=== PATIENT | female | born 1930 | race Caucasian/White ===

== ENCOUNTER 2018-12-16 11:59 | Inpatient (IN) ==
[2018-12-16 12:43] LABS: Basophils # (auto) 0.05 K/uL (0-0.2); Basophils % (auto) 0.5 %; Eosinophils % (auto) 2.9 %; Hemoglobin 14.6 g/dL (12.0-16.0); Immature Granulocytes # (auto) 0.03 K/uL (0.00-0.02); Immature Granulocytes % (auto) 0.3 %; Lymphocytes # (auto) 2.52 K/uL (1.2-3.4); Lymphocytes % (auto) 24.7 %; Mean Corpuscular Volume 90.3 fL (80-100); Mean Platelet Volume 10.1 fL (7.4-10.4); Monocytes # (auto) 1.08 K/uL (0.11-0.59); Monocytes % (auto) 10.6 %; Neutrophils # (auto) 6.24 K/uL (1.4-6.5); Platelet Count 254 K/uL (130-400); RDW Coefficient of Variation 15.4 % (11.5-14.5); RDW Standard Deviation 50.8 fL (36.4-46.3); Red Blood Count 4.76 M/uL (4.2-5.4); White Blood Count 10.22 K/uL (4.8-10.8)
[2018-12-16 13:05] LABS: INR 1.1 (0.9-1.1); Partial Thromboplastin Time 27.1 Seconds (21.0-31.0); Prothrombin Time 10.9 Seconds (9.0-12.0)
[2018-12-16 13:07] LABS: Albumin Globulin Ratio 0.7 (0.9-2); Albumin Level 3.2 gm/dl (3.4-5.0); BUN Creatinine Ratio 17.7 (10-20); Bilirubin,Total 0.8 mg/dl (0.2-1); Calcium 9.9 mg/dl (8.5-10.1); Creatinine Clr Calc Pharmacy 31.5 ml/min; Est GFR (African American) 54.9; Est GFR (Non-African American) 47.4; Globulin 4.7 gm/dl (2.5-4.0); Potassium 4.3 mmol/L (3.5-5.1); Total Protein 7.9 gm/dl (6.4-8.2)
[2018-12-16] MEDS ORDERED: LABETALOL HCL IV 5 MG/ML 20ML IV STA (13:58)
[2018-12-16] MEDS ORDERED: ASPIRIN CHEW 324 MG PO STA (14:04)
--- NOTE | 2018-12-16 16:52 | History & Physical Report ---
Date of Service December 16, 2018 Assessment & Plan (1) Cerebrovascular accident, embolic: 88F with known paroxysmal atrial fibrillation on eliquis who presents to the hospital after a routine brain MRI found bilateral infarcts suspicious for embolic stroke. Per report, she has had gradual worsening memory loss over the last 6-12 months. #CVA -Brain MRI 16 December shows foci of acute and subacute infarct in the left temporal and occipital lobes, right frontal lobe, right basal ganglia. Bilateral distribution of the infarcts suspicious for embolic etiology. Also an old right parietal lobe infarct. -Pt has known risk factors and is currently on Eliquis. Question of noncompliance (given memory loss) v failure of NOAC. Anti factor Xa>1.5 suggests presence of medication but can not be reliable for efficacy. May need to consider warfarin. -Neurology consulted, appreciate recommendations. -continue Eliquis -pending CTA head and neck -pending TTE -pending lipids, A1C -if pass swallow eval, ok for PO meds and heart healthy diet. -Neuro checks, PT/OT, Speech #Paroxysmal atrial fibrillation on eliquis -rate controlled here -TTE pending as above -continue eliquis FEN/GI: NSS at 60ml/hr while NPO. Can be discontinued once passes swallow eval as above. DVT ppx: ASA, eliquis CODE STATUS: FULL as discussed with pt and son at bedside. DISPO: Med/Tele Other on going medical problems: #Hypertension -cont home telmisartan #hyperlipidemia -cont home pravastatin 20mg #Hypothyroid -cont home levothyroxine Incontinence -cont home darifenacin (2) Dysphasia: (3) Atrial fibrillation: (4) Hypertension: (5) Hyperlipidemia: (6) Short-term memory loss: History of Present Illness Primary Care Provider: Charles Blanchard Patient presented to her PCP on December 07 with complaint of short-term memory loss, a brain MRI was ordered. There was also concern for aspiration risk due to observed choking when swallowing. Her atrial fibrillation was rate controlled at that time. She was alert and answered questions appropriately at that time however was not able to draw clock or say who the president of the country was which was new for her as of 1 year prior. Subsequent to an abnormal brain MRI today suspicious for embolic stroke, hospitalist service is consulted for admission/further evaluation. She is accompanied by her son today. PMH -Atrial fibrillation -Echo in 2015 normal LVH, EF 65%. Severe mitral annular calcification, moderate TR, mild LVH. SH Uses meals on wheels for 1 meal, she has an aide who comes every evening for 3 hours. Her son is her caregiver. Has a history of falls at home. Needs help with self hygiene. Allergies Allergy/AdvReac Type Severity Reaction Status Date / Time No Known Allergies Allergy Unverified 02/01/15 22:20 Home Medications Home Medications Medication Instructions Recorded Confirmed Type apixaban [Eliquis] 2.5 mg PO BID 12/16/18 12/16/18 History calcium carbonate-vitamin D3 1 tab PO DAILY 12/16/18 12/16/18 History [[place] 500 + D3] darifenacin 7.5 mg PO DAILY 12/16/18 12/16/18 History levothyroxine 75 mcg PO DAILY 12/16/18 12/16/18 History multivitamin 1 tab PO DAILY 12/16/18 12/16/18 History omega-3 fatty acids 1,000 mg PO DAILY 12/16/18 12/16/18 History pravastatin 20 mg PO HS 12/16/18 12/16/18 History telmisartan 80 mg PO BID 12/16/18 12/16/18 History Past Med/Surg History Medical History Urinary tract infection (Acute) Atrial fibrillation with rapid ventricular response (Acute) Heart disease (Chronic) Hypertension (Chronic) Hx of glaucoma Family History Other Family history non-contributory Social History Preferred Language: Kiswahili marital status: Single Current Living Situation: Family current occupational status: retired Feels Safe at Home: Yes Smoking Status: Never smoker Review of Systems All systems reviewed & are unremarkable except as noted in HPI & below Physical Exam Vital Signs (Past 24 Hours): Last Vital Signs Temp 36.7 C 12/16/18 12:00 Pulse 88 12/16/18 15:50 Resp 18 12/16/18 15:50 BP 141/91 H 12/16/18 15:50 Pulse Ox 98 12/16/18 15:50 Physical Exam: Vitals noted as above and within normal limits with the exception of mild hypertension. GENERAL: Awake, answers questions appropriately, nontoxic-appearing, in no distress HENT: Normocephalic, atraumatic. Mucus membranes appear dry. EYES: Sclera non-icteric. EOMI. Conjunctival vertical pigmentation noted bilaterally. NECK: Supple. Full range of motion. RESPIRATORY: Clear to auscultation. Normal work of breathing. CARDIAC: Irreg/irreg. Extremities warm and well perfused, 2+ radial pulses bilaterally; 2+ posterior tibialis pulses bilaterally. ABDOMEN: Soft, non-distended. No tenderness to palpation in all four quadrants. No rebound or guarding. No masses. Bowel sounds are normal. LOWER EXTREMITIES: Inspection of calves reveal equal size bilaterally. They are non-tender. No edema. No discoloration. NEURO: No focal motor deficits noted. Speech in tact. EOMI. Sensation in tact. CN II-XII in tact. Decreased vision deficit in right eye. Cerebellar testing in tact. SKIN: Rash not present. No jaundice noted. Significant lesions not present. PSYCH: Appropriate mood and affect. Cooperative. Exam as done by Chayo Liang MD, Scrub Nurse. Results & Data Laboratory Results 12/16/18 12/16/18 12/16/18 Range/Units 15:02 12:41 12:21 WBC (4.8-10.8) K/uL RBC (4.2-5.4) M/uL Hgb (12.0-16.0) g/dL Hct (37-47) % MCV (80-100) fL MCH (25-34) pg MCHC (32-36) g/dL RDW Std Deviation (36.4-46.3) fL RDW Coeff of Nicole (11.5-14.5) % Plt Count (130-400) K/uL MPV (7.4-10.4) fL Immature Gran % (Auto) % Neut % (Auto) % Lymph % (Auto) % [place] % (Auto) % Eos % (Auto) % Baso % (Auto) % Immature Gran # (Auto) (0.00-0.02) K/uL Neut # (Auto) (1.4-6.5) K/uL Lymph # (Auto) (1.2-3.4) K/uL [place] # (Auto) (0.11-0.59) K/uL Eos # (Auto) (0-0.5) K/uL Baso # (Auto) (0-0.2) K/uL PT (9.0-12.0) Seconds INR (0.9-1.1) APTT (21.0-31.0) Seconds PTT Ratio Heparin Anti-Xa, LM Wt > 1.50 Cancelled Sodium (136-145) mmol/L Potassium (3.5-5.1) mmol/L Chloride (98-107) mmol/L Carbon Dioxide (21-32) mmol/L Anion Gap (3-11) BUN (7-18) mg/dl Creatinine (0.6-1.2) mg/dl Est Cr Clr Drug Dosing ml/min Est GFR ( Amer) Est GFR (Non-Af Amer) BUN/Creatinine Ratio (10-20) Glucose (70-99) mg/dl Calcium (8.5-10.1) mg/dl Magnesium (1.8-2.4) mg/dl Total Bilirubin (0.2-1) mg/dl AST (15-37) U/L ALT (12-78) U/L Alkaline Phosphatase (45-117) U/L Total Protein (6.4-8.2) gm/dl Albumin (3.4-5.0) gm/dl Globulin (2.5-4.0) gm/dl Albumin/Globulin Ratio (0.9-2) Specimen Hemolysis Blood Type O Positive Antibody Screen NEGATIVE 12/16/18 12/16/18 12/16/18 Range/Units 12:21 12:21 12:21 WBC 10.22 (4.8-10.8) K/uL RBC 4.76 (4.2-5.4) M/uL Hgb 14.6 (12.0-16.0) g/dL Hct 43.0 (37-47) % MCV 90.3 (80-100) fL MCH 30.7 (25-34) pg MCHC 34.0 (32-36) g/dL RDW Std Deviation 50.8 H (36.4-46.3) fL RDW Coeff of Nicole 15.4 H (11.5-14.5) % Plt Count 254 (130-400) K/uL MPV 10.1 (7.4-10.4) fL Immature Gran % (Auto) 0.3 % Neut % (Auto) 61.0 % Lymph % (Auto) 24.7 % [place] % (Auto) 10.6 % Eos % (Auto) 2.9 % Baso % (Auto) 0.5 % Immature Gran # (Auto) 0.03 H (0.00-0.02) K/uL Neut # (Auto) 6.24 (1.4-6.5) K/uL Lymph # (Auto) 2.52 (1.2-3.4) K/uL [place] # (Auto) 1.08 H (0.11-0.59) K/uL Eos # (Auto) 0.30 (0-0.5) K/uL Baso # (Auto) 0.05 (0-0.2) K/uL PT 10.9 (9.0-12.0) Seconds INR 1.1 (0.9-1.1) APTT 27.1 (21.0-31.0) Seconds PTT Ratio 1.0 Heparin Anti-Xa, LM Wt Sodium 138 (136-145) mmol/L Potassium 4.3 (3.5-5.1) mmol/L Chloride 107 (98-107) mmol/L Carbon Dioxide 27 (21-32) mmol/L Anion Gap 4.0 (3-11) BUN 19 H (7-18) mg/dl Creatinine 1.05 (0.6-1.2) mg/dl Est Cr Clr Drug Dosing 31.5 ml/min Est GFR ( Amer) 54.9 Est GFR (Non-Af Amer) 47.4 BUN/Creatinine Ratio 17.7 (10-20) Glucose 122 H (70-99) mg/dl Calcium 9.9 (8.5-10.1) mg/dl Magnesium 2.0 (1.8-2.4) mg/dl Total Bilirubin 0.8 (0.2-1) mg/dl AST 29 (15-37) U/L ALT 20 (12-78) U/L Alkaline Phosphatase 102 (45-117) U/L Total Protein 7.9 (6.4-8.2) gm/dl Albumin 3.2 L (3.4-5.0) gm/dl Globulin 4.7 H (2.5-4.0) gm/dl Albumin/Globulin Ratio 0.7 L (0.9-2) Specimen Hemolysis Blood Type Antibody Screen Diagnostic Findings [place], [place] [phone] Magnetic Resonance Report Patient: Jackie EWING Date: 12/16/18 MR#: [id number]: [address] Acct ID:[id number]: Date: [address] Zip: [place] [address] Age: 88Location: MRI Sex: F Room/Bed: Att Phy: Charles Blanchard M.D.Diagnosis: HEARING LOSS, MEMORY LOSS Jenelle Phy: Charles Blanchard M.D.Service Date: 12/16/18 Fam Phy: Interpreting Phy: Joe Hurd MD Admit Phy: Ordering Phy: Charles Blanchard M.D. cc: ~ MRI OF THE BRAIN WITHOUT CONTRAST CLINICAL HISTORY: HEARING LOSS, MEMORY LOSS COMPARISON STUDY: Noncontrast head CT dated 08/31/2016 FINDINGS: Sagittal T1, axial diffusion, proton density and T2 weighted axial, coronal FLAIR, and axial T1-weighted images were acquired. No intra or extra-axial mass lesions are visualized There are foci restricted water diffusion within the left occipital and temporal lobes. There is also punctate foci project water diffusion within the right frontal lobe and right basal ganglia. The findings are consistent with acute/subacute infarcts. Given the biodistribution, an embolic etiology must be considered. There is no evidence of ventricular dilatation. Proton density T2-weighted and FLAIR images reveal scattered foci of increased T2 signal within the white matter, likely on a small vessel basis. Foci of increased T2 signal within the left temporal and occipital lobes are consistent with infarct. There is also evidence for a prior right posterior parietal lobe infarct. There are no abnormal flow voids. IMPRESSION: 1. Foci of acute/subacute infarction involving the left temporal and occipital lobes 2. Punctate foci project water diffusion within the right frontal lobe and right basal ganglia, also consistent with acute/subacute infarcts 3. The bilateral distribution of the infarcts raise the possibility of an embolic etiology 4. Old right parietal lobe infarct Electronically signed by: Joe Hurd M.D. 12/16/2018 11:31 AM Code Status & VTE Plan Code Status FULL VTE Prophylaxis Plan VTE Prophylaxis will be ordered: Yes Supervising Physician Co-Signing Physician Notes Pt seen/examined in conjunction with resident MD Jez Liang. Orders and plan of admission formulated with resident. 88 y/o F Hx AF, HTN, HLD, Hypothroid - anticoagulated with Apixaban. Sent fro MRI by PCP due to memory loss and concern for dysphagia. MRI revealed foci of acute and subacute infarct in the left temporal and occipital lobes, right frontal lobe, right basal ganglia. This would indicate embolic CVA despite Apixaban although persistent compliance could not be verified, especially in lite of her dementia. OE AAO - speech clear S1,2 irr CTAB NT, ND No CCE No clear motor deficits at time of admission P: - She is placed on ASA for this kourtney A neuro consult is pending and decision on continuation of Apixaban will be made It may be better to place her on Coumadin so levels can be monitored - Cont Synthroid - Cont Statin and hold Telmisartan due to acute CVAs Resident Activity Tracking Resident Involvement: Resident Care Provided Care Provided: Adult Hospital Medicine (1) Cerebrovascular accident, embolic Precerebral and cerebral artery: unspecified cerebral artery Qualified Code(s): I63.40 - Cerebral infarction due to embolism of unspecified cerebral artery
--- NOTE | 2018-12-16 18:59 | Emergency Department Note ---
Entered by Laney Herrera acting as a scribe for History of Present Illness General Chief complaint: Stroke/CVA Symptoms Stated complaint: SENT MRI POSSIBLE STROKE Time Seen by Provider: 12/16/18 12:09 Source: patient and family History of Present Illness Onset (ago): month(s) (a few months ago) Location: head Pain Consistency: + other (persistent) Maximum Pain Intensity: 0 Quality: + other (stroke like symptoms) Associated symptoms: + denies other symptoms (difficulty walking, abdominal pain, vision changes) and + other (memory loss, difficulty swallowing); no chest pain, no fever/chills (fever), no headaches, no nausea/vomiting (vomiting), no shortness of breath and no weakness (numbness) The patient is an 88 year old female who presents to the Emergency Room with complaints of persistent stroke like symptoms starting a few months ago. The patients son states that for the past few months the patient has been having increased memory loss and difficulty swallowing when she eats solid foods. He notes that she has no issues drinking, but when she eats, she coughs. He states that he took her to her PCP and they ordered a brain scan. He states that the findings on the MRI showed that she has had a stroke and they were sent to the ED. The patient states that she feels fine. The patients son notes that she is on Xarelto for a history of atrial fibrillation. He notes that she is not always in that rhythm and it comes and goes. He notes that he doesn't believe she has missed any doses of her Xarelto. The patient denies numbness/weakness on one side of body, difficulty walking, headache, vomiting, fever, chest pain, shortness of breath, abdominal pain, vision changes, and a history of stroke or PE. Home Medications Home Medications Medication Instructions Recorded Confirmed Type apixaban [Eliquis] 2.5 mg PO BID 12/16/18 12/16/18 History calcium carbonate-vitamin D3 1 tab PO DAILY 12/16/18 12/16/18 History [[place] 500 + D3] darifenacin 7.5 mg PO DAILY 12/16/18 12/16/18 History levothyroxine 75 mcg PO DAILY 12/16/18 12/16/18 History multivitamin 1 tab PO DAILY 12/16/18 12/16/18 History omega-3 fatty acids 1,000 mg PO DAILY 12/16/18 12/16/18 History pravastatin 20 mg PO HS 12/16/18 12/16/18 History telmisartan 80 mg PO BID 12/16/18 12/16/18 History Allergies Allergy/AdvReac Type Severity Reaction Status Date / Time No Known Allergies Allergy Unverified 02/01/15 22:20 Past Med/Surg History Medical History Urinary tract infection (Acute) Atrial fibrillation with rapid ventricular response (Acute) Heart disease (Chronic) Hypertension (Chronic) Hx of glaucoma Family History Other Family history non-contributory Social History Preferred Language: Albanian marital status: Single Current Living Situation: Family current occupational status: retired Feels Safe at Home: Yes Smoking Status: Never smoker Review of Systems See HPI for pertinent positives & negatives. and A total of 10 systems reviewed and were otherwise negative Physical Exam Vital Signs Vital Signs - 24 hr 12/16/18 12:00 12/16/18 12:31 12/16/18 12:35 Temperature 36.7 C Temperature Source Oral Sepsis Recent Fever Within 48 Hours No Sepsis New/Unexplained Change in Mental Status No Sepsis Action Taken by Nursing No Action Required Pulse Rate 75 79 78 Pulse Rate [Finger] 72 Pulse Rate from SpO2 Sensor 83 74 Pulse Rhythm [Finger] Pulse Strength [Finger] Respiratory Rate 18 15 13 Respiratory Effort / Characteristics Non-Labored Spontaneous Respiratory Depth Normal Respiratory Pattern Regular Blood Pressure 140/85 176/111 H Blood Pressure [Right Arm] 176/111 H Blood Pressure Mean 103 132 Blood Pressure Mean [Right Arm] 132 Blood Pressure Position Sitting Pulse Oximetry 98 97 96 Oxygen Delivery Method Room Air Room Air 12/16/18 12:40 12/16/18 12:50 12/16/18 13:00 Temperature Temperature Source Sepsis Recent Fever Within 48 Hours Sepsis New/Unexplained Change in Mental Status Sepsis Action Taken by Nursing Pulse Rate 85 78 82 Pulse Rate [Finger] Pulse Rate from SpO2 Sensor 82 81 75 Pulse Rhythm [Finger] Pulse Strength [Finger] Respiratory Rate 15 20 17 Respiratory Effort / Characteristics Respiratory Depth Respiratory Pattern Blood Pressure Blood Pressure [Right Arm] Blood Pressure Mean Blood Pressure Mean [Right Arm] Blood Pressure Position Pulse Oximetry 97 96 97 Oxygen Delivery Method 12/16/18 13:01 12/16/18 13:10 12/16/18 13:20 Temperature Temperature Source Sepsis Recent Fever Within 48 Hours Sepsis New/Unexplained Change in Mental Status Sepsis Action Taken by Nursing Pulse Rate 76 77 83 Pulse Rate [Finger] Pulse Rate from SpO2 Sensor 74 77 86 Pulse Rhythm [Finger] Pulse Strength [Finger] Respiratory Rate 18 18 25 H Respiratory Effort / Characteristics Respiratory Depth Respiratory Pattern Blood Pressure 190/114 H Blood Pressure [Right Arm] Blood Pressure Mean 139 Blood Pressure Mean [Right Arm] Blood Pressure Position Pulse Oximetry 94 98 96 Oxygen Delivery Method 12/16/18 13:30 12/16/18 13:31 12/16/18 13:32 Temperature Temperature Source Sepsis Recent Fever Within 48 Hours Sepsis New/Unexplained Change in Mental Status Sepsis Action Taken by Nursing Pulse Rate 89 86 86 Pulse Rate [Finger] Pulse Rate from SpO2 Sensor 79 88 80 Pulse Rhythm [Finger] Pulse Strength [Finger] Respiratory Rate 17 23 16 Respiratory Effort / Characteristics Respiratory Depth Respiratory Pattern Blood Pressure 192/106 H Blood Pressure [Right Arm] Blood Pressure Mean 134 Blood Pressure Mean [Right Arm] Blood Pressure Position Pulse Oximetry 96 98 96 Oxygen Delivery Method 12/16/18 13:40 12/16/18 13:50 12/16/18 14:00 Temperature Temperature Source Sepsis Recent Fever Within 48 Hours Sepsis New/Unexplained Change in Mental Status Sepsis Action Taken by Nursing Pulse Rate 79 87 98 H Pulse Rate [Finger] 87 Pulse Rate from SpO2 Sensor 87 84 89 Pulse Rhythm [Finger] Pulse Strength [Finger] Respiratory Rate 16 14 18 Respiratory Effort / Characteristics Respiratory Depth Respiratory Pattern Blood Pressure Blood Pressure [Right Arm] 192/106 H Blood Pressure Mean Blood Pressure Mean [Right Arm] 134 Blood Pressure Position Pulse Oximetry 95 96 96 Oxygen Delivery Method Room Air 12/16/18 14:01 12/16/18 15:00 12/16/18 15:50 Temperature Temperature Source Sepsis Recent Fever Within 48 Hours Sepsis New/Unexplained Change in Mental Status Sepsis Action Taken by Nursing Pulse Rate 81 Pulse Rate [Finger] 80 88 Pulse Rate from SpO2 Sensor 88 Pulse Rhythm [Finger] Regular Pulse Strength [Finger] Normal Respiratory Rate 20 18 18 Respiratory Effort / Characteristics Non-Labored Respiratory Depth Normal Respiratory Pattern Regular Blood Pressure 166/106 H Blood Pressure [Right Arm] 161/95 H 141/91 H Blood Pressure Mean 126 Blood Pressure Mean [Right Arm] 117 107 Blood Pressure Position Pulse Oximetry 96 96 98 Oxygen Delivery Method Room Air 12/16/18 17:00 12/16/18 18:20 Temperature Temperature Source Sepsis Recent Fever Within 48 Hours Sepsis New/Unexplained Change in Mental Status Sepsis Action Taken by Nursing Pulse Rate Pulse Rate [Finger] 88 98 H Pulse Rate from SpO2 Sensor Pulse Rhythm [Finger] Pulse Strength [Finger] Respiratory Rate 18 18 Respiratory Effort / Characteristics Respiratory Depth Respiratory Pattern Blood Pressure Blood Pressure [Right Arm] 152/97 H 152/107 H Blood Pressure Mean Blood Pressure Mean [Right Arm] 115 122 Blood Pressure Position Pulse Oximetry 98 98 Oxygen Delivery Method Constitutional: Vital signs reviewed. Eyes: Pupils are equal round reactive to light. Conjunctiva are noninjected. ENT: Pharynx is clear without erythema or exudate. Mucous membranes are moist. Neck supple without meningeal signs. Respiratory: Clear to auscultation bilaterally. Breath sounds are equal bilaterally. Cardiovascular: Regular rate and rhythm. No rubs or gallops. GI: Soft, nondistended and nontender. Bowel sounds are present. Musculoskeletal: No peripheral edema. No lower extremity tenderness. Integumentary: No cyanosis. Neurological: The patient is awake and alert. Cranial nerves II-XII are intact. Motor is 5 out of 5 all extremities. Sensation is intact to light touch all extremities. Normal speech. No pronator drift. No limb ataxia. Hard of hearing. Psychiatric: Normal affect. Course 1210: The patient was evaluated in room C10, and a complete history and physical examination were performed. 1320: I reviewed the patient's case with Dr. Yokasta HUNT Hospitalist. He will evaluate the patient for further management. He requested that I speak to Neurology. 1350: I discussed the patient's case with Dr. Cason-Neurology. She does not recommend anticoagulation with heparin or using any other anticoagulant on the patient at this time. She does recommend a Xa activity test. She recommends just having her take Aspirin, doing a carotid ultrasound, and an echo. She also recommends blood pressure control. 1359: I updated Dr. Chin Hosptalist on Neurology's recommendations at this time. 1403: I reevaluated the patient and her blood pressure was 166/106. I instructed the nurse to hold her Labatolol at this time. The patient states that she did take her morning medications. I updated her and her son on the test results and treatment plan. They verbally agree and understand. Consultations Consultation #1: I reviewed the patient's case with Dr. Yokasta HUNT Hospitalist. He will evaluate the patient for further management. He requested that I speak t o Neurology. Time: 13:20 Consultation #2: I discussed the patient's case with Dr. Cason-Neurology. She does not recommend anticoagulation with heparin or using any other anticoagulant on the patient at this time. She does recommend a Xa activity test. She recommends just having her take Aspirin, doing a carotid ultrasound, and an echo. She also recommends blood pressure control. Time: 13:50 Consultation #3: I updated Dr. Chin Hosptalist on Neurology's recommendations at this time. Time: 13:59 Administered Medications Discontinued Medications Aspirin (Aspirin) 324 mg PO NOW STA Stop: 12/16/18 14:05 Last Admin: 12/16/18 14:09 Dose: 324 mg Documented by: [id number] Labetalol HCl (Normodyne) 5 mg IV NOW STA Stop: 12/16/18 13:59 Last Admin: 12/16/18 18:38 Dose: Not Given Documented by: [id number] Medical Decision Making Differential Diagnosis Differential diagnoses include stroke, medication noncompliance, cardiac thrombus, PFO, DVT. Medical Records Attestation: I reviewed the patient's medical records. MRI OF THE BRAIN WITHOUT CONTRAST IMPRESSION: 1. Foci of acute/subacute infarction involving the left temporal and occipital lobes 2. Punctate foci project water diffusion within the right frontal lobe and right basal ganglia, also consistent with acute/subacute infarcts 3. The bilateral distribution of the infarcts raise the possibility of an embol ic etiology 4. Old right parietal lobe infarct Electronically signed by: Joe Hurd M.D. 12/16/2018 11:31 AM Home Medications Current Medication List: was personally reviewed by me Laboratory Data Attestation: I reviewed the patient's lab results. Result diagrams: 12/16/18 12:21 12/16/18 12:21 Lab Results 12/16/18 12/16/18 12/16/18 Range/Units 12:21 12:21 12:21 WBC 10.22 (4.8-10.8) K/uL RBC 4.76 (4.2-5.4) M/uL Hgb 14.6 (12.0-16.0) g/dL Hct 43.0 (37-47) % MCV 90.3 (80-100) fL MCH 30.7 (25-34) pg MCHC 34.0 (32-36) g/dL RDW Std Deviation 50.8 H (36.4-46.3) fL RDW Coeff of Nicole 15.4 H (11.5-14.5) % Plt Count 254 (130-400) K/uL MPV 10.1 (7.4-10.4) fL Immature Gran % (Auto) 0.3 % Neut % (Auto) 61.0 % Lymph % (Auto) 24.7 % Crockett % (Auto) 10.6 % Eos % (Auto) 2.9 % Baso % (Auto) 0.5 % Immature Gran # (Auto) 0.03 H (0.00-0.02) K/uL Neut # (Auto) 6.24 (1.4-6.5) K/uL Lymph # (Auto) 2.52 (1.2-3.4) K/uL [place]ckett # (Auto) 1.08 H (0.11-0.59) K/uL Eos # (Auto) 0.30 (0-0.5) K/uL Baso # (Auto) 0.05 (0-0.2) K/uL PT 10.9 (9.0-12.0) Seconds INR 1.1 (0.9-1.1) APTT 27.1 (21.0-31.0) Seconds PTT Ratio 1.0 Heparin Anti-Xa, LM Wt Sodium 138 (136-145) mmol/L Potassium 4.3 (3.5-5.1) mmol/L Chloride 107 (98-107) mmol/L Carbon Dioxide 27 (21-32) mmol/L Anion Gap 4.0 (3-11) BUN 19 H (7-18) mg/dl Creatinine 1.05 (0.6-1.2) mg/dl Est Cr Clr Drug Dosing 31.5 ml/min Est GFR ( Amer) 54.9 Est GFR (Non-Af Amer) 47.4 BUN/Creatinine Ratio 17.7 (10-20) Glucose 122 H (70-99) mg/dl Calcium 9.9 (8.5-10.1) mg/dl Magnesium 2.0 (1.8-2.4) mg/dl Total Bilirubin 0.8 (0.2-1) mg/dl AST 29 (15-37) U/L ALT 20 (12-78) U/L Alkaline Phosphatase 102 (45-117) U/L Total Protein 7.9 (6.4-8.2) gm/dl Albumin 3.2 L (3.4-5.0) gm/dl Globulin 4.7 H (2.5-4.0) gm/dl Albumin/Globulin Ratio 0.7 L (0.9-2) Specimen Hemolysis Blood Type Antibody Screen 12/16/18 12/16/18 12/16/18 Range/Units 12:21 12:41 15:02 WBC (4.8-10.8) K/uL RBC (4.2-5.4) M/uL Hgb (12.0-16.0) g/dL Hct (37-47) % MCV (80-100) fL MCH (25-34) pg MCHC (32-36) g/dL RDW Std Deviation (36.4-46.3) fL RDW Coeff of Nicole (11.5-14.5) % Plt Count (130-400) K/uL MPV (7.4-10.4) fL Immature Gran % (Auto) % Neut % (Auto) % Lymph % (Auto) % [place] % (Auto) % Eos % (Auto) % Baso % (Auto) % Immature Gran # (Auto) (0.00-0.02) K/uL Neut # (Auto) (1.4-6.5) K/uL Lymph # (Auto) (1.2-3.4) K/uL [place] # (Auto) (0.11-0.59) K/uL Eos # (Auto) (0-0.5) K/uL Baso # (Auto) (0-0.2) K/uL PT (9.0-12.0) Seconds INR (0.9-1.1) APTT (21.0-31.0) Seconds PTT Ratio Heparin Anti-Xa, LM Wt Cancelled > 1.50 Sodium (136-145) mmol/L Potassium (3.5-5.1) mmol/L Chloride (98-107) mmol/L Carbon Dioxide (21-32) mmol/L Anion Gap (3-11) BUN (7-18) mg/dl Creatinine (0.6-1.2) mg/dl Est Cr Clr Drug Dosing ml/min Est GFR ( Amer) Est GFR (Non-Af Amer) BUN/Creatinine Ratio (10-20) Glucose (70-99) mg/dl Calcium (8.5-10.1) mg/dl Magnesium (1.8-2.4) mg/dl Total Bilirubin (0.2-1) mg/dl AST (15-37) U/L ALT (12-78) U/L Alkaline Phosphatase (45-117) U/L Total Protein (6.4-8.2) gm/dl Albumin (3.4-5.0) gm/dl Globulin (2.5-4.0) gm/dl Albumin/Globulin Ratio (0.9-2) Specimen Hemolysis Blood Type O Positive Antibody Screen NEGATIVE ECG Data Attestation: I personally reviewed and interpreted this ECG as follows: Indication: other (stroke) Rate (beats per minute): 67 Rhythm: atrial fibrillation Findings: + RBBB (incomplete); no PVC and no ST elevation Blood Pressure Blood Pressure Findings: Elevated blood pressure Blood Pressure Disposition: further management by hospitalist [facility] Narrative I did evaluate the patient as noted above. I did obtain history from patient as well as her son. The patient has been having several months of neurologic symptoms including difficulty with swallowing solids as well as memory issues. She had an MRI today as described above. She has had acute and subacute infarcts likely embolic. Her sons does state that she is on Xarelto. Looking through the records she is actually on Eliquis. He does states she has been compliant with this medication. IV access was established. The patient was placed on a continuous phototypesetting equipment monitor. I did order and personally review the patient's 12-lead EKG as described above. Twelve-lead EKG demonstrates atrial fibrillation. I did order and review the patient's blood work as noted in the electronic medical record. Her white count is not elevated. Electrolytes are unremarkable. I did discuss the case with neurology. Dr. Barfield recommended starting aspirin. She did not recommend IV heparin. An anti-Xa was sent and is positive consistent with her Eliquis use. I did discuss case with the hospitalist and therapeutic case manager. The patient's blood pressure was initially slightly high but progressively increased. I did order labetalol but then it started to trend downward and so I held it. They will continue to monitor. I did discuss test results with the patient's son as well as treatment plan. Impression & Plan Cerebrovascular accident, embolic, Dysphagia Discharge Plan Visit Data Chief Complaint: Stroke/CVA Symptoms Stated Complaint: SENT MRI POSSIBLE STROKE ED Provider: Cesar Pathak Discharge Problem: Cerebrovascular accident, embolic, Dysphagia Patient Disposition: Being Evaluated by Hospitalist Discharge Instructions Interventions: ED Discharge Assessment Last Done: 12/16/18 18:39 Discharge Problem: Cerebrovascular accident, embolic Qualifiers: Precerebral and cerebral artery: unspecified cerebral artery Qualified Code(s): I63.40 - Cerebral infarction due to embolism of unspecified cerebral artery Dysphagia Qualifiers: Dysphagia type: unspecified Qualified Code(s): R13.10 - Dysphagia, unspecified The scribe's documentation has been prepared under my direction and personally reviewed by me in its entirety. I confirm that the note above accurately reflects all work, treatment, procedures, and medical decision making performed by me.
[2018-12-16] MEDS ORDERED: PHARMACIST DISCHARGE MED REC CONSULT PRN (19:26)
[2018-12-16] MEDS ORDERED: OPTIRAY 320 125ml IV PRN (20:19)
[2018-12-16] MEDS: SODIUM CHLORIDE 0.9% 1000ML 1,000 ML IV SCH (20:35)
--- NOTE | 2018-12-16 20:36 | CT Scan Report ---
CT angio head w con HISTORY: Stroke cva TECHNIQUE: Multiaxial CT angiography of the head was performed IV contrast: The cc Maximum i ntensity projection images were also obtained. A dose lowering technique was utilized adhering to e principles of ALARA. COMPARISON: None. FINDINGS: The bulk of the intracranial vasculature appears to be intact. There is moderate atheroscle rotic change of the carotid siphons. There is no evidence for aneurysm formation. There is slight truncation of the peripheral arterial structures of the middle cerebral circulation. Diminished vascular flow is identified to the posterior cerebral circulation.. This presumably is ath erosclerotic. A major filling defect is not identified. Vertebral basilar system is grossly intact. Vascular flow to the posterior cerebral circulation appea r somewhat compromised. IMPRESSION: 1. Moderate generalized atherosclerotic change throughout the intracranial vasculature. 2. Focal truncation of several peripheral vessels of the middle cerebral arterial distributions with a general decrease in vascular flow to the posterior cerebral system. These findings are presumably a therosclerotic. 3. No significant abnormality of the vertebral basilar system. The above report was generated using voice recognition software. It may contain grammatical, syntax or spelling errors. Electronically signed by: Dwaine Chaney M.D. 12/16/2018 8:34 PM
--- NOTE | 2018-12-16 20:43 | CT Scan Report ---
CT angio neck with con HISTORY: Stroke cva TECHNIQUE: Multiaxial CT angiography of the neck was performed IV contrast: 40 cc All measurem ents were calculated based on NASCET criteria. Maximum intensity projection images were also obtaine d. A dose lowering technique was utilized adhering to the principles of ALARA. COMPARISON STUDY: None. FINDINGS: The aortic arch and proximal great vessels are widely patent. Considerable plaque formatio n at the carotid bifurcations. 70% narrowing of the current bifurcations on the right as well as left . Considerable variation in diameter of the right vertebral artery compared to the left. This may be congenital. There is superimposed high degree of stenosis at approximately level of C2. Basilar appea rs unremarkable as does the left vertebral. IMPRESSION: 1. Considerable plaque formation of the carotid bifurcations. 2. 70-75% narrowing of the right carotid bifurcation and right internal carotid artery with 70% narro wing on the left. 3. Small caliber right vertebral vessel with a high degree of stenosis at the level of C2. 4. The basilar and left vertebral artery appear unremarkable. The above report was generated using voice recognition software. It may contain grammatical, syntax or spelling errors. Electronically signed by: Dwaine Chaney M.D. 12/16/2018 8:42 PM
[2018-12-16] MEDS ORDERED: TELMISARTAN 40 MG TAB PO SCH (21:00)
[2018-12-16] MEDS: APIXABAN 2.5 MG TAB PO SCH (21:20)
[2018-12-16] MEDS: PRAVASTATIN SOD 20 MG TAB PO SCH (21:21)
[2018-12-17] MEDS: LEVOTHYROXINE SODIUM 75 MCG TABLET PO SCH (06:04)
[2018-12-17 06:22] LABS: Estimated Average Glucose 117 mg/dl
[2018-12-17 06:52] LABS: Basophils # (auto) 0.06 K/uL (0-0.2); Basophils % (auto) 0.8 %; Eosinophils # (auto) 0.36 K/uL (0-0.5); Eosinophils % (auto) 4.7 %; Hematocrit (blood only) 40.6 % (37-47); Hemoglobin 13.7 g/dL (12.0-16.0); Immature Granulocytes # (auto) 0.02 K/uL (0.00-0.02); Immature Granulocytes % (auto) 0.3 %; Lymphocytes % (auto) 38.9 %; Mean Corpuscular Hgb Conc 33.7 g/dL (32-36); Mean Corpuscular Volume 90.4 fL (80-100); Mean Platelet Volume 9.9 fL (7.4-10.4); Monocytes # (auto) 0.91 K/uL (0.11-0.59); Monocytes % (auto) 11.8 %; Neutrophils # (auto) 3.37 K/uL (1.4-6.5); Neutrophils % (auto) 43.5 %; Platelet Count 232 K/uL (130-400); RDW Coefficient of Variation 15.6 % (11.5-14.5); RDW Standard Deviation 51.8 fL (36.4-46.3); Red Blood Count 4.49 M/uL (4.2-5.4); White Blood Count 7.72 K/uL (4.8-10.8)
[2018-12-17 06:59] LABS: INR 1.1 (0.9-1.1); Prothrombin Time 11.1 Seconds (9.0-12.0)
[2018-12-17 07:08] LABS: BUN Creatinine Ratio 21.9 (10-20); Calcium 9.2 mg/dl (8.5-10.1); Est GFR (Non-African American) 58.7; Potassium 3.9 mmol/L (3.5-5.1)
[2018-12-17] MEDS: APIXABAN 2.5 MG TAB PO SCH ×2 (08:45→20:51)
[2018-12-17] MEDS: MULTIVITAMIN TAB PO SCH (08:46)
[2018-12-17] MEDS: ASPIRIN 81 MG ECTAB PO SCH (08:46)
[2018-12-17] MEDS: OMEGA-3 (PURIFIED FISH OIL) 1 GM CAP PO SCH (08:46)
[2018-12-17] MEDS: CALCIUM 600MG + VIT D 400 IU TAB PO SCH (08:46)
--- NOTE | 2018-12-17 09:34 | Neurology Consultation ---
Date of Consultation December 17, 2018 Assessment & Plan (1) Cerebrovascular accident, embolic: Multifocal cardioembolic infarcts, acute to subacute. The largest infarct affects the left temporal and occipital lobes. She does have a few smaller infarcts within the right cerebral hemisphere as well. In addition to confusion, inattention, and mild aphasia, this patient also has a probable right visual field deficit. She does not have a gross hemiparesis. Patient should continue with Eliquis in light of her history of atrial fibrillation. I agree with adding daily low-dose aspirin. (2) Carotid stenosis, bilateral: This patient is a 70-75% stenosis at the right carotid bifurcation and a 70% stenosis of the left internal carotid artery on CT angiography. Interestingly, her largest infarct looks to be more consistent with a left [employer]UST[employer] territory. The significance of the observed carotid stenoses in the context of her recent infarct is not entirely clear. I tend to favor a cardioembolic etiology in light of her history of atrial fibrillation. In light of this patient's advanced age and history of atrial fibrillation, I doubt she would really be considered an appropriate candidate for carotid endarterectomy. Continued medical management would seem most appropriate. However, her bilateral carotid stenosis should have some additional outpatient monitoring with carotid ultrasound and perhaps a consultation with vascular surgery. (3) Short-term memory loss: The admission history suggests that this patient has been having some ongoing difficulty with short-term memory. She probably has an element of vascular dementia as well. However, in light of her acute infarcts it is difficult to get an accurate assessment of her baseline functioning. I suspect that she will be unable to return home to her typical living situation in light of her current neurocognitive impairments. We will see how she does with her assessments with PT/OT/speech therapy. I suspect she will require [facility] care going forward. History of Present Illness Reason for Consultation: stroke Requesting Physician: Chayo Liang MD Attending Physician: Rosalva Ochoa MD History of Present Illness The patient is an 88-year-old female with a chief complaint of memory loss and dysphagia that has been present for the past few months. Her son brought her to her primary care physician who ordered a brain MRI which revealed evidence of a recent stroke. There was subsequently instructed to go to the emergency department for further evaluation and management. The patient stroke does appear embolic. She does have a history of atrial fibrillation for which she is prescribed Eliquis. She seems to be significantly confused and is an unreliable historian. Other pertinent medical issues include hypertension, hyperlipidemia, and hypothyroidism. Her blood pressure was significantly elevated yesterday but appears to be improving. She is prescribed an antihypertensive, statin, and thyroid replacement as an outpatient. It sounds like the patient lives semi- independently. She has Meals on Wheels and a home health aide who visits her in the evening for a few hours. Her son is her primary caregiver. Again, the patient is an extremely poor historian. She is unable to provide any details pertaining to her history of present illness and does not complain of any specific symptoms at this time. Allergies Allergy/AdvReac Type Severity Reaction Status Date / Time No Known Allergies Allergy Unverified 02/01/15 22:20 Home Medications Home Medications Medication Instructions Recorded Confirmed Type apixaban [Eliquis] 2.5 mg PO BID 12/16/18 12/16/18 History calcium carbonate-vitamin D3 1 tab PO DAILY 12/16/18 12/16/18 History [[place] 500 + D3] darifenacin 7.5 mg PO DAILY 12/16/18 12/16/18 History levothyroxine 75 mcg PO DAILY 12/16/18 12/16/18 History multivitamin 1 tab PO DAILY 12/16/18 12/16/18 History omega-3 fatty acids 1,000 mg PO DAILY 12/16/18 12/16/18 History pravastatin 20 mg PO HS 12/16/18 12/16/18 History telmisartan 80 mg PO BID 12/16/18 12/16/18 History Patient History Medical History Urinary tract infection (Acute) Atrial fibrillation with rapid ventricular response (Acute) Heart disease (Chronic) Hypertension (Chronic) Hx of glaucoma Family History Other Family history non-contributory Social History Preferred Language: Monegasque Communication Ability: Effective Billing Collections Specialist Required: No Beliefs That Will Affect Care: None marital status: Single Current Living Situation: Alone current occupational status: retired Other Information That Helps Us Care for You: No Feels Safe at Home: Yes Safety Concerns: Feels Safe At This Time Smoking Status: Unknown if ever smoked Hx Alcohol Use: No Hx Substance Use: No Review of Systems Constitutional: no fever and no chills Eyes: no blind spots and no diplopia Ear, Nose, Mouth, Throat: no hearing loss Respiratory: no cough and no dyspnea Cardiovascular: no chest pain and no palpitations Gastrointestinal: no abdominal pain and no vomiting Genitourinary (Female): no dysuria Musculoskeletal: no myalgia Integumentary: + rash and + lesions Neurologic: no localized weakness, no numbness and no headache(s) Psychiatric: no paranoia and no hallucinations Hematologic / Lymphatic: no easy bleeding Physical Exam Vital Signs (Past 24 Hours): Last Vital Signs Temp 36.2 C L 12/17/18 07:08 Pulse 146 H 12/17/18 07:08 Resp 18 12/17/18 07:08 BP 134/80 12/17/18 07:08 Pulse Ox 90 12/17/18 07:08 Physical Exam: The patient is a well-developed elderly female. She is lying comfortably in bed in no acute distress. She is alert and oriented to person and hospital only. Recent and remote memory seem to be impaired although unable to reliably assess due to poor attention. Concentration impaired. Patient has mild difficulty with object naming and speech comprehension. She is able to copy simple commands but does seem to be a bit perseverative. She was able to perform simple calculations. Comprehension of simple vocabulary seems to be i ntact. There is a visual field deficit to the right with confrontation testing. Visual acuity is otherwise intact to finger count. Pupils equal round react to light and accommodation. Eye movements normal. There is no gaze preference. There is no nystagmus. Facial sensation intact. There is normal facial symmetry and strength. Hearing intact. Palate elevates to midline. Shoulder shrug intact. Tongue protrudes to midline. Sensation grossly intact in all 4 limbs to all modalities. No hemisensory neglect. Deep tendon reflexes are 2+ for the arms and legs. Plantar responses upgoing bilaterally. There is dysmetria with finger to nose and heel to rivera bilaterally. Ophthalmoscopic examination reveals normal-appearing optic disks and posterior segments. No papilledema or hemorrhages. Carotid pulses normal bilaterally, no bruits to auscultation. Gait and station not tested due to safety concerns. Patient exhibits normal muscle strength and tone for all 4 limbs. No atrophy. No abnormal movements observed. Results & Data Laboratory Results Today's labs reviewed. WBC 7.72, hemoglobin 13.7, platelet count 232, sodium 140, potassium 3.9, BUN 19, creatinine 0.88, glucose 86, calcium 9.2, triglycerides 105, cholesterol 134, HDL 37 Yesterday's labs reviewed. Hemoglobin A1c 5.7, LFTs normal. Diagnostic Findings Brain MRI completed yesterday reveals foci of acute/subacute infarct involving the left temporal and occipital lobes. There are a few small punctate infarcts within the right frontal lobe as well. There is a chronic appearing right parietal lobe infarct. Overall, patient's infarcts are likely embolic given the distribution. Images and report reviewed. CTA of the neck reveals a 70-75% narrowing of the right carotid bifurcation and a 70% narrowing at the right internal carotid artery. The right vertebral artery is of small caliber due to a severe stenosis at C2. CTA of the head reveals moderate generalized atherosclerotic change and focal truncation of several vessels of the bilateral MCA distributions due to atherosclerotic change. Electrocardiogram reveals atrial fibrillation, 67 bpm. (1) Cerebrovascular accident, embolic Precerebral and cerebral artery: unspecified cerebral artery Qualified Code(s): I63.40 - Cerebral infarction due to embolism of unspecified cerebral artery
[2018-12-17] MEDS ORDERED: PERFLUTREN LIPID MICROSPHERE (DEFINITY) IV ONE (10:30)
[2018-12-17] MEDS: SODIUM CHLORIDE 0.9% 1000ML 1,000 ML IV SCH (13:10)
--- NOTE | 2018-12-17 13:58 | Family Medicine Progress Note ---
Date of Service December 17, 2018 Assessment & Plan (1) Cerebrovascular accident, embolic: 88F with known PAF on eliquis sent to ED for brain MRI finding of bilateral infarcts suspicious for embolic stroke. MRI was done for gradual worsening memory loss over the last 6-12 months. #CVA - likely embolic -Brain MRI 16 December shows foci of acute and subacute infarct in the left temporal and occipital lobes, right frontal lobe, right basal ganglia. Bilateral distribution of the infarcts suspicious for embolic etiology. Also an old right parietal lobe infarct. -confusion, inattention, and mild aphasia, probable right visual field deficit. -Neurology input - add aspirin. -continue Eliquis -CTA head with atherosclerosis but no high grade stenosis. Neck CTA with bilateral carotid artery stenosis - 70-75% -pending TTE -Lipid panel and A1C results noted. -For VFS on wednesday. heart healthy diet. -Neuro checks, PT/OT, Speech # Carotid stenosis, bilateral: -considering age and comorbidities likely not an appropriate candidate for carotid endarterectomy. -to have outpatient carotid ultrasound and vascular surgery consult. #Short-term memory loss: -likely with some vascular dementia. -to have better assessment of baseline function as outpatient considering recent acute [place]. #Paroxysmal atrial fibrillation on eliquis -rate controlled -TTE pending as above -continue eliquis FEN/GI: Heart heathy diet. DVT ppx: ASA, eliquis CODE STATUS: FULL as discussed with pt and son at bedside. DISPO: Med/Tele Other on going medical problems: #Hypertension -hold home telmisartan #hyperlipidemia -cont home pravastatin 20mg #Hypothyroid -cont home levothyroxine Incontinence -cont home darifenacin Subjective unable to get any history. patient denies any concerns. Physical Exam Vital Signs (Past 24 Hours): Last Vital Signs Temp 36.3 C L 12/17/18 11:29 Pulse 92 H 12/17/18 11:29 Resp 18 12/17/18 11:29 BP 170/111 H 12/17/18 11:29 Pulse Ox 92 12/17/18 11:29 Constitutional: WD/WN, vitals as above Respiratory: normal respiratory effort, lungs clear to auscultation Cardiovascular: Rate/Rhythm: regular rate Gastrointestinal (Abdomen): normal bowel sounds, soft, nontender, no hepatosplenomegaly Neurologic: disoriented x 3. no motor deficit. Results & Data Laboratory Results Laboratory Tests 12/17/18 12/17/18 06:32 06:32 WBC 7.72 Hgb 13.7 BUN 19 H Creatinine 0.88 Triglycerides 105 Cholesterol 134 LDL Cholesterol, Calc 76 HDL Cholesterol 37 (1) Cerebrovascular accident, embolic Precerebral and cerebral artery: unspecified cerebral artery Qualified Code(s): I63.40 - Cerebral infarction due to embolism of unspecified cerebral artery
[2018-12-17] MEDS: PRAVASTATIN SOD 20 MG TAB PO SCH (20:51)
[2018-12-18] MEDS: LEVOTHYROXINE SODIUM 75 MCG TABLET PO SCH (06:04)
[2018-12-18 08:31] LABS: Basophils # (auto) 0.05 K/uL (0-0.2); Basophils % (auto) 0.6 %; Eosinophils # (auto) 0.63 K/uL (0-0.5); Eosinophils % (auto) 7.4 %; Hematocrit (blood only) 40.6 % (37-47); Hemoglobin 13.9 g/dL (12.0-16.0); Immature Granulocytes # (auto) 0.02 K/uL (0.00-0.02); Immature Granulocytes % (auto) 0.2 %; Lymphocytes # (auto) 2.87 K/uL (1.2-3.4); Lymphocytes % (auto) 33.7 %; Mean Corpuscular Hgb Conc 34.2 g/dL (32-36); Mean Corpuscular Volume 89.6 fL (80-100); Mean Platelet Volume 9.9 fL (7.4-10.4); Monocytes # (auto) 0.76 K/uL (0.11-0.59); Monocytes % (auto) 8.9 %; Neutrophils # (auto) 4.18 K/uL (1.4-6.5); Neutrophils % (auto) 49.2 %; Platelet Count 213 K/uL (130-400); RDW Coefficient of Variation 15.6 % (11.5-14.5); RDW Standard Deviation 51.3 fL (36.4-46.3); Red Blood Count 4.53 M/uL (4.2-5.4); White Blood Count 8.51 K/uL (4.8-10.8)
[2018-12-18 08:42] LABS: INR 1.1 (0.9-1.1); Prothrombin Time 10.9 Seconds (9.0-12.0)
[2018-12-18 08:48] LABS: BUN Creatinine Ratio 19.4 (10-20); Calcium 9.4 mg/dl (8.5-10.1); Est GFR (African American) 58.3; Est GFR (Non-African American) 50.3; Potassium 3.4 mmol/L (3.5-5.1)
[2018-12-18] MEDS: MULTIVITAMIN TAB PO SCH (09:14)
[2018-12-18] MEDS: ASPIRIN 81 MG ECTAB PO SCH (09:14)
[2018-12-18] MEDS: OMEGA-3 (PURIFIED FISH OIL) 1 GM CAP PO SCH (09:14)
[2018-12-18] MEDS: APIXABAN 2.5 MG TAB PO SCH ×2 (09:14→20:44)
[2018-12-18] MEDS: CALCIUM 600MG + VIT D 400 IU TAB PO SCH (09:14)
--- NOTE | 2018-12-18 14:14 | Family Medicine Progress Note ---
Date of Service December 18, 2018 Assessment & Plan (1) Cerebrovascular accident, embolic: 88F with known PAF on eliquis sent to ED for brain MRI finding of bilateral infarcts suspicious for embolic stroke. MRI was done for gradual worsening memory loss over the last 6-12 months. #CVA - likely embolic -Brain MRI 16 December shows foci of acute and subacute infarct in the left temporal and occipital lobes, right frontal lobe, right basal ganglia. Bilateral distribution of the infarcts suspicious for embolic etiology. Also an old right parietal lobe infarct. -confusion, inattention, and mild aphasia, probable right visual field deficit. -Echo results reviewed - small aortic valve vegetation. Likely contributing to emboli. see below. -continue Eliquis. Reviewed with son - No concern of noncompliance. -Neurology input - add aspirin. -CTA head with atherosclerosis but no high grade stenosis. Neck CTA with bilateral carotid artery stenosis - 70-75% -Lipid panel and A1C results noted. -For VFS on wednesday. heart healthy diet. -Neuro checks, PT/OT, Speech # Aortic valve small vegetation -Noted on echo. Reviewed with Dr. Dutton and Dr. Heard -Check blood culture though less likely infectious. -Will need CT surgery evaluation but likely not a surgical candidate. Discussed tertiary care transfer with son - Cheng. He will review with his brothers and get back # Carotid stenosis, bilateral: -considering age and comorbidities likely not an appropriate candidate for carotid endarterectomy. -to have outpatient carotid ultrasound and vascular surgery consult. #Short-term memory loss: -likely with some vascular dementia. -to have better assessment of baseline function as outpatient considering recent acute [place]. #Paroxysmal atrial fibrillation on eliquis -rate controlled -TTE results noted. -continue eliquis FEN/GI: Heart heathy diet. DVT ppx: ASA, eliquis CODE STATUS: FULL as discussed with pt and son at bedside. DISPO: Med/Tele Other on going medical problems: #Hypertension -hold home telmisartan #hyperlipidemia -cont home pravastatin 20mg #Hypothyroid -cont home levothyroxine Incontinence -cont home darifenacin Subjective unable to get any history. I spoke to sons and updated them yesterday on the test results. no concerns overnight - per nursing. Physical Exam Vital Signs (Past 24 Hours): Last Vital Signs Temp 36.6 C 12/18/18 11:55 Pulse 87 12/18/18 11:55 Resp 18 12/18/18 11:55 BP 171/96 H 12/18/18 11:55 Pulse Ox 93 12/18/18 11:55 Constitutional: WD/WN, vitals as above Respiratory: normal respiratory effort, lungs clear to auscultation Cardiovascular: Rate/Rhythm: regular rate Gastrointestinal (Abdomen): normal bowel sounds, soft, nontender, no hepatosplenomegaly Neurologic: Alert, responsive but disoriented. Motor limb movement intact. Limited speech. (1) Cerebrovascular accident, embolic Precerebral and cerebral artery: unspecified cerebral artery Qualified Co de(s): I63.40 - Cerebral infarction due to embolism of unspecified cerebral artery
[2018-12-18] MEDS: PRAVASTATIN SOD 20 MG TAB PO SCH (20:44)
[2018-12-19] MEDS: LEVOTHYROXINE SODIUM 75 MCG TABLET PO SCH (06:00)
[2018-12-19 06:07] LABS: Basophils # (auto) 0.04 K/uL (0-0.2); Basophils % (auto) 0.5 %; Eosinophils # (auto) 0.51 K/uL (0-0.5); Eosinophils % (auto) 5.8 %; Hematocrit (blood only) 38.5 % (37-47); Immature Granulocytes # (auto) 0.02 K/uL (0.00-0.02); Immature Granulocytes % (auto) 0.2 %; Lymphocytes # (auto) 3.24 K/uL (1.2-3.4); Lymphocytes % (auto) 36.6 %; Mean Corpuscular Hgb Conc 33.8 g/dL (32-36); Monocytes # (auto) 1.01 K/uL (0.11-0.59); Monocytes % (auto) 11.4 %; Neutrophils # (auto) 4.04 K/uL (1.4-6.5); Neutrophils % (auto) 45.5 %; Platelet Count 223 K/uL (130-400); RDW Standard Deviation 52.4 fL (36.4-46.3); Red Blood Count 4.28 M/uL (4.2-5.4); White Blood Count 8.86 K/uL (4.8-10.8)
[2018-12-19 06:26] LABS: BUN Creatinine Ratio 27.8 (10-20); Calcium 9.3 mg/dl (8.5-10.1); Creatinine Clr Calc Pharmacy 32.3 ml/min; Est GFR (African American) 63.6; Est GFR (Non-African American) 54.9; Potassium 3.9 mmol/L (3.5-5.1)
[2018-12-19 06:30] LABS: INR 1.1 (0.9-1.1); Prothrombin Time 11.2 Seconds (9.0-12.0)
[2018-12-19] MEDS: MULTIVITAMIN TAB PO SCH (09:05)
[2018-12-19] MEDS: CALCIUM 600MG + VIT D 400 IU TAB PO SCH (09:05)
[2018-12-19] MEDS: APIXABAN 2.5 MG TAB PO SCH ×2 (09:05→20:47)
[2018-12-19] MEDS: OMEGA-3 (PURIFIED FISH OIL) 1 GM CAP PO SCH (09:05)
[2018-12-19] MEDS: ASPIRIN 81 MG ECTAB PO SCH (09:05)
[2018-12-19] MEDS ORDERED: POLYETHYLENE (MIRALAX) 17 GM PACK PO PRN (09:51)
--- NOTE | 2018-12-19 10:04 | Neurology Progress Note ---
Date of Service December 19, 2018 Assessment & Plan (1) Cerebrovascular accident, embolic: Embolic stroke probably related to atrial fibrillation in spite of taking Eliquis. Embolic stroke related to endocarditis is also possible given the presence of an aortic valve vegetation. Blood cultures have been sent. Dr. Ochoa has also discussed a potential transfer to a tertiary center for further evaluation and management and possible surgical care with the patient's family. It does not look like a decision has been made as of yet, however. Although this patient has a persistent visual field defect to the right related to a recent left occipital infarct, she is otherwise neurologically stable and actually seems a bit improved compared with my last assessment of her on December 17. (2) Carotid stenosis, bilateral: As described previously, this patient has a 70-75% stenosis of the right carotid bifurcation and a 70% stenosis of the left internal carotid artery. The significance of her bilateral carotid stenosis in the context of her recent em bolic appearing strokes is unclear, but probably less likely. I would continue to suggest medical management for this issue which includes continued use of her statin as well as daily low-dose aspirin. Of course she is also on an anticoagulant in light of her history of atrial fibrillation. Additional outpatient monitoring with carotid ultrasound would also be reasonable going forward. Subjective Follow-up for stroke The patient is an 88-year-old female who presented with subacute confusion. She was found to have embolic appearing infarcts within both cerebral hemispheres. She has been confused, and inattentive and had some mild difficulty with speech and a right visual field deficit as well. She is sitting up comfortably in bed and seems to be a bit more alert and interactive this morning. Several of her sons are present at bedside this morning. The patient does not have any specific complaints at this time. She continues to exhibit some difficulty with her right visual field but does not really complain of this issue. She denies headache, weakness, or dizziness. In addition to bilateral carotid stenosis and atrial fibrillation, this patient was also found to have a small vegetation on the aortic valve on her recently completed echocardiogram. I did discuss this issue yesterday afternoon with Dr. Ochoa who had also discussed this issue with Dr. Dutton. Potential transfer to a tertiary care center has been discussed with the patient's family although she may not be a good surgical candidate. Blood cultures have been ordered. The patient continues with Eliquis and daily low-dose aspirin. Constitutional: no fever and no chills Eyes: as per Subjective / HPI Cardiovascular: no chest pain and no palpitations Neurologic: as per Subjective / HPI Physical Exam Vital Signs (Past 24 Hours): Last Vital Signs Temp 36.5 C 12/19/18 07:44 Pulse 99 H 12/19/18 07:44 Resp 16 12/19/18 07:44 BP 154/74 H 12/19/18 07:44 Pulse Ox 94 12/19/18 07:44 Physical Exam: The patient is alert and oriented to person and hospital. She is able to identify her 3 sons at bedside this morning. Attention is normal. She is able to name objects and repeat phrases. She exhibits a normal comprehension of vocabulary. The patient continues to display difficulty with her right visual field with confrontation testing. Visual acuity is otherwise normal. Pupils equal round reactive to light and accommodation. Eye movements normal. Facial sensation intact. There is no facial droop or weakness. Tongue and palate are midline. Shoulder shrug and hearing intact. Sensation intact all modalities in all 4 limbs. She does not display any signs of hemineglect. There is no dysmetria finger to nose or heel to rivera bilaterally. There is no pronator drift. Muscle strength normal for the arms and legs bilaterally. No hemiparesis. No abnormal movements observed. (1) Cerebrovascular accident, embolic Precerebral and cerebral artery: unspecified cerebral artery Qualified Code(s): I63.40 - Cerebral infarction due to embolism of unspecified cerebral artery
--- NOTE | 2018-12-19 11:16 | Family Medicine Progress Note ---
Date of Service December 19, 2018 Assessment & Plan (1) Cerebrovascular accident, embolic: 88F with known PAF on eliquis sent to ED for brain MRI finding of bilateral infarcts suspicious for embolic stroke. MRI was ordered by PCP for h/o gradual worsening memory loss over the last 6-12 months. #CVA - likely embolic -Brain MRI 16 December shows foci of acute and subacute infarct in the left temporal and occipital lobes, right frontal lobe, right basal ganglia. Bilate ral distribution of the infarcts suspicious for embolic etiology. Also an old right parietal lobe infarct. -confusion, inattention, and mild aphasia, probable right visual field deficit. -Echo results reviewed - small <4mm aortic valve vegetation. -continue Eliquis. Reviewed with son - No concern of noncompliance. However, if started on warfarin could ensure compliance (testing) vs may benefit from lovenox. -Neurology input - add aspirin. -CTA head with atherosclerosis but no high grade stenosis. Neck CTA with bilateral carotid artery stenosis - 70-75% -Lipid panel and A1C results noted. -VFS results indicate one episode of aspiration, Speech precautions outlined. -Neuro checks, PT/OT, Speech # Aortic valve small vegetation -Noted on echo. Reviewed with Dr. Dutton and Dr. Heard -Check blood culture though less likely infectious. -Will need CT surgery evaluation but likely not a surgical candidate. Discussed with family, pt to go for rehab. # Carotid stenosis, bilateral: -considering age and comorbidities likely not an appropriate candidate for carotid endarterectomy. -to have outpatient carotid ultrasound and vascular surgery consult. #Short-term memory loss: -likely with some vascular dementia. -to have better assessment of baseline function as outpatient considering recent acute NC. #Paroxysmal atrial fibrillation on eliquis -rate controlled -TTE results noted. -continue eliquis -- if started warfarin could ensure compliance vs may benefit from lovenox. FEN/GI: Heart heathy diet. DVT ppx: ASA, eliquis CODE STATUS: FULL as discussed with pt and son at bedside. DISPO: Med/Tele Other on going medical problems: #Hypertension -hold home telmisartan #hyperlipidemia -cont home pravastatin 20mg #Hypothyroid -cont home levothyroxine Incontinence -cont home darifenacin (2) Dysphasia: (3) Atrial fibrillation: (4) Hypertension: (5) Hyperlipidemia: (6) Short-term memory loss: Supervising Physician Co-Signing Physician Notes I personally examined the patient and verified all beatty points of history and exam, discussed case, and agree with decision making with Dr Liang. No new complaints, updated sons to the best of my ability and answered all of their questions to their satisfaction. Review of systems otherwise negative except for as above Vitals noted, in general she is awake and alert pleasant no distress. HEENT normocephalic atraumatic mucous membranes are moist. Breathing is unlabored no accessory muscle use good effort. Skin shows no rashes no pallor or icterus. Cerebrovascular eventsgiven the MRI pattern it seems that her vegetation causing embolic phenomena is most likely. Continue Eliquis for now, review the literature to ensure optimal anticoagulation. Await further time for blood cul tures, although anticipate no growth. Review of medical literature it appears that without hemodynamic instability or recurrent clotting that surgery would not be indicated, separate from the fact that with her age and frailty she would be a very concerning surgical candidate as far as her ability to recover. Hopefully work towards rehab placement, with a goal of back home with family support, discussed the potential of family 24-hour supervision, but they noted this is not at all feasible. Otherwise as above Subjective Seen and examined at bedside. Sons Meño, Kenyon and Cheng are at bedside as well. Pt doing clinically well over the weekend, tolerating PO. Discussed case with neurology, cardiology. Pt not likely to be a surgical candidate for valvular surgery. Review of Systems Unobtainable due to cognitive status (limited due to pt's inattention, but generally does not endorse complaints.) Physical Exam Vital Signs (Past 24 Hours): Last Vital Signs Temp 36.5 C 12/19/18 07:44 Pulse 99 H 12/19/18 07:44 Resp 16 12/19/18 07:44 BP 154/74 H 12/19/18 07:44 Pulse Ox 94 12/19/18 07:44 Physical Exam: Vitals noted as above and within normal limits with the exception of mild hypertension. GENERAL: Awake, answers questions appropriately, nontoxic-appearing, in no distress. Distractible. HENT: Normocephalic, atraumatic. Mucus membranes appear normal. EYES: Sclera non-icteric. EOMI. Conjunctival vertical pigmentation noted bilaterally. NECK: Supple. Full range of motion. RESPIRATORY: Clear to auscultation. Normal work of breathing. CARDIAC: Irreg/irreg. Extremities warm and well perfused. ABDOMEN: Soft, non-distended. No tenderness to palpation in all four quadrants. No rebound or guarding. No masses. Bowel sounds are normal. LOWER EXTREMITIES: Inspection of calves reveal equal size bilaterally. They are non-tender. No edema. No discoloration. NEURO: No focal motor deficits noted. Speech in tact. EOMI. Sensation in tact. CN II-XII in tact. SKIN: Rash not present. No jaundice noted. Significant lesions not present. PSYCH: Appropriate mood, and flat affect. Cooperative. Exam as done by Chayo Liang MD, Produce Department Supervisor. Results & Data Laboratory Results 12/19/18 12/19/18 12/19/18 Range/Units 05:37 05:37 05:37 WBC 8.86 (4.8-10.8) K/uL RBC 4.28 (4.2-5.4) M/uL Hgb 13.0 (12.0-16.0) g/dL Hct 38.5 (37-47) % MCV 90.0 (80-100) fL MCH 30.4 (25-34) pg MCHC 33.8 (32-36) g/dL RDW Std Deviation 52.4 H (36.4-46.3) fL RDW Coeff of Nicole 16.0 H (11.5-14.5) % Plt Count 223 (130-400) K/uL MPV 10.0 (7.4-10.4) fL Immature Gran % (Auto) 0.2 % Neut % (Auto) 45.5 % Lymph % (Auto) 36.6 % [place] % (Auto) 11.4 % Eos % (Auto) 5.8 % Baso % (Auto) 0.5 % Immature Gran # (Auto) 0.02 (0.00-0.02) K/uL Neut # (Auto) 4.04 (1.4-6.5) K/uL Lymph # (Auto) 3.24 (1.2-3.4) K/uL [place] # (Auto) 1.01 H (0.11-0.59) K/uL Eos # (Auto) 0.51 H (0-0.5) K/uL Baso # (Auto) 0.04 (0-0.2) K/uL PT 11.2 (9.0-12.0) Seconds INR 1.1 (0.9-1.1) Sodium 143 (136-145) mmol/L Potassium 3.9 (3.5-5.1) mmol/L Chloride 110 H (98-107) mmol/L Carbon Dioxide 23 (21-32) mmol/L Anion Gap 10.0 (3-11) BUN 26 H (7-18) mg/dl Creatinine 0.93 (0.6-1.2) mg/dl Est Cr Clr Drug Dosing 32.3 ml/min Est GFR ( Amer) 63.6 Est GFR (Non-Af Amer) 54.9 BUN/Creatinine Ratio 27.8 H (10-20) Glucose 95 (70-99) mg/dl Calcium 9.3 (8.5-10.1) mg/dl Medications Administered Current Inpatient Medications Apixaban (Eliquis) 2.5 mg PO BID [facility] Stop: 01/15/19 20:59 Last Admin: 12/19/18 20:47 Dose: 2.5 mg Documented by: Aspirin (Ecotrin Ectab) 81 mg PO QAM [facility] Stop: 01/16/19 08:59 Last Admin: 12/19/18 09:05 Dose: 81 mg Documented by: Dorzolamide/Timolol (Cosopt) 1 drops OPB BID [facility] Stop: 01/18/19 20:59 Last Admin: 12/19/18 20:47 Dose: 1 drops Documented by: Fish Oil ([place]-3 (Purified Fish Oil)) 1 gm PO DAILY [facility] Stop: 01/16/19 08:59 Last Admin: 12/19/18 09:05 Dose: 1 gm Documented by: Ioversol (Optiray 320 125ml) 115 ml IV ONCE PRN PRN Reason: Interaction Checking Stop: 12/20/18 20:18 Last Admin: 12/16/18 20:20 Dose: 1 ml Documented by: Latanoprost (Xalatan Oph) 1 drops OPB HS [facility] Stop: 01/18/19 20:59 Last Admin: 12/19/18 20:49 Dose: 1 drops Documented by: Levothyroxine Sodium (Synthroid) 75 mcg PO DAILYBB [facility] Stop: 01/16/19 06:29 Last Admin: 12/19/18 06:00 Dose: 75 mcg Documented by: Miscellaneous (Order Awaiting Action) 1 ea N/A QS [facility] Stop: 01/16/19 00:00 Last Admin: 12/19/18 15:18 Dose: Not Given Documented by: Miscellaneous Information (Pharmacist Discharge Med Rec Consult) 1 ea N/A UD PRN PRN Reason: Consult Stop: 01/15/19 19:25 Multivitamins (Multivitamin Tab) 1 tab PO DAILY [facility] Stop: 01/16/19 08:59 Last Admin: 12/19/18 09:05 Dose: 1 tab Documented by: Multivitamins/Minerals (Caltrate Plus) 1 tab PO DAILY [facility] Stop: 01/16/19 08:59 Last Admin: 12/19/18 09:05 Dose: 1 tab Documented by: Polyethylene Glycol (Miralax Powder Packet) 17 gm PO DAILY PRN PRN Reason: Constipation Stop: 01/18/19 09:50 Pravastatin Sodium (Pravachol) 20 mg PO HS [facility] Stop: 01/15/19 20:59 Last Admin: 12/19/18 20:47 Dose: 20 mg Documented by: Resident Activity Tracking Resident Involvement: Resident Care Provided Care Provided: Adult Hospital Medicine (1) Cerebrovascular accident, embolic Precerebral and cerebral artery: unspecified cerebral artery Qualified C ode(s): I63.40 - Cerebral infarction due to embolism of unspecified cerebral artery
--- NOTE | 2018-12-19 13:14 | Fluoroscopy Report ---
FL video swallow HISTORY: Stroke. r/o aspiration TECHNIQUE: Video fluoroscopic evaluation of swallowing was performed in the AP and lateral projection s by the speech pathology staff. The patient is fed nectar-thick and thin liquid barium, a barium coa vidhya wafer, and barium pudding. FLUOROSCOPY TIME: 2.1 minutes. A cine loop was submitted.. COMPARISON STUDY: None. FINDINGS: There is normal hyoid excursion and epiglottic deflection. There is a single episode of pre mature spillover with the nectar thick liquid resulting in aspiration and a cough. Otherwise, swallow ing function is within normal limits and no additional episodes of aspiration identified. IMPRESSION: 1. A single episode of aspiration seen during the examination. 2. Please see the speech pathologist report for detailed findings and recommendations. Electronically signed by: Romaine Harrington M.D. 12/19/2018 1:12 PM
[2018-12-19] MEDS: PRAVASTATIN SOD 20 MG TAB PO SCH (20:47)
[2018-12-19] MEDS: DORZOLAMIDE/TIMOLOL 22.3/6.8MG/ML 10 ML BTL OPB SCH (20:47)
[2018-12-19] MEDS: LATANOPROST 0.005% OP SOLN 2.5 ML BTL OPB SCH (20:49)
[2018-12-20] MEDS: LEVOTHYROXINE SODIUM 75 MCG TABLET PO SCH (05:50)
[2018-12-20] MEDS: CALCIUM 600MG + VIT D 400 IU TAB PO SCH (08:58)
[2018-12-20] MEDS: OMEGA-3 (PURIFIED FISH OIL) 1 GM CAP PO SCH (08:58)
[2018-12-20] MEDS: APIXABAN 2.5 MG TAB PO SCH ×2 (08:58→20:59)
[2018-12-20] MEDS: ASPIRIN 81 MG ECTAB PO SCH (08:58)
[2018-12-20] MEDS: MULTIVITAMIN TAB PO SCH (08:58)
[2018-12-20] MEDS: DORZOLAMIDE/TIMOLOL 22.3/6.8MG/ML 10 ML BTL OPB SCH ×2 (08:59→21:00)
--- NOTE | 2018-12-20 17:39 | Family Medicine Progress Note ---
Date of Service December 20, 2018 Assessment & Plan (1) Cerebrovascular accident, embolic: 88F with known PAF on eliquis sent to ED for brain MRI finding of bilateral infarcts suspicious for embolic stroke. MRI was ordered by PCP for h/o gradual worsening memory loss over the last 6-12 months. #CVA - likely embolic -Brain MRI 16 December shows foci of acute and subacute infarct in the left temporal and occipital lobes, right frontal lobe, right basal ganglia. Bilat eral distribution of the infarcts suspicious for embolic etiology. Also an old right parietal lobe infarct. -CTA head with atherosclerosis but no high grade stenosis. Neck CTA with bilateral carotid artery stenosis - 70-75% -Deficits include: confusion, inattention, and mild aphasia, probable right visual field deficit. No focal motor deficits thankfully. -Echo results reviewed - small <4mm aortic valve vegetation, likely nonbacterial, likely clot. Blood cultures NGTD. Hemodynamically stable. Discussed with CT surgery -- pt is not a candidate for surgical intervention. -continue Eliquis. There is not enough compelling evidence that other agent (LMWH, warfarin, or other NOAC) would be superior. Pt is allergic to xarelto as well. Discussed with cardiology, continue eliquis. -Neurology input - add aspirin. For PT/OT/Speech rehab. -Lipid panel and A1C results noted and within range. -VFS results indicate one episode of aspiration, Speech precautions outlined. #Aortic valve small vegetation -Noted on echo. Likely noninfective. As above. #Carotid stenosis, bilateral: -considering age and comorbidities likely not an appropriate candidate for carotid endarterectomy. -to have outpatient carotid ultrasound and vascular surgery consult. #Short-term memory loss: -likely with some vascular dementia. -rehab as above, although guarded prognosis given embolic nature of her stroke. #Paroxysmal atrial fibrillation on eliquis -rate controlled -TTE results noted as above. -continue eliquis. -cont antihypertensive as below. #Mild-moderate wilbert-pharyngeal dysphagia -Aspiratation precautions. -Thin liquids. Stringent oral care. Continue TRAVEL INFORMATION CENTER SUPERVISOR services on discharge. FEN/GI: Heart heathy diet. DVT ppx: ASA, eliquis CODE STATUS: FULL as discussed with pt and son at bedside. DISPO: Rehab. Other on going medical problems: #Hypertension -reshme home telmisartan #hyperlipidemia -cont home pravastatin 20mg #Hypothyroid -cont home levothyroxine Incontinence -cont home darifenacin (2) Dysphasia: (3) Atrial fibrillation: (4) Hypertension: (5) Hyperlipidemia: (6) Short-term memory loss: Supervising Physician Co-Signing Physician Notes I personally examined the patient and verified all beatty points of history and exam, discussed case, and agree with decision making with Dr Liang. No new complaints, yet again updated sons to the best of my ability and answered all of their questions to their satisfaction. Acute rehab would be the primary plan, SNF with a rehab emphasis being the secondary plan. Review of systems otherwise negative except for as above Vitals noted, in general she is awake and alert pleasant no distress. HEENT normocephalic atraumatic mucous membranes are moist. Breathing is unlabored no accessory muscle use good effort. Skin shows no rashes no pallor or icterus. Cerebrovascular eventsgiven the MRI pattern it seems that her vegetation causing embolic phenomena is most likely. Continue Eliquis for now, after discussions with specialists as well as review of the literature there does not appear to be a compelling reason for one blood thinner over another, the patient herself has had some difficulties with other blood thinners in the past, appears to be tolerating the Eliquis well, and compliance at home may have been questionable. Her carotid certainly could have been culprit, but given the bila teral strokes both stenoses would have had to cause embolic phenomena in short order almost able to likely than embolism from a central source. Hopefully will be able to get her to rehab soon, we are waiting for approvals. Otherwise as above Otherwise as above Subjective Pt seen and examined at bedside this AM. Sitting up in bed unassisted, eating breakfast. Does not endorse any complaints. Later, seen at bedside with claudette Anand and Kenyon -- discussed plans for rehab moving forward, recommendations. Review of Systems Unobtainable due to cognitive status Physical Exam Vital Signs (Past 24 Hours): Last Vital Signs Temp 36.6 C 12/20/18 15:14 Pulse 87 12/20/18 16:00 Resp 16 12/20/18 15:14 BP 112/72 12/20/18 15:14 Pulse Ox 95 12/20/18 15:14 Physical Exam: Vitals noted as above and within normal limits with the exception of mild hypertension. GENERAL: Awake, answers questions appropriately, nontoxic-appearing, in no distress. Distractible. HENT: Normocephalic, atraumatic. Mucus membranes appear normal. EYES: Sclera non-icteric. EOMI. Conjunctival vertical pigmentation noted bilaterally. NECK: Supple. Full range of motion. RESPIRATORY: Clear to auscultation. Normal work of breathing. CARDIAC: Irreg/irreg. Extremities warm and well perfused. ABDOMEN: Soft, non-distended. No tenderness to palpation in all four quadrants. No rebound or guarding. No masses. Bowel sounds are normal. LOWER EXTREMITIES: Inspection of calves reveal equal size bilaterally. They are non-tender. No edema. No discoloration. NEURO: No focal motor deficits noted. Speech in tact. EOMI. Sensation in tact. CN II-XII in tact. SKIN: Rash not present. No jaundice noted. Significant lesions not present. PSYCH: Appropriate mood, and flat affect. Cooperative. Exam as done by Chayo Liang MD, Fleshing Machine Operator. Results & Data Medications Administered Current Inpatient Medications Apixaban (Eliquis) 2.5 mg PO BID [facility] Stop: 01/15/19 20:59 Last Admin: 12/20/18 20:59 Dose: 2.5 mg Documented by: Aspirin (Ecotrin Ectab) 81 mg PO QAM [facility] Stop: 01/16/19 08:59 Last Admin: 12/20/18 08:58 Dose: 81 mg Documented by: Dorzolamide/Timolol (Cosopt) 1 drops OPB BID [facility] Stop: 01/18/19 20:59 Last Admin: 12/20/18 21:00 Dose: 1 drops Documented by: Fish Oil ([place]-3 (Purified Fish Oil)) 1 gm PO DAILY [facility] Stop: 01/16/19 08:59 Last Admin: 12/20/18 08:58 Dose: 1 gm Documented by: Latanoprost (Xalatan Oph) 1 drops OPB HS [facility] Stop: 01/18/19 20:59 Last Admin: 12/20/18 21:00 Dose: 1 drops Documented by: Levothyroxine Sodium (Synthroid) 75 mcg PO DAILYBB [facility] Stop: 01/16/19 06:29 Last Admin: 12/20/18 05:50 Dose: 75 mcg Documented by: Miscellaneous (Order Awaiting Action) 1 ea N/A QS [facility] Stop: 01/16/19 00:00 Last Admin: 12/20/18 15:01 Dose: Not Given Documented by: Miscellaneous Information (Pharmacist Discharge Med Rec Consult) 1 ea N/A UD PRN PRN Reason: Consult Stop: 01/15/19 19:25 Multivitamins (Multivitamin Tab) 1 tab PO DAILY [facility] Stop: 01/16/19 08:59 Last Admin: 12/20/18 08:58 Dose: 1 tab Documented by: Multivitamins/Minerals (Caltrate Plus) 1 tab PO DAILY [facility] Stop: 01/16/19 08:59 Last Admin: 12/20/18 08:58 Dose: 1 tab Documented by: Polyethylene Glycol (Miralax Powder Packet) 17 gm PO DAILY PRN PRN Reason: Constipation Stop: 01/18/19 09:50 Last Admin: 12/20/18 09:17 Dose: 17 gm Documented by: Pravastatin Sodium (Pravachol) 20 mg PO [facility] Stop: 01/15/19 20:59 Last Admin: 12/20/18 20:59 Dose: 20 mg Documented by: Resident Activity Tracking Resident Involvement: Resident Care Provided Care Provided: Adult Hospital Medicine (1) Cerebrovascular accident, embolic Precerebral and cerebral artery: unspecified cerebral artery Qualified Code(s): I63.40 - Cerebral infarction due to embolism of unspecified cerebral artery
[2018-12-20] MEDS: PRAVASTATIN SOD 20 MG TAB PO SCH (20:59)
[2018-12-20] MEDS: LATANOPROST 0.005% OP SOLN 2.5 ML BTL OPB SCH (21:00)
[2018-12-20] MEDS: TELMISARTAN 40 MG TAB PO SCH (22:47)
[2018-12-21] MEDS: LEVOTHYROXINE SODIUM 75 MCG TABLET PO SCH (05:46)
[2018-12-21] MEDS: APIXABAN 2.5 MG TAB PO SCH (08:14)
[2018-12-21] MEDS: MULTIVITAMIN TAB PO SCH (08:14)
[2018-12-21] MEDS: OMEGA-3 (PURIFIED FISH OIL) 1 GM CAP PO SCH (08:14)
[2018-12-21] MEDS: ASPIRIN 81 MG ECTAB PO SCH (08:15)
[2018-12-21] MEDS: DORZOLAMIDE/TIMOLOL 22.3/6.8MG/ML 10 ML BTL OPB SCH (08:15)
[2018-12-21] MEDS: CALCIUM 600MG + VIT D 400 IU TAB PO SCH (08:15)
[2018-12-21] MEDS: TELMISARTAN 40 MG TAB PO SCH (08:17)
[2018-12-21] MEDS ORDERED: STROKE PATIENT DISCHARGE STA (10:57)
--- NOTE | 2018-12-21 11:02 | Discharge Summary ---
Date of Service December 21, 2018 Admission HPI Per Admitting Provider Patient presented to her PCP on December 07 with complaint of short-term memory loss, a brain MRI was ordered. There was also concern for aspiration risk due to observed choking when swallowing. Her atrial fibrillation was rate controlled at that time. She was alert and answered questions appropriately at that time however was not able to draw clock or say who the president of the country was which was new for her as of 1 year prior. Subsequent to an abnormal brain MRI today suspicious for embolic stroke, hospitalist service is consulted for admission/further evaluation. She is accompanied by her son today. PMH -Atrial fibrillation -Echo in 2014 normal LVH, EF 65%. Severe mitral annular calcification, moderate TR, mild LVH. SH Uses meals on wheels for 1 meal, she has an aide who comes every evening for 3 hours. Her son is her caregiver. Has a history of falls at home. Needs help with self hygiene. Principal Diagnosis Stroke Discharge Exam Constitutional well developed and well nourished; no acute distress Eyes PERRL, conjunctivae normal, anicteric sclerae mild abnormal pigment of eye, otherwise normal ENMT external ear and nose normal, oropharynx normal Neck trachea midline, no thyromegaly Respiratory normal respiratory effort, lungs clear to auscultation Cardiovascular irregular R/R, no murmurs Gastrointestinal (Abdomen) normal bowel sounds, soft, nontender, no hepatosplenomegaly Musculoskeletal no cyanosis or clubbing, extremities motor strength 5/5 Skin no rashes, warm and dry Neurologic cranial nerves 2-12 intact and without any focal deficits Discharge Data Allergies Allergy/AdvReac Type Severity Reaction Status Date / Time No Known Allergies Allergy Unverified 02/01/15 22:20 Consultations 12/16/18 13:19 ED Decision to Admit Stat 12/16/18 19:26 Consult Case Management - Discharge Planning Routine Consult Neurology Routine Ordered Studies 12/16/18 19:26 CT angio head w con Routine CT angio neck with con Routine 12/19/18 11:45 FL video swallow Routine Hospital Course (1) CVA (cerebral vascular accident): (1) Cerebrovascular accident, embolic: 88F with known PAF on eliquis sent to ED for brain MRI finding of bilateral infarcts suspicious for embolic stroke. MRI was ordered by PCP for h/o gradual worsening memory loss over the last 6-12 months. #CVA - likely embolic -Brain MRI 16 December shows foci of acute and subacute infarct in the left temporal and occipital lobes, right frontal lobe, right basal ganglia. Bilateral distribution of the infarcts suspicious for embolic etiology. Also an old right parietal lobe infarct. -CTA head with atherosclerosis but no high grade stenosis. Neck CTA with bilateral carotid artery stenosis - 70-75% -Deficits include: confusion, inattention, and mild aphasia, probable right visual field deficit. No focal motor deficits thankfully. -Echo results reviewed - small <4mm aortic valve vegetation, likely nonbacterial, likely clot. Blood cultures NGTD. Hemodynamically stable. Discussed with CT surgery -- pt is not a candidate for surgical intervention. -continue Eliquis. There is not enough compelling evidence that other agent (LMWH, warfarin, or other NOAC) would be superior. Pt is allergic to xarelto as well. Discussed with cardiology, continue eliquis. -Neurology input - add aspirin. For PT/OT/Speech rehab. -Lipid panel and A1C results noted and within range. -VFS results indicate one episode of aspiration, Speech precautions outlined. #Aortic valve small vegetation -Noted on echo. Likely noninfective. As above. #Carotid stenosis, bilateral: -considering age and comorbidities likely not an appropriate candidate for carotid endarterectomy. -to have outpatient carotid ultrasound and vascular surgery consult. #Short-term memory loss: -likely with some vascular dementia. -rehab as above, although guarded prognosis given embolic nature of her stroke. #Paroxysmal atrial fibrillation on eliquis -rate controlled -TTE results noted as above. -continue eliquis. -cont antihypertensive as below. #Mild-moderate wilbert-pharyngeal dysphagia -Aspiratation precautions. -Thin liquids. Stringent oral care. Continue ENTRY MANAGER services on discharge. FEN/GI: Heart heathy diet. DVT ppx: ASA, eliquis CODE STATUS: FULL as discussed with pt and son at bedside. DISPO: Rehab. Other on going medical problems: #Hypertension -resume home telmisartan #hyperlipidemia -cont home pravastatin 20mg #Hypothyroid -cont home levothyroxine Incontinence -cont home darifenacin Total Time Total Time Spent Total Time Spent (In Minutes): <30 Discharge Plan Discharge Items Patient Disposition: [facility] Reason For Visit: CVA Discharge Diagnosis: CVA Condition: Fair Discharge Goals: Decrease discomfort, Diagnostic testing, Improve disease control, Improve function, Increase independence and Improve nutritional status Activity: Per 'Additional Instructions' section Non-emergency contact: Primary Care Provider, Plate Former and Neurologist Call non-emergency contact if: you have any medication questions Follow-up/Referrals: Charles Blanchard [Primary Care Provider] - Diet: Heart Healthy Addtl Provider Instructions: 88F with known PAF on eliquis sent to ED for brain MRI finding of bilateral infarcts suspicious for embolic stroke. MRI was ordered by PCP for h/o gradual worsening memory loss over the last 6-12 months. #CVA - likely embolic -Brain MRI 16 December shows foci of acute and subacute infarct in the left temporal and occipital lobes, right frontal lobe, right basal ganglia. Bilateral distribution of the infarcts suspicious for embolic etiology. Also an old right parietal lobe infarct. -CTA head with atherosclerosis but no high grade stenosis. Neck CTA with bilateral carotid artery stenosis - 70-75% -Deficits include: confusion, inattention, and mild aphasia, probable right visual field deficit. No focal motor deficits thankfully. -Echo results reviewed - small <4mm aortic valve vegetation, likely nonbacterial, likely clot. Blood cultures NGTD. Hemodynamically stable. Discussed with CT surgery -- pt is not a candidate for surgical intervention. -continue Eliquis. There is not enough compelling evidence that other agent (LMWH, warfarin, or other NOAC) would be superior. Pt is allergic to xarelto as well. Discussed with cardiology, continue eliquis. -Neurology input - add aspirin. For PT/OT/Speech rehab. -Lipid panel and A1C results noted and within range. -VFS results indicate one episode of aspiration, Speech precautions outlined. #Aortic valve small vegetation -Noted on echo. Likely noninfective. As above. #Carotid stenosis, bilateral: -considering age and comorbidities likely not an appropriate candidate for carotid endarterectomy. -to have outpatient carotid ultrasound and vascular surgery consult. #Short-term memory loss: -likely with some vascular dementia. -rehab as above, although guarded prognosis given embolic nature of her stroke. #Paroxysmal atrial fibrillation on eliquis -rate controlled -TTE results noted as above. -continue eliquis. -cont antihypertensive as below. #Mild-moderate wilbert-pharyngeal dysphagia -Aspiratation precautions. -Thin liquids. Stringent oral care. Continue ENTRY MANAGER services on discharge. FEN/GI: Heart heathy diet. DVT ppx: ASA, eliquis CODE STATUS: FULL as discussed with pt and son at bedside. DISPO: Rehab. Other on going medical problems: #Hypertension -reshme home telmisartan #hyperlipidemia -cont home pravastatin 20mg #Hypothyroid -cont home levothyroxine Incontinence -cont home darifenacin Prescriptions: New aspirin [Ecotrin Low Strength] 81 mg Tablet,Delayed Release (Dr/Ec) 81 mg PO QAM Qty: 30 RF: 0 latanoprost 0.005 % Drops 1 drp OPB HS Qty: 15 RF: 0 dorzolamide-timolol 22.3-6.8 mg/mL Drops 1 drp OPB BID Qty: 15 RF: 0 Continued multivitamin Tablet 1 tab PO DAILY RF: 0 omega-3 fatty acids 1,000 mg Capsule 1,000 mg PO DAILY RF: 0 levothyroxine 75 mcg Tablet 75 mcg PO DAILY RF: 0 telmisartan 80 mg Tablet 80 mg PO BID RF: 0 pravastatin 20 mg Tablet 20 mg PO HS RF: 0 darifenacin 7.5 mg Tablet Extended Release 24 Hr 7.5 mg PO DAILY RF: 0 calcium carbonate-vitamin D3 [Os-Nixon 500 + D3] 500 mg(1,250mg) -200 unit Tablet 1 tab PO DAILY RF: 0 Eliquis 2.5 mg Tablet 2.5 mg PO BID RF: 0 Stand-Alone Forms: [facility] Discharge Orders: Discharge Order (Routine); Ordered 12/21/18 Ordered By: Prem Amor Skilled Items Patient informed of condition?: Yes DNR: No Discharge Level of Care: Acute rehab Communicable Disease: No Discharge Prognosis: Stable Admission Data Admit Date/Time: 12/16/18 17:58 Attending Provider: Luis Scales Admit Provider: Chayo Liang Primary Care Provider: Charles Blanchard Other Providers: Rosalva Ochoa ; Km Hairston ; Van Heard Service: Telemetry Medical Other Pending Studies at Discharge: No Supervising Physician Co-Signing Physician Notes I personally examined the patient and verified all beatty points of history and exam, discussed case, and agree with decision making with Dr Amor. no new complaints. approved for rehab. Vitals noted, in general she is awake and alert pleasant no distress. HEENT normocephalic atraumatic mucous membranes are moist. Breathing is unlabored no accessory muscle use good effort. Skin shows no rashes no pallor or icterus. 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 Continue Eliquis for now, after discussions with specialists as well as review of the literature there does not appear to be a compelling reason for one blood thinner over another, the patient herself has had some difficulties with other blood thinners in the past, appears to be tolerating the Eliquis well, and compliance at home may have been questionable. Her carotid certainly could have been culprit, but given the bilateral strokes both stenoses would have had to cause embolic phenomena in short order almost able to likely than embolism from a central source. stable for rehab. ongoing outpt management. 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
--- OUTSIDE RECORDS SUMMARY | 2019-01-02 14:04 | External Medical Summary | Continuity of Care Document ---
:1930 Author Name Pili Chen, Provider Address Unavailable Unavailable , Care Team Providers Name Role Phone Orquidea Chen, Van Perdomo Unavailable [email or web address] [email or web address], UNKNOWN Unavailable Unavailable Problems Active medical history not documented Allergies and Adverse Reactions Allergy history not documented Medications Medications not documented Procedures Procedures not documented Immunizations Immunizations not documented Plan of Treatment Planned Observations Planned Goals not documented Results No Known Results Results not documented
== END 2018-12-21 15:50 | DRG 65 ==
LOC: ED 11:59 → 2N 17:58 → SUATTDRO 17:58 → 2N 18:39

== ENCOUNTER 2019-02-11 15:53 | Inpatient (IN) ==
--- NOTE | 2019-02-11 16:24 | XRay Report ---
XR chest 1V portable CLINICAL HISTORY: 88 years-old Female presenting with weakness. TECHNIQUE: Portable upright AP view of the chest was obtained. COMPARISON: None. FINDINGS: Atherosclerosis of the aortic arch. Cardiac silhouette enlarged. Mitral annular calcification suggest ed. Coarsened lung markings. Vague reticulonodular opacities diffusely. Trace bilateral pleural effus ions. No pneumothorax. Degenerative changes of the thoracic spine. Upper abdomen normal. IMPRESSION: 1. Cardiomegaly. 2. Possible underlying chronic lung disease. Superimposed vague reticulonodular infiltrates not excl uded. Consider PA and lateral views for better assessment. Electronically signed by: Kenyon Brannon M.D. 02/11/2019 4:22 PM
[2019-02-11 16:38] LABS: Hematocrit (blood only) 36.3 % (37-47); Hemoglobin 12.1 g/dL (12.0-16.0); Mean Corpuscular Hgb Conc 33.3 g/dL (32-36); Mean Corpuscular Volume 91.9 fL (80-100); Mean Platelet Volume 9.4 fL (7.4-10.4); Platelet Count 304 K/uL (130-400); RDW Coefficient of Variation 14.9 % (11.5-14.5); RDW Standard Deviation 49.7 fL (36.4-46.3); Red Blood Count 3.95 M/uL (4.2-5.4); White Blood Count 12.04 K/uL (4.8-10.8)
[2019-02-11 17:00] LABS: Albumin Level 3.2 gm/dl (3.4-5.0); BUN Creatinine Ratio 17.5 (10-20); Calcium 9.6 mg/dl (8.5-10.1); Creatinine Clr Calc Pharmacy 34.2 ml/min; Est GFR (African American) 57.6; Est GFR (Non-African American) 49.7; Potassium 3.6 mmol/L (3.5-5.1)
[2019-02-11] MEDS ORDERED: PIPERACILL/TAZOBAC CONSULT ACTIVE PRN ×2 (17:02→22:08)
[2019-02-11] MEDS ORDERED: PIPERACILLIN/TAZOBACTAM 4.5 GM/120 ML BAG IV ONE (17:02)
[2019-02-11 17:05] LABS: Basophils # (auto) 0.07 K/uL (0-0.2); Basophils % (auto) 0.6 %; Eosinophils # (auto) 0.13 K/uL (0-0.5); Eosinophils % (auto) 1.1 %; Immature Granulocytes # (auto) 0.07 K/uL (0.00-0.02); Immature Granulocytes % (auto) 0.6 %; Lymphocytes # (auto) 2.81 K/uL (1.2-3.4); Lymphocytes % (auto) 23.3 %; Monocytes # (auto) 0.81 K/uL (0.11-0.59); Monocytes % (auto) 6.7 %; Neutrophils # (auto) 8.15 K/uL (1.4-6.5); Neutrophils % (auto) 67.7 %
[2019-02-11 17:09] LABS: Appearance Urine Clear (Clear); Bacteria Urine Automated 1+ (Negative); Bilirubin Urine Negative (Negative); Blood Urine Negative (Negative); Color Urine Yellow; Epithelial Cell Urine Auto >30 /lpf (0-5); Glucose Urine UA Negative (Negative); Ketones Urine Negative (Negative); Leukocyte Esterase Urine Trace (Negative); Nitrite Urine Negative (Negative); RBC Urine Automated 0-4 /hpf (0-4); Specific Gravity Urine 1.016 (1.000-1.030); Urobilinogen Urine Negative (Negative); pH Urine 7.5 (4.5-7.5)
[2019-02-11 17:11] LABS: Albumin Globulin Ratio 0.7 (0.9-2); Bilirubin,Total 1.2 mg/dl (0.2-1); Globulin 4.6 gm/dl (2.5-4.0); Total Protein 7.8 gm/dl (6.4-8.2); Troponin I 0.022 ng/ml (0-0.045)
[2019-02-11] MEDS ORDERED: SODIUM CHLORIDE 0.9% 1000ML 1,000 ML IV STA (17:14)
[2019-02-11 17:32] LABS: Protein Urine 2+ (Negative)
--- NOTE | 2019-02-11 17:41 | CT Scan Report ---
CT head/brain wo con CLINICAL HISTORY: 88 years-old Female presenting with AMS, confusion. TECHNIQUE: Multidetector CT imaging of the head was performed without the use of intravenous contrast . IV contrast: None. One or more dose lowering techniques were used consistent with the principles of ALARA (as low as reasonably achievable), including automatic exposure control, mA or kV adjustment t o individual patient size, and/or use of iterative reconstruction. COMPARISON: 08/31/2016. CT DOSE (mGy.cm): The estimated cumulative dose is 1034.04 mGycm. FINDINGS: Folder Gluer Operator topogram: Unremarkable. Proportional ventricular and sulcal prominence, likely age-related parenchymal volume loss. No hemorr hannah. Periventricular and subcortical white matter hypoattenuation, nonspecific but likely indicative of chronic small vessel ischemic change. Few lacunar infarct suggested in the right basal ganglia, u nchanged from prior. Old limited cortical infarct in the right parieto-occipital region. No acute ter ritorial infarct. No mass effect or midline shift. No extra-axial fluid collection. Paranasal sinuses and mastoid air cells clear. Calvarium intact. IMPRESSION: 1. Chronic small vessel ischemic change. 2. Old right basilar lacunar infarcts and limited cortical infarct in the right parieto-occipital re gion. These are unchanged from prior. 3. No acute intracranial abnormality. Electronically signed by: Kenyon Brannon M.D. 02/11/2019 5:40 PM
[2019-02-11 17:48] LABS: Renal Epithelial Cells Urine 0-5 /lpf (0-5)
[2019-02-11] MEDS ORDERED: NITROGLYCERIN 2% OINTMENT 30GM TUBE EXT STA (18:23)
[2019-02-11] MEDS ORDERED: VANCOMYCIN CONSULT ACTIVE PRN (20:03)
[2019-02-11] MEDS ORDERED: VANCOMYCIN HCL 1,250 MG in SODIUM CHLORIDE 0.9% 500 ML IV ONE (20:03)
[2019-02-11] MEDS ORDERED: BISACODYL 10 MG SUPP PR PRN (20:21)
[2019-02-11] MEDS ORDERED: MAGNESIUM HYDROXIDE SUSP 30 ML UDC PO PRN ×2 (20:21→22:08)
[2019-02-11] MEDS ORDERED: SOD PHOSPHATE/SOD BIPHOSPHATE ENEMA 132 ML BTL PR PRN (20:21)
--- NOTE | 2019-02-11 20:59 | History & Physical Report ---
Date of Service February 11, 2019 Assessment & Plan (1) Altered mental status: Pleasant 88 yo F PMH afib, HTN, HLD, CVA with residual aspiration, short term memory loss, admitted with altered mental status, ?pneumonia vs UTI. AMS/Pna/UTI -More likely from aspiration pna than UTI -Start azithro and zosyn -Procal in AM -Will repeat CXR as ap/lat in AM -Urine cx pending, UA appears dirty -SPL consult for aspiration; thin liquids HTN -Cont home meds -Pt historically very elevated -?hypertensive urgency leading to flash pulm edema Heart disease -Continue home meds, asa -Will check BNP in AM -No known h/o CHF, some peripheral edema -Echo in December 2018 showed EF 55-60, elevated R-sided pressures Afib -On eliquis and asa -Cont metoprolol Dysphagia -SPL consulted, thin liquids CVA with carotid stenosis -not a surgical candidate for CEA -Cont home meds HLD -cont home meds Hypothyroid -Cont home meds Urine incontinence -Cont home meds Mildly Elevated LFTs -Monitor, repeat in AM. Code: full Dispo: med/surg DVTP: eliquis (2) PNA (pneumonia): (3) Hypertension: (4) Atrial fibrillation: (5) Dysphagia: (6) CVA (cerebral vascular accident): (7) Carotid stenosis, bilateral: (8) Hyperlipidemia: (9) Hypothyroid: (10) Urinary incontinence: History of Present Illness Chief Complaint: increased confusion Primary Care Provider: Charles Blanchard MD Patient is a pleasant 88yo F PMH CVA, pAFib, HTN, HLD, Hypothyroid, urinary incontinence presents with sons from [facility] for increased confusion in the past 24 hours. Patient has residual confusion and short term memory loss from CVA, but staff and sons noted an acute change from yesterday to today. Patient also has residual issues with aspiration from prior CVA. Sons took her to [facility] as she has frequent UTIs, but [facility] suggested they come to the hospital. On arrival, she was pleasant but acutely confused, with sats in the low 90s and some mild increase work of breathing. She was hypertensive. WBC of 12,000. UA dirty. Patient unable to contribute to HPI as she is "unsure" of most questions I ask. She denies chest pain, states her cough has been here "a while" and that she may have been having some discomfort while urinating. Disoriented. CXR shows some reticulonodular findings, some possible opacification, pleural effusion. CT head negative. She was dosed with vanc and zosyn. Allergies Allergy/AdvReac Type Severity Reaction Status Date / Time No Known Allergies Allergy Unverified 02/11/19 17:25 Home Medications Home Medications Medication Instructions Recorded Confirmed Type calcium carbonate-vitamin D3 1 tab PO DAILY 12/16/18 02/11/19 History [[place] 500 + D3] darifenacin 7.5 mg PO DAILY 12/16/18 02/11/19 History levothyroxine 75 mcg PO DAILY 12/16/18 02/11/19 History multivitamin 1 tab PO DAILY 12/16/18 02/11/19 History omega-3 fatty acids 1,000 mg PO DAILY 12/16/18 02/11/19 History pravastatin 20 mg PO HS 12/16/18 02/11/19 History telmisartan 80 mg PO BID 12/16/18 02/11/19 History aspirin [Ecotrin Low Strength] 81 mg PO QAM #30 tab 12/20/18 02/11/19 Rx latanoprost 1 drp OPB HS #15 ml 12/20/18 02/11/19 Rx acetaminophen 650 mg PO Q4H PRN 02/11/19 02/11/19 History apixaban [Eliquis] 2.5 mg PO BID 02/11/19 02/11/19 History bisacodyl 10 mg [place] DAILY PRN 02/11/19 02/11/19 History docusate sodium 100 mg PO BID 02/11/19 02/11/19 History losartan 100 mg PO DAILY 02/11/19 02/11/19 History magnesium hydroxide [Milk of 30 ml PO DAILY PRN 02/11/19 02/11/19 History Magnesia] metoprolol tartrate 25 mg PO BID 02/11/19 02/11/19 History polyethylene glycol 3350 [Miralax] 17 g PO DAILY@1200 PRN 02/11/19 02/11/19 History sennosides [Senna Lax] 8.6 mg PO DAILY@1200 PRN 02/11/19 02/11/19 History sodium phosphates [Fleet Enema] 118 ml [place] DAILY PRN 02/11/19 02/11/19 History Past Med/Surg History Medical History Hx of glaucoma (Chronic) Urinary tract infection (Chronic) Atrial fibrillation with rapid ventricular response (Chronic) Heart disease (Chronic) Hypertension (Chronic) Family History Other Family history non-contributory Social History Preferred Language: Cypriot Communication Ability: Effective 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 Beliefs That Will Affect Care: None marital status: / Current Living Situation: Personal Care Facility current occupational status: retired Feels Safe at Home: Yes Safety Concerns: Feels Safe At This Time Smoking Status: Never smoker Hx Alcohol Use: No Hx Substance Use: No Review of Systems Review of Systems: Unobtainable due to cognitive status Physical Exam Constitutional: WD/WN, vitals as above + well hydrated and + overweight; no acute distress Eyes: PERRL, conjunctivae normal, anicteric sclerae ENMT: external ear and nose normal, oropharynx normal Neck: trachea midline, no thyromegaly Respiratory: normal respiratory effort; no respiratory distress Auscultation: + crackles (bibasilar) and + wheezes (scattered) Cardiovascular: Rate/Rhythm: regular rate and regular rhythm Extremities: + pedal edema (trace-1+) Gastrointestinal (Abdomen): normal bowel sounds, soft, nontender, no hepatosplenomegaly Inspection/Auscultation: + abdomen distended Neurologic: PERRL, EOMI, accommodation nl, no face palsy, no dysarthria Psychiatric: Orientation: alert; + not oriented x 3 Eye Contact: good eye contact Results & Data Vital Signs (Past 12 Hours) Vital Signs Temp Pulse Pulse Resp BP BP Pulse Ox 02/11/19 20:01 88 23 181/103 H 02/11/19 19:31 82 17 184/94 H 02/11/19 19:01 88 24 189/107 H 100 02/11/19 18:32 82 31 H 184/115 H 100 02/11/19 18:22 89 26 H 184/99 H 100 02/11/19 17:53 98 02/11/19 17:47 101 H 27 H 200/101 H 94 02/11/19 17:45 94 H 28 H 200/101 H 92 02/11/19 16:01 36.5 C 90 20 168/119 H 96 Laboratory Results 02/11/19 02/11/19 02/11/19 Range/Units 16:45 16:28 16:28 WBC (4.8-10.8) K/uL RBC (4.2-5.4) M/uL Hgb (12.0-16.0) g/dL Hct (37-47) % MCV (80-100) fL MCH (25-34) pg MCHC (32-36) g/dL RDW Std Deviation (36.4-46.3) fL RDW Coeff of Nicole (11.5-14.5) % Plt Count (130-400) K/uL MPV (7.4-10.4) fL Immature Gran % (Auto) % Neut % (Auto) % Lymph % (Auto) % [place] % (Auto) % Eos % (Auto) % Baso % (Auto) % Immature Gran # (Auto) (0.00-0.02) K/uL Neut # (Auto) (1.4-6.5) K/uL Lymph # (Auto) (1.2-3.4) K/uL [place] # (Auto) (0.11-0.59) K/uL Eos # (Auto) (0-0.5) K/uL Baso # (Auto) (0-0.2) K/uL Sodium 137 (136-145) mmol/L Potassium 3.6 (3.5-5.1) mmol/L Chloride 105 (98-107) mmol/L Carbon Dioxide 25 (21-32) mmol/L Anion Gap 7.0 (3-11) BUN 18 (7-18) mg/dl Creatinine 1.01 (0.6-1.2) mg/dl Est Cr Clr Drug Dosing 34.2 ml/min Est GFR ( Amer) 57.6 Est GFR (Non-Af Amer) 49.7 BUN/Creatinine Ratio 17.5 (10-20) Glucose 96 (70-99) mg/dl Calcium 9.6 (8.5-10.1) mg/dl Total Bilirubin 1.2 H (0.2-1) mg/dl AST 24 (15-37) U/L ALT 20 (12-78) U/L Alkaline Phosphatase 99 (45-117) U/L Troponin I Cancelled 0.022 (0-0.045) ng/ml Total Protein 7.8 (6.4-8.2) gm/dl Albumin 3.2 L (3.4-5.0) gm/dl Globulin 4.6 H (2.5-4.0) gm/dl Albumin/Globulin Ratio 0.7 L (0.9-2) TSH 3.110 (0.300-4.500) uIu/ml Urine Color Yellow Urine Appearance Clear (Clear) Urine pH 7.5 (4.5-7.5) Ur Specific [place] 1.016 (1.000-1.030) Urine Protein 2+ H (Negative) Urine Glucose (UA) Negative (Negative) Urine Ketones Negative (Negative) Urine Blood Negative (Negative) Urine Nitrite Negative (Negative) Urine Bilirubin Negative (Negative) Urine Urobilinogen Negative (Negative) Ur Leukocyte Esterase Trace H (Negative) Urine WBC (Auto) 5-10 H (0-5) /hpf Urine RBC (Auto) 0-4 (0-4) /hpf U Hyaline Cast (Auto) 1-5 (0-5) /lpf U Epithel Cells (Auto) >30 H (0-5) /lpf Urine Bacteria (Auto) 1+ H (Negative) Ur Renal Epithelial Cell 0-5 (0-5) /lpf 02/11/19 Range/Units 16:28 WBC 12.04 H (4.8-10.8) K/uL RBC 3.95 L (4.2-5.4) M/uL Hgb 12.1 (12.0-16.0) g/dL Hct 36.3 L (37-47) % MCV 91.9 (80-100) fL MCH 30.6 (25-34) pg MCHC 33.3 (32-36) g/dL RDW Std Deviation 49.7 H (36.4-46.3) fL RDW Coeff of Nicole 14.9 H (11.5-14.5) % Plt Count 304 (130-400) K/uL MPV 9.4 (7.4-10.4) fL Immature Gran % (Auto) 0.6 % Neut % (Auto) 67.7 % Lymph % (Auto) 23.3 % [place] % (Auto) 6.7 % Eos % (Auto) 1.1 % Baso % (Auto) 0.6 % Immature Gran # (Auto) 0.07 H (0.00-0.02) K/uL Neut # (Auto) 8.15 H (1.4-6.5) K/uL Lymph # (Auto) 2.81 (1.2-3.4) K/uL [place] # (Auto) 0.81 H (0.11-0.59) K/uL Eos # (Auto) 0.13 (0-0.5) K/uL Baso # (Auto) 0.07 (0-0.2) K/uL Sodium (136-145) mmol/L Potassium (3.5-5.1) mmol/L Chloride (98-107) mmol/L Carbon Dioxide (21-32) mmol/L Anion Gap (3-11) BUN (7-18) mg/dl Creatinine (0.6-1.2) mg/dl Est Cr Clr Drug Dosing ml/min Est GFR ( Amer) Est GFR (Non-Af Amer) BUN/Creatinine Ratio (10-20) Glucose (70-99) mg/dl Calcium (8.5-10.1) mg/dl Total Bilirubin (0.2-1) mg/dl AST (15-37) U/L ALT (12-78) U/L Alkaline Phosphatase (45-117) U/L Troponin I (0-0.045) ng/ml Total Protein (6.4-8.2) gm/dl Albumin (3.4-5.0) gm/dl Globulin (2.5-4.0) gm/dl Albumin/Globulin Ratio (0.9-2) TSH (0.300-4.500) uIu/ml Urine Color Urine Appearance (Clear) Urine pH (4.5-7.5) Ur Specific [place] (1.000-1.030) Urine Protein (Negative) Urine Glucose (UA) (Negative) Urine Ketones (Negative) Urine Blood (Negative) Urine Nitrite (Negative) Urine Bilirubin (Negative) Urine Urobilinogen (Negative) Ur Leukocyte Esterase (Negative) Urine WBC (Auto) (0-5) /hpf Urine RBC (Auto) (0-4) /hpf U Hyaline Cast (Auto) (0-5) /lpf U Epithel Cells (Auto) (0-5) /lpf Urine Bacteria (Auto) (Negative) Ur Renal Epithelial Cell (0-5) /lpf Diagnostic Findings CT head/brain wo con CLINICAL HISTORY: 88 years-old Female presenting with AMS, confusion. TECHNIQUE: Multidetector CT imaging of the head was performed without the use of intravenous contrast. IV contrast: None. One or more dose lowering techniques were used consistent with the principles of ALARA (as low as reasonably achievable), including automatic exposure control, mA or kV adjustment to individual patient size, and/or use of iterative reconstruction. COMPARISON: 08/31/2016. CT DOSE (mGy.cm): The estimated cumulative dose is 1034.04 mGycm. FINDINGS: Elastic Yarn Twister Helper topogram: Unremarkable. Proportional ventricular and sulcal prominence, likely age-related parenchymal volume loss. No hemorrhage. Periventricular and subcortical white matter hypoattenuation, nonspecific but likely indicative of chronic small vessel ischemic change. Few lacunar infarct suggested in the right basal ganglia, unchanged from prior. Old limited cortical infarct in the right parieto- occipital region. No acute territorial infarct. No mass effect or midline shift. No extra-axial fluid collection. Paranasal sinuses and mastoid air cells clear. Calvarium intact. IMPRESSION: 1. Chronic small vessel ischemic change. 2. Old right basilar lacunar infarcts and limited cortical infarct in the right parieto-occipital region. These are unchanged from prior. 3. No acute intracranial abnormality. Electronically signed by: Kenyon Brannon M.D. 02/11/2019 5:40 PM XR chest 1V portable CLINICAL HISTORY: 88 years-old Female presenting with weakness. TECHNIQUE: Portable upright AP view of the chest was obtained. COMPARISON: None. FINDINGS: Atherosclerosis of the aortic arch. Cardiac silhouette enlarged. Mitral annular calcification suggested. Coarsened lung markings. Vague reticulonodular opacities diffusely. Trace bilateral pleural effusions. No pneumothorax. Degener ative changes of the thoracic spine. Upper abdomen normal. IMPRESSION: 1. Cardiomegaly. 2. Possible underlying chronic lung disease. Superimposed vague reticulonodular infiltrates not excluded. Consider PA and lateral views for better assessment. Electronically signed by: Kenyon Brannon M.D. 02/11/2019 4:22 PM Code Status & VTE Plan Code Status Full VTE Prophylaxis Plan VTE Prophylaxis will be ordered: Yes Supervising Physician Co-Signing Physician Notes Malia Arroyo is an 88yo C female with history of AF, HTN, HLP, CVA with residual aspiration presenting with AMS - sleepiness and confusion, concern for infectious process, urine vs PNA. Complaining of cough productive for yellow sputum. On arrival to ER she was found to have some increased work of breathing On my exam, afebrile, HD stable, no evidence of respiratory distress, nonlabored breathing Skin - no rash HEENT - MMM, neck supple Heart - +S1/S2, irregularly irregular Lungs - basilar crackles Abd - +BS, soft, NT/ND Ext - No edema Labs and images reviewed. Possible infiltrate on CXR Assessment/Plan: ?Aspiration PNA - cover with Azithro and Zosyn CXR PA and lateral in AM Speech assessment Remainder of plan as above Resident Activity Tracking Resident Involvement: Resident Care Provided Care Provided: Adult Hospital Medicine (1) Dysphagia Dysphagia type: unspecified Qualified Code(s): R13.10 - Dysphagia, unspeci fied (2) Altered mental status Altered mental status type: unspecified Qualified Code(s): R41.82 - Altered mental status, unspecified (3) Hypertension Hypertension type: unspecified Qualified Code(s): I10 - Essential (primary) hypertension (4) PNA (pneumonia) Laterality: right Lung location: lower lobe of lung Pneumonia type: due to unspecified organism Qualified Code(s): J18.1 - Lobar pneumonia, unspecified organism
[2019-02-11] MEDS ORDERED: POLYETHYLENE (MIRALAX) 17 GM PACK PO PRN (22:08)
[2019-02-11] MEDS ORDERED: ACETAMINOPHEN 325 MG TAB PO PRN (22:08)
[2019-02-11] MEDS ORDERED: ONDANSETRON INJ 2 MG/ML 2 ML VIAL IV PRN (22:08)
[2019-02-11] MEDS ORDERED: ALUMINUM/MAGNESIUM SUSP 30 ML UDC PO PRN (22:08)
[2019-02-11] MEDS: TELMISARTAN 40 MG TAB PO SCH (22:22)
[2019-02-11] MEDS: APIXABAN 2.5 MG TAB PO SCH (22:22)
[2019-02-11] MEDS: METOPROLOL TARTRATE 25 MG TAB PO SCH (22:23)
[2019-02-11] MEDS: PRAVASTATIN SOD 20 MG TAB PO SCH (22:23)
[2019-02-11] MEDS: DOCUSATE SODIUM 100 MG CAP PO SCH (22:23)
[2019-02-11] MEDS: LATANOPROST 0.005% OP SOLN 2.5 ML BTL OPB SCH (22:25)
[2019-02-11] MEDS: PIPERACILLIN/TAZOBACTAM 3.375 GM in DEXTROSE 5% 100 ML IV SCH (23:36)
[2019-02-11] MEDS: [UNRECOGNIZED DRUG - OTHER] SCH (23:40)
--- NOTE | 2019-02-12 01:16 | Emergency Department Note ---
Entered by Khadra Wilson acting as a scribe for Aldo Escobedo MD ED Provider Note CHIEF COMPLAINT: worsening confusion HISTORY OF PRESENT ILLNESS: The patient is a 88 year old F who presents to the Emergency Room with complaints of worsening confusion that started 1 day ago. The HPI was first provided by the patients son. He states that the patient lives at [facility] at [place], [place]. He states that the patient has a history of atrial fibrillation, glaucoma, UTIs, and strokes. He notes that the patients current confusion is similar to the last time the patient had a UTI. He states that the patient had an MRI of her brain done 3 months ago which showed a stroke. He adds that the patient had eye surgery done previously for glaucoma in her right eye. The patient states that she is currently experiencing a cough, congestion, and a slight headache. The patients son states that the patients congestion is due to the patient choking on her saliva when eating. He adds that the patient also has leg swelling which is chronic. 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 The patient is currently on Eliquis for A Fib. Pt denies LOC, fevers, chills, diaphoresis, visual changes, neck pain, chest pain, breathing difficulties, nausea, vomiting, abdominal pain, back pain, melena, hematochezia, diarrhea, constipation, urinary symptoms, numbness, weakness, lymphadenopathy, rash, or other complaints. REVIEW OF SYSTEMS: See HPI for pertinent positives and negatives. A total of ten systems were reviewed and were otherwise negative. PMHx/PSHx: heart disease, hypertension, A Fib, UTIs, glaucoma, and strokes SOCIAL HISTORY: Patient lives at home. Patient is retired. PHYSICAL EXAM: GENERAL: Awake, confused, well-appearing, in no distress HENT: Normocephalic, atraumatic. Oropharynx unremarkable. EYES: PERRL. Normal conjunctiva. Sclera non-icteric. NECK: Inspection normal. Non-tender. Supple. No nuchal rigidity. FROM. No ma sses. RESPIRATORY: Clear to auscultation. No wheezes. No rales. Normal respiratory effort. CARDIAC: Normal rate. Irregular rhythm. No murmurs. No rubs. Extremities warm and well perfused. Pulses equal. No JVD. GI: Soft, non-distended. No tenderness to palpation. No rebound or guarding. No masses. RECTAL: Deferred. MUSCULOSKELETAL: Atraumatic. Chest examination reveals no tenderness. The back i s symmetrical on inspection without obvious abnormality. There is no CVA tenderness to palpation. No joint edema. LOWER EXTREMITIES: Calves are equal size bilaterally and non-tender. 1+ edema. No discoloration. NEURO: Normal sensorium. No sensory or motor deficits noted. SKIN: No rash or jaundice noted. EMERGENCY DEPARTMENT COURSE: 1640: The patient was evaluated in room A12B, and a complete history and physical examination were performed. 1750: I updated the patient's family on her test results. The patient's family is comfortable with the plan. The [facility] hospitalist was paged. 175: I reviewed the patient's case with Dr Nation. Dr. Garsia will evaluate the patient for further management. MEDICAL DECISION MAKING: Prior records/ancillary studies reviewed. The patient was evaluated by [facility] neurology on her last visit. She had thromboembolic causes for her CVA. Nursing notes reviewed and agree them. Additional history obtained from family. The patient's history was concerning for altered mental status. Differential diagnosis: Etiologies such as infection, hypoglycemia, electrolyte abnormalities, cardiac sources, intracerebral event, toxicologic, neurologic, as well as others were entertained. Physical examination: As above. Confused but nonfocal. ER treatment provided: IV Lock Normal saline hydration at 125 mL an hour IV. IV vancomycin Nitropaste 0.5 inch to the chest wall On reassessment the patient was stable. Diagnostics interpretation by me: ECG: A. fib without changes The labs revealed a mild leukocytosis on CBC. Chemistry panel was unremarkable. Imaging studies: Chest x-ray was performed and was concerned for a superimposed infiltrate. CT scan of the head was performed and was negative for any acute change. The patient appears to have a developing pneumonia. She has a history of aspiration. She does have bacteria on urinalysis. Her blood work was unremarkable except for her leukocytosis. Further management in the hospital will be necessary. Consultation: A consultation was placed with the hospitalist. The case was discussed and diag nostics were reviewed. The patient was evaluated in the ER for further treatment. IMPRESSION: AMS, PNA, leukocytosis, hypertension PLAN: The patient was admitted to the hospital. The scribe's documentation has been prepared under my direction and personally reviewed by me in its entirety. I confirm that the note above accurately reflects all work, treatment, procedures, and medical decision making performed by me. 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 Beliefs That Will Affect Care: None marital status: / Current Living Situation: Personal Care Facility current occupational status: retired Feels Safe at Home: Yes Safety Concerns: Feels Safe At This Time Smoking Status: Never smoker Hx Alcohol Use: No Hx Substance Use: No Results & Data Vital Signs Vital Signs - 24 hr 02/11/19 16:01 02/11/19 16:05 02/11/19 17:45 Temperature 36.5 C Temperature Source Oral Sepsis Recent Fever Within 48 Hours No Sepsis New/Unexplained Change in Mental Status No Sepsis Action Taken by Nursing No Action Required Pulse Rate 90 Pulse Rate [Apical] 94 H Pulse Rate from SpO2 Sensor Respiratory Rate 20 28 H Respiratory Effort / Characteristics Non-Labored Respiratory Depth Normal Respiratory Pattern Regular Blood Pressure 168/119 H Blood Pressure [Left Arm] 200/101 H Blood Pressure Mean 135 Blood Pressure Mean [Left Arm] 134 Pulse Oximetry 96 92 Oxygen Delivery Method Room Air Room Air Room Air Oxygen Flow Rate 02/11/19 17:47 02/11/19 17:53 02/11/19 18:22 Temperature Temperature Source Sepsis Recent Fever Within 48 Hours Sepsis New/Unexplained Change in Mental Status Sepsis Action Taken by Nursing Pulse Rate 101 H 89 Pulse Rate [Apical] Pulse Rate from SpO2 Sensor Respiratory Rate 27 H 26 H Respiratory Effort / Characteristics Respiratory Depth Respiratory Pattern Blood Pressure 200/101 H 184/99 H Blood Pressure [Left Arm] Blood Pressure Mean 134 127 Blood Pressure Mean [Left Arm] Pulse Oximetry 94 98 100 Oxygen Delivery Method Room Air Nasal Cannula Nasal Cannula Oxygen Flow Rate 2 2 02/11/19 18:32 02/11/19 19:01 02/11/19 19:31 Temperature Temperature Source Sepsis Recent Fever Within 48 Hours Sepsis New/Unexplained Change in Mental Status Sepsis Action Taken by Nursing Pulse Rate 82 88 82 Pulse Rate [Apical] Pulse Rate from SpO2 Sensor Respiratory Rate 31 H 24 17 Respiratory Effort / Characteristics Respiratory Depth Respiratory Pattern Blood Pressure 184/115 H 189/107 H 184/94 H Blood Pressure [Left Arm] Blood Pressure Mean 138 134 124 Blood Pressure Mean [Left Arm] Pulse Oximetry 100 100 Oxygen Delivery Method Nasal Cannula Nasal Cannula Oxygen Flow Rate 2 2 02/11/19 20:01 02/11/19 20:02 02/11/19 20:30 Temperature Temperature Source Sepsis Recent Fever Within 48 Hours Sepsis New/Unexplained Change in Mental Status Sepsis Action Taken by Nursing Pulse Rate 88 80 79 Pulse Rate [Apical] Pulse Rate from SpO2 Sensor 81 Respiratory Rate 23 23 21 Respiratory Effort / Characteristics Respiratory Depth Respiratory Pattern Blood Pressure 181/103 H Blood Pressure [Left Arm] Blood Pressure Mean 129 Blood Pressure Mean [Left Arm] Pulse Oximetry 97 Oxygen Delivery Method Nasal Cannula Oxygen Flow Rate 2 02/11/19 20:31 Temperature Temperature Source Sepsis Recent Fever Within 48 Hours Sepsis New/Unexplained Change in Mental Status Sepsis Action Taken by Nursing Pulse Rate 78 Pulse Rate [Apical] Pulse Rate from SpO2 Sensor 80 Respiratory Rate 18 Respiratory Effort / Characteristics Respiratory Depth Respiratory Pattern Blood Pressure 151/84 H Blood Pressure [Left Arm] Blood Pressure Mean 106 Blood Pressure Mean [Left Arm] Pulse Oximetry 97 Oxygen Delivery Method Nasal Cannula Oxygen Flow Rate 2 Home Medications Current Medication List: was personally reviewed by me Laboratory Data Attestation: I reviewed the patient's lab results. Result diagrams: 02/11/19 16:28 02/11/19 16:28 Lab Results 02/11/19 02/11/19 02/11/19 Range/Units 16:28 16:28 16:28 WBC 12.04 H (4.8-10.8) K/uL RBC 3.95 L (4.2-5.4) M/uL Hgb 12.1 (12.0-16.0) g/dL Hct 36.3 L (37-47) % MCV 91.9 (80-100) fL MCH 30.6 (25-34) pg MCHC 33.3 (32-36) g/dL RDW Std Deviation 49.7 H (36.4-46.3) fL RDW Coeff of Nicole 14.9 H (11.5-14.5) % Plt Count 304 (130-400) K/uL MPV 9.4 (7.4-10.4) fL Immature Gran % (Auto) 0.6 % Neut % (Auto) 67.7 % Lymph % (Auto) 23.3 % Swain % (Auto) 6.7 % Eos % (Auto) 1.1 % Baso % (Auto) 0.6 % Immature Gran # (Auto) 0.07 H (0.00-0.02) K/uL Neut # (Auto) 8.15 H (1.4-6.5) K/uL Lymph # (Auto) 2.81 (1.2-3.4) K/uL Swain # (Auto) 0.81 H (0.11-0.59) K/uL Eos # (Auto) 0.13 (0-0.5) K/uL Baso # (Auto) 0.07 (0-0.2) K/uL Sodium 137 (136-145) mmol/L Potassium 3.6 (3.5-5.1) mmol/L Chloride 105 (98-107) mmol/L Carbon Dioxide 25 (21-32) mmol/L Anion Gap 7.0 (3-11) BUN 18 (7-18) mg/dl Creatinine 1.01 (0.6-1.2) mg/dl Est Cr Clr Drug Dosing 34.2 ml/min Est GFR ( Amer) 57.6 Est GFR (Non-Af Amer) 49.7 BUN/Creatinine Ratio 17.5 (10-20) Glucose 96 (70-99) mg/dl Calcium 9.6 (8.5-10.1) mg/dl Total Bilirubin 1.2 H (0.2-1) mg/dl AST 24 (15-37) U/L ALT 20 (12-78) U/L Alkaline Phosphatase 99 (45-117) U/L Troponin I 0.022 Cancelled (0-0.045) ng/ml Total Protein 7.8 (6.4-8.2) gm/dl Albumin 3.2 L (3.4-5.0) gm/dl Globulin 4.6 H (2.5-4.0) gm/dl Albumin/Globulin Ratio 0.7 L (0.9-2) TSH 3.110 (0.300-4.500) uIu/ml Urine Color Urine Appearance (Clear) Urine pH (4.5-7.5) Ur Specific [place] (1.000-1.030) Urine Protein (Negative) Urine Glucose (UA) (Negative) Urine Ketones (Negative) Urine Blood (Negative) Urine Nitrite (Negative) Urine Bilirubin (Negative) Urine Urobilinogen (Negative) Ur Leukocyte Esterase (Negative) Urine WBC (Auto) (0-5) /hpf Urine RBC (Auto) (0-4) /hpf U Hyaline Cast (Auto) (0-5) /lpf U Epithel Cells (Auto) (0-5) /lpf Urine Bacteria (Auto) (Negative) Ur Renal Epithelial Cell (0-5) /lpf 02/11/19 Range/Units 16:45 WBC (4.8-10.8) K/uL RBC (4.2-5.4) M/uL Hgb (12.0-16.0) g/dL Hct (37-47) % MCV (80-100) fL MCH (25-34) pg MCHC (32-36) g/dL RDW Std Deviation (36.4-46.3) fL RDW Coeff of Nicole (11.5-14.5) % Plt Count (130-400) K/uL MPV (7.4-10.4) fL Immature Gran % (Auto) % Neut % (Auto) % Lymph % (Auto) % Swain % (Auto) % Eos % (Auto) % Baso % (Auto) % Immature Gran # (Auto) (0.00-0.02) K/uL Neut # (Auto) (1.4-6.5) K/uL Lymph # (Auto) (1.2-3.4) K/uL Swain # (Auto) (0.11-0.59) K/uL Eos # (Auto) (0-0.5) K/uL Baso # (Auto) (0-0.2) K/uL Sodium (136-145) mmol/L Potassium (3.5-5.1) mmol/L Chloride (98-107) mmol/L Carbon Dioxide (21-32) mmol/L Anion Gap (3-11) BUN (7-18) mg/dl Creatinine (0.6-1.2) mg/dl Est Cr Clr Drug Dosing ml/min Est GFR ( Amer) Est GFR (Non-Af Amer) BUN/Creatinine Ratio (10-20) Glucose (70-99) mg/dl Calcium (8.5-10.1) mg/dl Total Bilirubin (0.2-1) mg/dl AST (15-37) U/L ALT (12-78) U/L Alkaline Phosphatase (45-117) U/L Troponin I (0-0.045) ng/ml Total Protein (6.4-8.2) gm/dl Albumin (3.4-5.0) gm/dl Globulin (2.5-4.0) gm/dl Albumin/Globulin Ratio (0.9-2) TSH (0.300-4.500) uIu/ml Urine Color Yellow Urine Appearance Clear (Clear) Urine pH 7.5 (4.5-7.5) Ur Specific [place] 1.016 (1.000-1.030) Urine Protein 2+ H (Negative) Urine Glucose (UA) Negative (Negative) Urine Ketones Negative (Negative) Urine Blood Negative (Negative) Urine Nitrite Negative (Negative) Urine Bilirubin Negative (Negative) Urine Urobilinogen Negative (Negative) Ur Leukocyte Esterase Trace H (Negative) Urine WBC (Auto) 5-10 H (0-5) /hpf Urine RBC (Auto) 0-4 (0-4) /hpf U Hyaline Cast (Auto) 1-5 (0-5) /lpf U Epithel Cells (Auto) >30 H (0-5) /lpf Urine Bacteria (Auto) 1+ H (Negative) Ur Renal Epithelial Cell 0-5 (0-5) /lpf Administered Medications Acetaminophen (Tylenol) 650 mg PO Q4H PRN PRN Reason: pain/fever Stop: 03/13/19 22:07 Last Admin: 02/12/19 00:43 Dose: 650 mg Documented by: [id number] Apixaban (Eliquis) 2.5 mg PO BID [facility] Stop: 03/13/19 20:59 Last Admin: 02/11/19 22:22 Dose: 2.5 mg Documented by: [id number] Docusate Sodium (Colace) 100 mg PO BID [facility] Stop: 03/13/19 20:59 Last Admin: 02/11/19 22:23 Dose: 100 mg Documented by: [id number] Piperacillin Sod/Tazobactam (Sod 3.375 gm/ Dextrose) 115 mls @ 28.75 mls/hr IV Q8H [facility]; Protocol Stop: 02/19/19 00:00 Last Admin: 02/11/19 23:36 Dose: 28.8 mls/hr Documented by: [id number] Latanoprost (Xalatan Oph) 1 drops OPB [facility] Stop: 03/13/19 20:59 Last Admin: 02/11/19 22:25 Dose: 1 drops Documented by: [id number] Metoprolol Tartrate (Lopressor) 25 mg PO BID [facility] Stop: 03/13/19 20:59 Last Admin: 02/11/19 22:23 Dose: 25 mg Documented by: [id number] Miscellaneous (Order Awaiting Action) 1 ea N/A QS [facility] Stop: 03/14/19 00:00 Last Admin: 02/11/19 23:40 Dose: Not Given Documented by: [id number] Pravastatin Sodium (Pravachol) 20 mg PO [facility] Stop: 03/13/19 20:59 Last Admin: 02/11/19 22:23 Dose: 20 mg Documented by: [id number] Telmisartan (Micardis) 80 mg PO BID [facility] Stop: 03/13/19 20:59 Last Admin: 02/11/19 22:22 Dose: 80 mg Documented by: [id number] Discontinued Medications Piperacillin Sod/Tazobactam Sod (Zosyn) 4.5 gm in 120 mls @ 240 mls/hr IV NOW ONE Stop: 02/11/19 17:31 Last Infusion: 02/11/19 18:11 Dose: 0 mls/hr Documented by: [id number] Admin: 02/11/19 17:41 Dose: 240 mls/hr Documented by: [id number] Sodium Chloride (Nss 1000ml) 1,000 mls @ 125 mls/hr IV .Q8H [facility] Stop: 02/12/19 01:13 Last Admin: 02/11/19 17:41 Dose: 125 mls/hr Documented by: [id number] Vancomycin HCl 1,250 mg/ (Sodium Chloride) 525 mls @ 200 mls/hr IV NOW ONE; Protocol Stop: 02/11/19 22:40 Last Infusion: 02/11/19 23:08 Dose: 0 mls/hr Documented by: [id number] Admin: 02/11/19 20:30 Dose: 200 mls/hr Documented by: [id number] Nitroglycerin (Nitro-Bid 2%) 0.5 inch EXT NOW STA Stop: 02/11/19 18:24 Last Admin: 02/11/19 19:07 Dose: 0.5 inch Documented by: [id number] Imaging Data Radiologist's Impression: Radiology results as stated below per my review and the radiologist's interpretation: XR chest 1V portable CLINICAL HISTORY: 88 years-old Female presenting with weakness. TECHNIQUE: Portable upright AP view of the chest was obtained. COMPARISON: None. FINDINGS: Atherosclerosis of the aortic arch. Cardiac silhouette enlarged. Mitral annular calcification suggested. Coarsened lung markings. Vague reticulonodular opacities diffusely. Trace bilateral pleural effusions. No pneumothorax. Degenerative changes of the thoracic spine. Upper abdomen normal. IMPRESSION: 1. Cardiomegaly. 2. Possible underlying chronic lung disease. Superimposed vague reticulonodular infiltrates not excluded. Consider PA and lateral views for better assessment. Electronically signed by: Kenyon Brannon M.D. 02/11/2019 4:[address] head/brain wo con CLINICAL HISTORY: 88 years-old Female presenting with AMS, confusion. TECHNIQUE: Multidetector CT imaging of the head was performed without the use of intravenous contrast. IV contrast: None. One or more dose lowering techniques were used consistent with the principles of ALARA (as low as reasonably achievable), including automatic exposure control, mA or kV adjustment to individual patient size, and/or use of iterative reconstruction. COMPARISON: 08/31/2016. CT DOSE (mGy.cm): The estimated cumulative dose is 1034.04 mGycm. FINDINGS: [employer] Instructor topogram: Unremarkable. Proportional ventricular and sulcal prominence, likely age-related parenchymal volume loss. No hemorrhage. Periventricular and subcortical white matter hypoattenuation, nonspecific but likely indicative of chronic small vessel ischemic change. Few lacunar infarct suggested in the right basal ganglia, unchanged from prior. Old limited cortical infarct in the right parieto- occipital region. No acute territorial infarct. No mass effect or midline shift. No extra-axial fluid collection. Paranasal sinuses and mastoid air cells clear. Calvarium intact. IMPRESSION: 1. Chronic small vessel ischemic change. 2. Old right basilar lacunar infarcts and limited cortical infarct in the right parieto-occipital region. These are unchanged from prior. 3. No acute intracranial abnormality. Electronically signed by: Kenyon Brannon M.D. 02/11/2019 5:40 PM ECG Data Attestation: I personally reviewed and interpreted this ECG as follows: Indication: altered mental status Rate (beats per minute): 100 Rhythm: atrial fibrillation Findings: + other (RVH, prolonged QT) and + RBBB (incomplete); no PVC, no ST depression and no ST elevation Comparison ECG Date: from (12/16/18) Change: no significant change Blood Pressure Blood Pressure Findings: Elevated blood pressure Blood Pressure Disposition: further management by hospitalist Discharge Plan Visit Data *Final* Discharge Date/Time: 02/11/19 21:48 Chief Complaint: Confusion Stated Complaint: REF BY DOCTOR; CONFUSION, HIGH BP ED Provider: Aldo Escobedo Discharge Problem: Altered mental status, Hypertension, PNA (pneumonia), Leukocytosis Patient Disposition: Admitted As Inpatient Discharge Instructions Interventions: ED Discharge Assessment Last Done: 02/11/19 21:48 Discharge Problem: Altered mental status Qualifiers: Altered mental status type: unspecified Qualified Code(s): R41.82 - Altered mental status, unspecified Hypertension Qualifiers: Hypertension type: unspecified Qualified Code(s): I10 - Essential (primary) hypertension PNA (pneumonia) Qualifiers: Pneumonia type: due to unspecified organism Laterality: right Lung location: lower lobe of lung Qualified Code(s): J18.1 - Lobar pneumonia, unspecified organism Leukocytosis Qualifiers: Leukocytosis type: unspecified Qualified Code(s): D72.829 - Elevated white blood cell count, unspecified The scribe's documentation has been prepared under my direction and personally reviewed by me in its entirety. I confirm that the note above accurately reflects all work, treatment, procedures, and medical decision making performed by me.
[2019-02-12] MEDS: LEVOTHYROXINE SODIUM 75 MCG TABLET PO SCH (06:00)
[2019-02-12] MEDS: [UNRECOGNIZED DRUG - OTHER] SCH ×3 (07:06→23:54)
[2019-02-12 07:43] LABS: Basophils # (auto) 0.05 K/uL (0-0.2); Basophils % (auto) 0.6 %; Eosinophils # (auto) 0.53 K/uL (0-0.5); Eosinophils % (auto) 6.5 %; Hematocrit (blood only) 32.1 % (37-47); Hemoglobin 10.3 g/dL (12.0-16.0); Immature Granulocytes # (auto) 0.03 K/uL (0.00-0.02); Immature Granulocytes % (auto) 0.4 %; Lymphocytes # (auto) 2.19 K/uL (1.2-3.4); Lymphocytes % (auto) 26.7 %; Mean Corpuscular Hgb Conc 32.1 g/dL (32-36); Mean Corpuscular Volume 93.9 fL (80-100); Mean Platelet Volume 9.1 fL (7.4-10.4); Monocytes # (auto) 0.55 K/uL (0.11-0.59); Monocytes % (auto) 6.7 %; Neutrophils # (auto) 4.86 K/uL (1.4-6.5); Neutrophils % (auto) 59.1 %; Platelet Count 266 K/uL (130-400); RDW Coefficient of Variation 15.2 % (11.5-14.5); RDW Standard Deviation 51.6 fL (36.4-46.3); Red Blood Count 3.42 M/uL (4.2-5.4); White Blood Count 8.21 K/uL (4.8-10.8)
[2019-02-12 08:18] LABS: Albumin Globulin Ratio 0.7 (0.9-2); Albumin Level 2.6 gm/dl (3.4-5.0); BUN Creatinine Ratio 18.2 (10-20); Bilirubin,Total 1.1 mg/dl (0.2-1); Calcium 8.2 mg/dl (8.5-10.1); Creatinine Clr Calc Pharmacy 36.8 ml/min; Est GFR (African American) 62.8; Est GFR (Non-African American) 54.2; Globulin 3.7 gm/dl (2.5-4.0); Potassium 3.6 mmol/L (3.5-5.1); Total Protein 6.3 gm/dl (6.4-8.2)
[2019-02-12] MEDS: AZITHROMYCIN 500 MG in DEXTROSE 5% 250 ML IV SCH (08:29)
[2019-02-12] MEDS: PIPERACILLIN/TAZOBACTAM 3.375 GM in DEXTROSE 5% 100 ML IV SCH ×3 (08:29→23:54)
[2019-02-12] MEDS: METOPROLOL TARTRATE 25 MG TAB PO SCH ×2 (08:48→20:49)
[2019-02-12] MEDS: TELMISARTAN 40 MG TAB PO SCH ×2 (08:48→20:48)
[2019-02-12] MEDS: APIXABAN 2.5 MG TAB PO SCH ×2 (08:48→20:48)
[2019-02-12] MEDS: ASPIRIN 81 MG ECTAB PO SCH (08:49)
[2019-02-12] MEDS: MULTIVITAMIN TAB PO SCH (08:49)
[2019-02-12] MEDS: DOCUSATE SODIUM 100 MG CAP PO SCH ×2 (08:49→20:47)
[2019-02-12] MEDS: LOSARTAN POTASSIUM 50 MG TAB PO SCH (08:49)
--- NOTE | 2019-02-12 09:35 | XRay Report ---
XR chest 2V routine HISTORY: 88 years-old Female crackles acute shortness of breath COMPARISON: Chest radiograph 02/11/2019 TECHNIQUE: Semierect AP and lateral views of the chest FINDINGS: Cardiomegaly with dense mitral annular calcifications. Calcifications of the thoracic aortic arch. Sm all pleural effusions without pneumothorax. Bilateral mixed interstitial and alveolar opacities have progressively worsened from prior study. Degenerative changes of the shoulders and spine. IMPRESSION: 1. Cardiomegaly with progressive bilateral mixed interstitial and alveolar opacities suggestive of pu lmonary edema on a background of interstitial lung disease. Superimposed pneumonitis would be difficu lt to exclude. 2. Small bilateral pleural effusions. The above report was generated using voice recognition software. It may contain grammatical, syntax o r spelling errors. Electronically signed by: Duncan Cortez M.D. 02/12/2019 9:33 AM
[2019-02-12] MEDS ORDERED: POLYETHYLENE (MIRALAX) 17 GM PACK PO PRN (12:00)
[2019-02-12] MEDS ORDERED: SENNA 8.6 MG TAB PO PRN (12:00)
[2019-02-12] MEDS ORDERED: POTASSIUM CHLORIDE 10 MEQ TABCR PO STA (13:32)
[2019-02-12] MEDS ORDERED: FUROSEMIDE 20 MG in SYRINGE 0 ML IV ONE (14:00)
[2019-02-12] MEDS: MAGNESIUM OXIDE 400 MG TAB PO SCH (20:47)
[2019-02-12] MEDS: PRAVASTATIN SOD 20 MG TAB PO SCH (20:49)
[2019-02-12] MEDS: LATANOPROST 0.005% OP SOLN 2.5 ML BTL OPB SCH (20:50)
--- NOTE | 2019-02-12 21:22 | Hospitalist Progress Note ---
Date of Service February 12, 2019 Assessment & Plan (1) Acute respiratory failure with hypoxia: Pneumonia? CHF? both? cxr also questions if she has underling chronic lung disease - ILD? Currently on IV abx for possible b/l pneumonia. On my exam today she looks volume overloaded and cxr appears congested; treat for CHF. Present on Admission?: Yes (2) PNA (pneumonia): Concern for b/l pneumonia. Hospital stay at [facility] <90 days prior. Placed on broad-spectrum IV abx (zosyn) along with atypical coverage (zithromax). Uncertain if this is pneumonia or edema or combo. Follow clinical response. Speech eval placed to ensure no dysphagia/aspiration. Present on Admission?: Yes (3) Acute diastolic (congestive) heart failure: Appears volume overloaded clinically/radiographically. Echo 12/2018 w/ preserved EF. Thus, diastolic in nature. Lasix 20mg IV x 1 and follow response. Daily weights and BMP in am. If any question of exact etiology of lung issues recommend CT chest. Present on Admission?: Yes (4) Atrial fibrillation: Cont eliquis. Cont beta reta. Adjust beta reta if needed for optimal rate control. 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 Remains on eliquis BID. (6) Aortic valve vegetation: small vegetation 12/2018 echo. consider repeat echo if any positive blood culture, etc. (7) Dysphagia: speech therapy eval appreciated soft bite sized texture for solids (8) Hypothyroid: TSH yesterday compensated cont synthroid (9) Chronic kidney disease, stage 3a: Cr stable and at baseline (10) Hypertension: elevated add nitropaste 1 inch q6h; this should help enhance diuresis ultimately would titrate beta reta (11) Cognitive impairment: baseline mental status? records suggest "short term memory" loss. suspect, at least, mild cognitive impairment. follow. (12) DVT prophylaxis: eliquis PT, OT evals Subjective pt sleeping upon arrival. easily awakens. could not tell me much in way of history. did not know date/year. denied dyspnea or cough. eating fair. Review of Systems Review of Systems: Unobtainable due to cognitive status Physical Exam Constitutional: well developed, well nourished and + altered mental status; no acute distress ENMT: external ear and nose normal, oropharynx normal Respiratory: Auscultation: + crackles (extensive - b/l - anterior chest and posterior chest ) Cardiovascular: Rate/Rhythm: + tachycardic and + irregularly irregular Heart Sounds: normal S1, normal S2 and + murmur (2/6 LLSB) Vessels: + JVD, posterior tibial pulses present and dorsalis pedis pulses present Extremities: + edema (1+b/l) Gastrointestinal (Abdomen): normal bowel sounds, soft, nontender, no hep atosplenomegaly Psychiatric: Orientation: alert and oriented to person; + not oriented to place and + not oriented to time Results & Data Vital Signs (Past 12 Hours) Vital Signs Temp Pulse Resp BP Pulse Ox 02/12/19 16:58 36.5 C 75 24 178/101 H 100 Laboratory Results Laboratory Results - last 24 hr 02/12/19 02/12/19 02/12/19 06:55 06:55 06:55 WBC 8.21 RBC 3.42 L Hgb 10.3 L Hct 32.1 L MCV 93.9 MCH 30.1 MCHC 32.1 RDW Std Deviation 51.6 H RDW Coeff of Nicole 15.2 H Plt Count 266 MPV 9.1 Immature Gran % (Auto) 0.4 Neut % (Auto) 59.1 Lymph % (Auto) 26.7 Mclennan % (Auto) 6.7 Eos % (Auto) 6.5 Baso % (Auto) 0.6 Immature Gran # (Auto) 0.03 H Neut # (Auto) 4.86 Lymph # (Auto) 2.19 Mclennan # (Auto) 0.55 Eos # (Auto) 0.53 H Baso # (Auto) 0.05 Sodium 141 Potassium 3.6 Chloride 111 H Carbon Dioxide 22 Anion Gap 8.0 BUN 17 Creatinine 0.94 Est Cr Clr Drug Dosing 36.8 Est GFR ( Amer) 62.8 Est GFR (Non-Af Amer) 54.2 BUN/Creatinine Ratio 18.2 Glucose 93 Calcium 8.2 L Total Bilirubin 1.1 H AST 20 ALT 15 Alkaline Phosphatase 76 NT-Pro-B Natriuret Pep 3824 H Total Protein 6.3 L Albumin 2.6 L Globulin 3.7 Albumin/Globulin Ratio 0.7 L Procalcitonin < 0.05 Diagnostic Findings cxr - worsening infiltrates - pulm edema? (1) PNA (pneumonia) Laterality: right Lung location: lower lobe of lung Pneumonia type: due to unspecified organism Qualified Code(s): J18.1 - Lobar pneumonia, unspecified organism (2) Atrial fibrillation Atrial fibrillation type: permanent Qualified Code(s): I48.2 - Chronic atrial fibrillation (3) Cerebrovascular accident, embolic Precerebral and cerebral artery: unspecified cerebral artery Qualified Code(s): I63.40 - Cerebral infarction due to embolism of unspecified cerebral artery (4) Dysphagia Dysphagia type: unspecified Qualified Code(s): R13.10 - Dysphagia, unspecified (5) Hypothyroid Hypothyroidism type: acquired Qualified Code(s): E03.9 - Hypothyroidism, unspecified (6) Hypertension Hypertension type: unspecified Qualified Code(s): I10 - Essential (primary) hypertension
[2019-02-12] MEDS: NITROGLYCERIN 2% OINTMENT 30GM TUBE EXT SCH (21:41)
[2019-02-13] MEDS: LEVOTHYROXINE SODIUM 75 MCG TABLET PO SCH (06:07)
[2019-02-13] MEDS: NITROGLYCERIN 2% OINTMENT 30GM TUBE EXT SCH ×3 (06:13→19:58)
[2019-02-13 07:20] LABS: Hematocrit (blood only) 32.6 % (37-47); Mean Corpuscular Hgb Conc 33.7 g/dL (32-36); Mean Corpuscular Volume 92.1 fL (80-100); Platelet Count 257 K/uL (130-400); RDW Coefficient of Variation 14.8 % (11.5-14.5); Red Blood Count 3.54 M/uL (4.2-5.4); White Blood Count 10.05 K/uL (4.8-10.8)
[2019-02-13 07:54] LABS: BUN Creatinine Ratio 19.2 (10-20); Calcium 8.6 mg/dl (8.5-10.1); Creatinine Clr Calc Pharmacy 35.3 ml/min; Est GFR (African American) 59.7; Est GFR (Non-African American) 51.5; Magnesium 1.9 mg/dl (1.8-2.4); Potassium 3.5 mmol/L (3.5-5.1)
[2019-02-13] MEDS: [UNRECOGNIZED DRUG - OTHER] SCH ×3 (08:41→23:09)
[2019-02-13] MEDS: TELMISARTAN 40 MG TAB PO SCH ×2 (08:42→19:43)
[2019-02-13] MEDS: MAGNESIUM OXIDE 400 MG TAB PO SCH ×2 (08:42→19:44)
[2019-02-13] MEDS: ASPIRIN 81 MG ECTAB PO SCH (08:43)
[2019-02-13] MEDS: METOPROLOL TARTRATE 25 MG TAB PO SCH (08:43)
[2019-02-13] MEDS: LOSARTAN POTASSIUM 50 MG TAB PO SCH (08:44)
[2019-02-13] MEDS: APIXABAN 2.5 MG TAB PO SCH ×2 (08:44→19:44)
[2019-02-13] MEDS: MULTIVITAMIN TAB PO SCH (08:45)
[2019-02-13] MEDS: DOCUSATE SODIUM 100 MG CAP PO SCH ×2 (08:45→19:42)
[2019-02-13] MEDS: PIPERACILLIN/TAZOBACTAM 3.375 GM in DEXTROSE 5% 100 ML IV SCH ×3 (08:52→23:09)
[2019-02-13] MEDS: AZITHROMYCIN 500 MG in DEXTROSE 5% 250 ML IV SCH (08:53)
--- NOTE | 2019-02-13 09:34 | Hospitalist Progress Note ---
Date of Service February 13, 2019 Assessment & Plan (1) Acute respiratory failure with hypoxia: Pneumonia? perhaps some interstitial lung disease, treating for CAP and will follow clinical course while on zosyn and azithromycin initially also given some diuretics on presentation (2) PNA (pneumonia): Concern for b/l pneumonia. Hospital stay at [facility] <90 days prior. Placed on broad-spectrum IV abx (zosyn) along with atypical coverage (zithromax). Speech eval to evaluate dysphagia/aspiration. (3) Acute diastolic (congestive) heart failure: Appears volume overloaded clinically/radiographically. Echo 12/2018 w/ preserved EF. Thus, HFpEF improved after one dose of lasix 20 mg (4) Atrial fibrillation: Cont eliquis. Cont beta reta. 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 Remains on eliquis BID. (6) Aortic valve vegetation: small vegetation 12/2018 echo. consider repeat echo if any positive blood culture, etc. (7) Dysphagia: speech therapy eval appreciated soft bite sized texture for solids (8) Hypothyroid: TSH compensated cont synthroid (9) Chronic kidney disease, stage 3a: Cr stable and at baseline (10) Hypertension: elevated titrate beta reta 02/13 (11) Cognitive impairment: baseline mental status? records suggest "short term memory" loss. suspect, at least, mild cognitive impairment. follow. (12) DVT prophylaxis: eliquis PT, OT evals Subjective Patient states she is feeling somewhat better she is slightly fatigued and was sleeping upon arrival. She does have a cough which is nonproductive on my evaluation Review of Systems Review of Systems: ROS: well nourished well developed. No double vision blurry vision No problems with speech or swallowing No palpitations, chest pain or pressure Patient has a nonproductive cough No abdominal pain nausea vomiting diarrhea changes in appetite or weight No burning urine urine frequency or changes in color No focal joint pain or muscle pain No skin rashes or oral lesions No unusual bruising or bleeding No focused back pain or numbness or loss of strength seemingly has some memory loss Physical Exam Physical Exam: The patient appeared well nourished and normally developed. Vital signs as documented. Head exam is unremarkable. normocephalic, atraumatic Neck is without jugular venous distension, thyromegaly, or lymphademopathy Lungs are more focused rales at the left base Cardiac exam reveals Rhythm is regular. First and second heart sounds normal. Abdominal exam reveals normal bowel sounds, no masses, no organomegaly Extremities are nonedematous and both pedal pulses are present Neurologic exam is A&Ox2, no focal deficits, strength is equal bilateral Psychologically seems anxious and may be depressed Skin is warm Dry Results & Data Vital Signs (Past 12 Hours) Vital Signs Temp Pulse Resp BP Pulse Ox 02/13/19 06:12 36.4 C L 80 18 166/103 H 99 02/12/19 23:30 36.6 C 106 H 20 157/81 H 93 (1) Atrial fibrillation Atrial fibrillation type: permanent Qualified Code(s): I48.2 - Chronic atrial fibrillation (2) Dysphagia Dysphagia type: unspecified Qualified Code(s): R13.10 - Dysphagia, unspecifi ed (3) Hypothyroid Hypothyroidism type: acquired Qualified Code(s): E03.9 - Hypothyroidism, unspecified (4) Cerebrovascular accident, embolic Precerebral and cerebral artery: unspecified cerebral artery Qualified Code(s): I63.40 - Cerebral infarction due to embolism of unspecified cerebral artery (5) Hypertension Hypertension type: unspecified Qualified Code(s): I10 - Essential (primary) hypertension (6) PNA (pneumonia) Laterality: right Lung location: lower lobe of lung Pneumonia type: due to unspecified organism Qualified Code(s): J18.1 - Lobar pneumonia, unspecified organism
[2019-02-13] MEDS ORDERED: METOPROLOL TARTRATE 25 MG TAB PO ONE (09:45)
[2019-02-13] MEDS ORDERED: cloNIDine HCl 0.1 MG TAB PO PRN (19:08)
[2019-02-13] MEDS ORDERED: HydrALAZINE HCL 20 MG/ML VIAL IV PRN (19:08)
[2019-02-13] MEDS: METOPROLOL TARTRATE 50 MG TAB PO SCH (19:44)
[2019-02-13] MEDS: PRAVASTATIN SOD 20 MG TAB PO SCH (19:45)
[2019-02-13] MEDS: LATANOPROST 0.005% OP SOLN 2.5 ML BTL OPB SCH (19:45)
[2019-02-14] MEDS: LEVOTHYROXINE SODIUM 75 MCG TABLET PO SCH (05:53)
[2019-02-14 07:25] LABS: Creatinine Clr Calc Pharmacy 33.6 ml/min; Est GFR (African American) 56.2; Est GFR (Non-African American) 48.5
[2019-02-14] MEDS: [UNRECOGNIZED DRUG - OTHER] SCH ×3 (08:23→23:56)
[2019-02-14] MEDS: APIXABAN 2.5 MG TAB PO SCH ×2 (08:35→21:41)
[2019-02-14] MEDS: TELMISARTAN 40 MG TAB PO SCH ×2 (08:35→21:39)
[2019-02-14] MEDS: LOSARTAN POTASSIUM 50 MG TAB PO SCH (08:35)
[2019-02-14] MEDS: MULTIVITAMIN TAB PO SCH (08:35)
[2019-02-14] MEDS: MAGNESIUM OXIDE 400 MG TAB PO SCH ×2 (08:35→21:39)
[2019-02-14] MEDS: METOPROLOL TARTRATE 50 MG TAB PO SCH ×2 (08:35→21:39)
[2019-02-14] MEDS: PIPERACILLIN/TAZOBACTAM 3.375 GM in DEXTROSE 5% 100 ML IV SCH ×2 (08:36→15:39)
[2019-02-14] MEDS: DOCUSATE SODIUM 100 MG CAP PO SCH ×2 (08:36→21:37)
[2019-02-14] MEDS: ASPIRIN 81 MG ECTAB PO SCH (08:36)
[2019-02-14] MEDS ORDERED: AZITHROMYCIN SUSP 200 MG/5 ML 22.5 ML PO SCH (09:00)
--- NOTE | 2019-02-14 14:55 | Fluoroscopy Report ---
FL video swallow CLINICAL HISTORY: 88 years-old Female presenting with assess for aspiration. TECHNIQUE: Video fluoroscopic evaluation of swallowing was performed in the AP and lateral projection s in conjunction with speech pathology. The patient was administered various textures, including nect ar-thick and thin liquid barium, a barium coated wafer, and barium pudding. COMPARISON: 12/19/2018. FINDINGS: Limited evaluation of the esophagus demonstrates intraesophageal reflux and esophageal dysmotility. Normal oral transit, including normal tongue-soft palate seal. Overall normal soft palate-superior co nstrictor muscle seal with only trace intermittent nasopharyngeal regurgitation. Normal oral transpor t/propulsion of the food bolus. Normal hyoid elevation and epiglottic deflection. Pharyngeal bolus re sidual in the valleculae and piriform sinuses with putting consistency, which cleared with administra tion of thin liquids. None of the administered textures resulted in laryngeal penetration within the laryngeal vestibule. N one of the administered textures resulted in aspiration of barium contrast below the level of the wilder e vocal folds. Fluoroscopy dosage (mGy): Not available. Fluoroscopy time: 2.2 minutes. Number or time of high level fluoroscopy (HLF), digital spot, or digital subtraction images: 0. IMPRESSION: 1. No penetration or aspiration identified. 2. Intraesophageal reflux and esophageal dysmotility. 3. Please see the speech pathologist report for detailed findings and recommendations. Electronically signed by: Kenyon Brannon M.D. 02/14/2019 2:53 PM
--- NOTE | 2019-02-14 18:04 | Hospitalist Progress Note ---
Date of Service February 14, 2019 Assessment & Plan (1) Acute respiratory failure with hypoxia: Pneumonia? perhaps some interstitial lung disease, treating for CAP and will follow clinical course while on zosyn and azithromycin initially also given some diuretics on presentation (2) PNA (pneumonia): Concern for b/l pneumonia. Hospital stay at [facility] <90 days prior. Placed on broad-spectrum IV abx (zosyn) along with atypical coverage (zithromax). Speech eval to evaluate dysphagia/aspiration. (3) Acute diastolic (congestive) heart failure: Appears volume overloaded clinically/radiographically. Echo 12/2018 w/ preserved EF. Thus, HFpEF improved after one dose of lasix 20 mg (4) Atrial fibrillation: Cont eliquis. Cont beta reta. 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 Remains on eliquis BID. (6) Aortic valve vegetation: small vegetation 12/2018 echo. consider repeat echo if any positive blood culture, etc. (7) Dysphagia: speech therapy eval appreciated soft bite sized texture for solids (8) Hypothyroid: TSH compensated cont synthroid (9) Chronic kidney disease, stage 3a: Cr stable and at baseline (10) Hypertension: elevated titrate beta reta 02/13 (11) Cognitive impairment: baseline mental status? records suggest "short term memory" loss. suspect, at least, mild cognitive impairment. follow. (12) DVT prophylaxis: eliquis PT, OT evals Subjective Patient states she feels back to her normal state she is still not ambulating well Review of Systems Review of Systems: ROS: well nourished well developed. No double vision blurry vision No problems with speech or swallowing No palpitations, chest pain or pressure No Wheezing or breathing issues No abdominal pain nausea vomiting diarrhea changes in appetite or weight No burning urine urine frequency or changes in color No focal joint pain or muscle pain No skin rashes or oral lesions No unusual bruising or bleeding No focused back pain or numbness or loss of strength No changes in memory or confusion Physical Exam Physical Exam: ROS: Patient is slightly sedate and bradykinetic Vital signs as documented. Head exam is unremarkable. normocephalic, atraumatic Neck is without jugular venous distension, thyromegaly, or lymphademopathy Lungs are clear to auscultation and percussion. Cardiac exam reveals Rhythm is regular. First and second heart sounds normal. Abdominal exam reveals normal bowel sounds, no masses, no organomegaly Extremities are nonedematous and both pedal pulses are present Neurologic exam is A&Ox2, no focal deficits, strength is equal bilateral Psychologically seems neither anxious or depressed Skin is warm Dry without bruises or lesions Patient is not oriented to time Results & Data Vital Signs (Past 12 Hours) Vital Signs Temp Pulse Resp BP Pulse Ox 02/14/19 07:24 36.3 C L 63 20 167/95 H 96 (1) Atrial fibrillation Atrial fibrillation type: permanent Qualified Code(s): I48.2 - Chronic atrial fibrillation (2) Dysphagia Dysphagia type: unspecified Qualified Code(s): R13.10 - Dysphagia, unspecified (3) Hypothyroid Hypothyroidism type: acquired Qualified Code(s): E03.9 - Hypothyroidism, unspecified (4) Cerebrovascular accident, embolic Precerebral and cerebral artery: unspecified cerebral artery Qualified Code(s): I63.40 - Cerebral infarction due to embolism of unspecified cerebral artery (5) Hypertension Hypertension type: unspecified Qualified Code(s): I10 - Essential (primary) hypertension (6) PNA (pneumonia) Laterality: right Lung location: lower lobe of lung Pneumonia type: due to unspecified organism Qualified Code(s): J18.1 - Lobar pneumonia, unspecified organism
[2019-02-14] MEDS: AMOXICILLIN 500 MG CAP PO SCH (21:35)
[2019-02-14] MEDS: PRAVASTATIN SOD 20 MG TAB PO SCH (21:37)
[2019-02-14] MEDS: LATANOPROST 0.005% OP SOLN 2.5 ML BTL OPB SCH (21:38)
[2019-02-15] MEDS: AMOXICILLIN 500 MG CAP PO SCH ×3 (05:05→21:46)
[2019-02-15] MEDS: LEVOTHYROXINE SODIUM 75 MCG TABLET PO SCH (06:12)
[2019-02-15 06:14] LABS: Creatinine Clr Calc Pharmacy 40.7 ml/min; Est GFR (African American) 70.9; Est GFR (Non-African American) 61.2
[2019-02-15] MEDS: ASPIRIN 81 MG ECTAB PO SCH (08:15)
[2019-02-15] MEDS: DOCUSATE SODIUM 100 MG CAP PO SCH ×2 (08:15→21:55)
[2019-02-15] MEDS: METOPROLOL TARTRATE 50 MG TAB PO SCH ×2 (08:15→21:46)
[2019-02-15] MEDS: TELMISARTAN 40 MG TAB PO SCH ×2 (08:15→21:46)
[2019-02-15] MEDS: LOSARTAN POTASSIUM 50 MG TAB PO SCH (08:15)
[2019-02-15] MEDS: MAGNESIUM OXIDE 400 MG TAB PO SCH ×2 (08:15→21:46)
[2019-02-15] MEDS: MULTIVITAMIN TAB PO SCH (08:15)
[2019-02-15] MEDS: APIXABAN 2.5 MG TAB PO SCH ×2 (08:16→21:46)
[2019-02-15] MEDS: [UNRECOGNIZED DRUG - OTHER] SCH ×3 (08:16→23:41)
[2019-02-15] MEDS ORDERED: ALBUT/IPRATROP 3MG/0.5MG NEB 3 ML VIAL NEB STA (12:56)
[2019-02-15] MEDS: ALBUT/IPRATROP 3MG/0.5MG NEB 3 ML VIAL NEB SCH ×2 (15:19→18:59)
--- NOTE | 2019-02-15 16:05 | XRay Report ---
XR chest 1V portable HISTORY: 88 years-old Female eval for HF or pneumonia acute shortness of breath COMPARISON: Chest radiograph 02/12/2019, 02/11/2019 and 02/01/2015 TECHNIQUE: Portable AP view the chest FINDINGS: Cardiac silhouette is enlarged, unchanged. Calcification of the thoracic aortic arch. Coarse calcific ations of the mitral annulus. Mild blunting of the costophrenic angles persists. No large pleural eff usion. Pulmonary vascular congestion is suggested. There is slightly improved aeration of the lungs w ith persistent bilateral interstitial opacities. Changes of the shoulders and spine. Enteric contrast is noted within bowel of the left upper quadrant IMPRESSION: 1. Mildly improved aeration of the lungs with persistent bilateral interstitial opacities suggestive of mild pulmonary edema or pneumonitis on a background of chronic fibrosis. 2. Cardiomegaly. 3. Suggestion of trace pleural effusions. The above report was generated using voice recognition software. It may contain grammatical, syntax o r spelling errors. Electronically signed by: Duncan Cortez M.D. 02/15/2019 4:04 PM
--- NOTE | 2019-02-15 16:33 | Hospitalist Progress Note ---
Date of Service February 15, 2019 Assessment & Plan (1) Acute respiratory failure with hypoxia: acute on chronic lung disease perhaps some interstitial lung disease, pt was deescalated to amoxil to cover strep in urine and adding duonebs and steroids initially also given some diuretics on presentation pt seems to still have some oxygen requirements so will see if she improved with treatments (2) PNA (pneumonia): Concern for b/l pneumonia, this has been ruled out, mayhave some chronic interstitial lung disease Hospital stay at [facility] <90 days prior. Speech eval feels some esophageal reflux but only employ good bedside aspiration techniques (3) Acute diastolic (congestive) heart failure: Appears volume overloaded clinically/radiographically. Echo 12/2018 w/ preserved EF. Thus, HFpEF improved after one dose of lasix 20 mg (4) Atrial fibrillation: Cont eliquis. Cont beta reta. 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 Remains on eliquis BID. (6) Aortic valve vegetation: small vegetation 12/2018 echo. consider repeat echo if any positive blood culture, etc. (7) Dysphagia: speech therapy eval appreciated soft bite sized texture for solids (8) Hypothyroid: TSH compensated cont synthroid (9) Chronic kidney disease, stage 3a: Cr stable and at baseline (10) Hypertension: elevated titrate beta reta 02/13 (11) Cognitive impairment: baseline mental status? records suggest "short term memory" loss. suspect, at least, mild cognitive impairment. follow. (12) DVT prophylaxis: eliquis PT, OT evals Subjective He was doing fairly well today however in the afternoon she developed a wheezing episode shortly after lunch. She was observed eating lunch by the nurse and did not appear to have any aspiration events. The chest x-ray was performed there are any new changes she does have some concern for interstitial changes which may be chronic. Patient was placed on duo nebs and steroids attempt to improve her ventilation. On examination at the time she did extra Tory wheezing prolonged expiratory phase almost consistent with what you would consider COPD although she has no significant tobacco exposure only secondhand tobacco exposure from her Currently she is resting more comfortably Review of Systems Review of Systems: ROS: well nourished well developed. No double vision blurry vision No problems with speech or swallowing No palpitations, chest pain or pressure All the paroxysmal shortness of breath and wheezing after eating lunch No abdominal pain nausea vomiting diarrhea changes in appetite or weight No burning urine urine frequency or changes in color No focal joint pain or muscle pain No skin rashes or oral lesions No unusual bruising or bleeding No focused back pain or numbness or loss of strength No changes in memory or confusion Physical Exam Physical Exam: The patient appeared well nourished and normally developed. Vital signs as documented. Head exam is unremarkable. normocephalic, atraumatic Neck is without jugular venous distension, thyromegaly, or lymphademopathy Lungs are depressed air movement expiratory wheezes and basilar rales Cardiac exam reveals Rhythm is regular. Systolic ejection murmurs heard Abdominal exam reveals normal bowel sounds, no masses, no organomegaly Extremities are nonedematous and both pedal pulses are present Neurologic exam is A&Ox2, no focal deficits, strength is equal bilateral Psychologically seems neither anxious or depressed mildly confused at times Skin is warm Dry without bruises or lesions Results & Data Vital Signs (Past 12 Hours) Vital Signs Temp Pulse Resp BP Pulse Ox 02/15/19 16:14 36.5 C 69 22 136/80 98 02/15/19 15:19 66 18 94 02/15/19 13:07 74 20 98 02/15/19 11:08 94 02/15/19 11:00 83 L 02/15/19 08:10 97 02/15/19 07:13 36.4 C L 63 20 140/95 92 (1) Atrial fibrillation Atrial fibrillation type: permanent Qualified Code(s): I48.2 - Chronic atrial fibrillation (2) Dysphagia Dysphagia type: unspecified Qualified Code(s): R13.10 - Dysphagia, unspecified (3) Hypothyroid Hypothyroidism type: acquired Qualified Code(s): E03.9 - Hypothyroidism, unspecified (4) Cerebrovascular accident, embolic Precerebral and cerebral artery: unspecified cerebral artery Qualified Code(s): I63.40 - Cerebral infarction due to embolism of unspecified cerebral artery (5) Hypertension Hypertension type: unspecified Qualified Code(s): I10 - Essential (primary) hypertension (6) PNA (pneumonia) Laterality: right Lung location: lower lobe of lung Pneumonia type: due to unspecified organism Qualified Code(s): J18.1 - Lobar pneumonia, unspecified organism
[2019-02-15] MEDS: methylPREDNISolone 40 MG in SYRINGE 0 ML IV SCH (21:40)
[2019-02-15] MEDS: LATANOPROST 0.005% OP SOLN 2.5 ML BTL OPB SCH (21:42)
[2019-02-15] MEDS: PRAVASTATIN SOD 20 MG TAB PO SCH (21:46)
[2019-02-16] MEDS: LEVOTHYROXINE SODIUM 75 MCG TABLET PO SCH (05:45)
[2019-02-16] MEDS: AMOXICILLIN 500 MG CAP PO SCH ×3 (05:45→21:47)
[2019-02-16] MEDS ORDERED: FUROSEMIDE 10 MG in SYRINGE 0 ML IV ONE (07:30)
[2019-02-16] MEDS: ALBUT/IPRATROP 3MG/0.5MG NEB 3 ML VIAL NEB SCH ×4 (07:34→18:50)
[2019-02-16] MEDS: LOSARTAN POTASSIUM 50 MG TAB PO SCH (07:48)
[2019-02-16] MEDS: ASPIRIN 81 MG ECTAB PO SCH (07:49)
[2019-02-16] MEDS: METOPROLOL TARTRATE 50 MG TAB PO SCH ×2 (07:49→21:47)
[2019-02-16] MEDS: MULTIVITAMIN TAB PO SCH (07:49)
[2019-02-16] MEDS: MAGNESIUM OXIDE 400 MG TAB PO SCH ×2 (07:49→21:47)
[2019-02-16] MEDS: TELMISARTAN 40 MG TAB PO SCH ×2 (07:49→21:47)
[2019-02-16] MEDS: methylPREDNISolone 40 MG in SYRINGE 0 ML IV SCH ×2 (07:49→21:45)
[2019-02-16] MEDS: APIXABAN 2.5 MG TAB PO SCH ×2 (07:49→21:47)
[2019-02-16] MEDS: [UNRECOGNIZED DRUG - OTHER] SCH ×2 (10:45→16:08)
[2019-02-16] MEDS: DOCUSATE SODIUM 100 MG CAP PO SCH ×2 (12:23→22:36)
--- NOTE | 2019-02-16 16:44 | Hospitalist Progress Note ---
Date of Service February 16, 2019 Assessment & Plan (1) Acute respiratory failure with hypoxia: acute on chronic lung disease perhaps some interstitial lung disease, pt was deescalated to amoxil to cover strep in urine and adding duonebs and steroids initially also given some diuretics on presentation pt seems to still have some oxygen requirements will check CT chest and taper steroids to po (2) PNA (pneumonia): Concern for b/l pneumonia, this has been ruled out, mayhave some chronic interstitial lung disease check CT Hospital stay at [facility] <90 days prior. Speech eval feels some esophageal reflux but only employ good bedside aspiration techniques (3) Acute diastolic (congestive) heart failure: Appears volume overloaded clinically/radiographically. Echo 12/2018 w/ preserved EF. Thus, HFpEF improved after one dose of lasix 20 mg (4) Atrial fibrillation: Cont eliquis. Cont beta reta. 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 Remains on eliquis BID. (6) Aortic valve vegetation: small vegetation 12/2018 echo. consider repeat echo if any positive blood culture, etc. (7) Dysphagia: speech therapy eval appreciated soft bite sized texture for solids (8) Hypothyroid: TSH compensated cont synthroid (9) Chronic kidney disease, stage 3a: Cr stable and at baseline (10) Hypertension: elevated titrate beta reta 02/13 (11) Cognitive impairment: baseline mental status? records suggest "short term memory" loss. suspect, at least, mild cognitive impairment. (12) DVT prophylaxis: eliquis PT, OT evals Subjective Patient is typical states she is in good condition. She has no complaints or problems. However she is now requiring oxygen. Both at rest and with exertion. Chest x-ray changes this suggest possible interstitial changes in her lung she has responded somewhat to steroids or bronchodilators but not with respect to her hypoxia Review of Systems Review of Systems: ROS: well nourished well developed. No double vision blurry vision No problems with speech or swallowing No palpitations, chest pain or pressure No Wheezing or breathing issues No abdominal pain nausea vomiting diarrhea changes in appetite or weight No burning urine urine frequency or changes in color No focal joint pain or muscle pain No skin rashes or oral lesions No unusual bruising or bleeding No focused back pain or numbness or loss of strength Baseline changes with mild confusion are noted during exam Physical Exam Physical Exam: The patient appeared well nourished and normally developed. Vital signs as documented. Head exam is unremarkable. normocephalic, atraumatic Neck is without jugular venous distension, thyromegaly, or lymphademopathy Lungs are basilar crackles Cardiac exam reveals Rhythm is regular. First and second heart sounds normal. Abdominal exam reveals normal bowel sounds, no masses, no organomegaly Extremities are nonedematous and both pedal pulses are present Neurologic exam is A&Ox2, no focal deficits, strength is equal bilateral Psychologically seems neither anxious or depressed Skin is warm Dry without bruises or lesions Results & Data Vital Signs (Past 12 Hours) Vital Signs Temp Pulse Pulse Pulse Pulse Pulse Pulse 02/16/19 16:05 36.4 C L 02/16/19 14:52 02/16/19 11:55 74 89 92 H 78 67 86 02/16/19 11:26 02/16/19 07:52 36.3 C L 02/16/19 07:47 02/16/19 07:34 Pulse Resp Resp Resp Resp Resp Resp 02/16/19 16:05 83 18 02/16/19 14:52 69 16 02/16/19 11:55 22 22 20 24 20 02/16/19 11:26 78 18 02/16/19 07:52 81 18 02/16/19 07:47 73 02/16/19 07:34 75 18 Resp BP Pulse Ox Pulse Ox Pulse Ox Pulse Ox Pulse Ox 02/16/19 16:05 131/85 98 02/16/19 14:52 91 02/16/19 11:55 18 95 86 L 90 85 L 02/16/19 11:26 90 02/16/19 07:52 133/82 98 02/16/19 07:47 139/87 02/16/19 07:34 98 Pulse Ox Pulse Ox 02/16/19 16:05 02/16/19 14:52 02/16/19 11:55 92 86 L 02/16/19 11:26 02/16/19 07:52 02/16/19 07:47 02/16/19 07:34 PG Care Time/CCT Total # of Minutes Spent Total Time Spent with Patient: Total time spent is greater than 50% in coordination of care (as documented) at patient's floor/unit and/or counseling patient: (1) Atrial fibrillation Atrial fibrillation type: permanent Qualified Code(s): I48.2 - Chronic atrial fibrillation (2) Dysphagia Dysphagia type: unspecified Qualified Code(s): R13.10 - Dysphagia, unspecified (3) Hypothyroid Hypothyroidism type: acquired Qualified Code(s): E03.9 - Hypothyroidism, unspecified (4) Cerebrovascular accident, embolic Precerebral and cerebral artery: unspecified cerebral artery Qualified Code(s): I63.40 - Cerebral infarction due to embolism of unspecified cerebral artery (5) Hypertension Hypertension type: unspecified Qualified Code(s): I10 - Essential (primary) hypertension (6) PNA (pneumonia) Laterality: right Lung location: lower lobe of lung Pneumonia type: due to unspecified organism Qualified Code(s): J18.1 - Lobar pneumonia, unspecified organism
--- NOTE | 2019-02-16 17:36 | CT Scan Report ---
CT chest wo con CLINICAL HISTORY: 88 years-old Female presenting with eval for pulmonary fibrosis. TECHNIQUE: Multidetector CT imaging of the chest was performed without the use of intravenous contras t. IV contrast: None. One or more dose lowering techniques were used consistent with the principles o f ALARA (as low as reasonably achievable), including automatic exposure control, mA or kV adjustment to individual patient size, and/or use of iterative reconstruction. COMPARISON: Chest x-ray from yesterday. CT DOSE (mGy.cm): The estimated cumulative dose is 350.60 mGycm. FINDINGS: Twitchell Operator topogram: Oral contrast in the colon noted. Soft tissues: Normal thyroid and thoracic inlet. Multiple enlarged mediastinal lymph nodes. An index precarinal node measures 11 mm in the short axis. Lymph nodes are predominantly in the right peritrac heal and precarinal regions. Bilateral hilar lymphadenopathy may also be present though the anjum are suboptimally evaluated without intravenous contrast. Atherosclerosis of the aorta. Multichamber enlar gement of the heart. Coronary artery, aortic valve, and mitral annular calcification. Small bilateral pleural effusions, which are simple appearing. Oral contrast noted in the colon. Small hiatal hernia . Lungs and airways: Extensive reticular opacities, which are fairly basilar predominant. Interlobular septal thickening is noted diffusely though most prominently at the lung bases. There are additional patchy solid and groundglass opacities that appear superimposed on chronic change in the right upper lobe primarily. Mosaic attenuation may suggest small airways disease. No significant subpleural spari ng. Patchy peribronchovascular opacities. Central airways patent. Subtle bronchiectasis is evident be st appreciated on minimum intensity projection reconstructions. Pulmonary arteries are not significan tly enlarged relative to adjacent bronchi. Musculoskeletal: Degenerative changes of the spine. IMPRESSION: 1. Diffuse basilar predominant fibrotic lung disease. This is not a usual interstitial pneumonia pat tern. Findings may suggest nonspecific interstitial pneumonia among other etiologies for fibrotic nelsy g disease. 2. Findings raise concern for superimposed infiltrates in the right upper lobe concerning for either pneumonia or active phase of fibrosis. 3. Small bilateral pleural effusions. 4. Cardiomegaly. No glendy pulmonary edema. 5. Mediastinal and suspected hilar lymphadenopathy. Attention on follow-up. Given the chronic lung d isease, this is likely reactive. Electronically signed by: Kenyon Brannon M.D. 02/16/2019 5:35 PM
[2019-02-16] MEDS: LATANOPROST 0.005% OP SOLN 2.5 ML BTL OPB SCH (20:21)
[2019-02-16] MEDS: PRAVASTATIN SOD 20 MG TAB PO SCH (21:47)
[2019-02-17] MEDS: [UNRECOGNIZED DRUG - OTHER] SCH ×2 (00:22→09:24)
[2019-02-17] MEDS: AMOXICILLIN 500 MG CAP PO SCH (06:15)
[2019-02-17] MEDS: LEVOTHYROXINE SODIUM 75 MCG TABLET PO SCH (06:16)
[2019-02-17] MEDS: ALBUT/IPRATROP 3MG/0.5MG NEB 3 ML VIAL NEB SCH ×3 (06:51→15:52)
[2019-02-17] MEDS ORDERED: LEVOFLOXACIN/D5W 750 MG/150 ML BAG IV SCH (09:00)
[2019-02-17] MEDS: LOSARTAN POTASSIUM 50 MG TAB PO SCH (09:24)
[2019-02-17] MEDS: APIXABAN 2.5 MG TAB PO SCH (09:24)
[2019-02-17] MEDS: ASPIRIN 81 MG ECTAB PO SCH (09:24)
[2019-02-17] MEDS: DOCUSATE SODIUM 100 MG CAP PO SCH (09:25)
[2019-02-17] MEDS: MAGNESIUM OXIDE 400 MG TAB PO SCH (09:25)
[2019-02-17] MEDS: MULTIVITAMIN TAB PO SCH (09:25)
[2019-02-17] MEDS: methylPREDNISolone 40 MG in SYRINGE 0 ML IV SCH (09:25)
[2019-02-17] MEDS: TELMISARTAN 40 MG TAB PO SCH (09:25)
[2019-02-17] MEDS: METOPROLOL TARTRATE 50 MG TAB PO SCH (09:25)
--- NOTE | 2019-02-17 12:46 | Discharge Summary ---
Date of Service February 17, 2019 Admission HPI Per Admitting Provider Patient is a pleasant 88yo F PMH CVA, pAFib, HTN, HLD, Hypothyroid, urinary incontinence presents with sons from [facility] for increased confusion in the past 24 hours. Patient has residual confusion and short term memory loss from CVA, but staff and sons noted an acute change from yesterday to today. Patient also has residual issues with aspiration from prior CVA. Sons took her to [facility] as she has frequent UTIs, but [facility] suggested they come to the hospital. On arrival, she was pleasant but acutely confused, with sats in the low 90s and some mild increase work of breathing. She was hypertensive. WBC of 12,000. UA dirty. Patient unable to contribute to HPI as she is "unsure" of most questions I ask. She denies chest pain, states her cough has been here "a while" and that she may have been having some discomfort while urinating. Disoriented. CXR shows some reticulonodular findings, some possible opacification, pleural effusion. CT head negative. She was dosed with vanc and zosyn. Principal Diagnosis pneumoinits uti poa metabolic encephalopathy Discharge Exam Respiratory normal respiratory effort and + hyperresonance to percussion Auscultation: + wheezes Cardiovascular Rate/Rhythm: regular rate Heart Sounds: + murmur Gastrointestinal (Abdomen) Inspection/Auscultation: abdomen normal to inspection, + abdomen distended and normal bowel sounds Discharge Data Allergies Allergy/AdvReac Type Severity Reaction Status Date / Time No Known Allergies Allergy Unverified 02/11/19 17:25 Consultations 02/11/19 18:17 ED Decision to Admit Stat Ordered Studies 02/11/19 17:02 CT head/brain wo con Stat 02/14/19 13:30 FL video swallow Routine 02/16/19 16:44 CT chest wo con Routine Hospital Course (1) Acute respiratory failure with hypoxia: acute on chronic lung disease perhaps some interstitial lung disease, pt was initiated on prednisone, levaquin and combivent respimat, will be on home oxygen and will follow up closely with out pt provider initially also given some diuretics on presentation needs good aspiration precautions (2) PNA (pneumonia): Concern for b/l pneumonia, this has been ruled out, mayhave some chronic interstitial lung disease check CT Hospital stay at [facility] <90 days prior. Speech eval feels some esophageal reflux but only employ good bedside aspiration techniques (3) Acute diastolic (congestive) heart failure: Appears volume overloaded clinically/radiographically. Echo 12/2018 w/ preserved EF. Thus, HFpEF improved after one dose of lasix 20 mg (4) Atrial fibrillation: Cont eliquis. Cont beta reta. 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 Remains on eliquis BID. (6) Aortic valve vegetation: small vegetation 12/2018 echo. consider repeat echo if any positive blood culture, etc. (7) Dysphagia: speech therapy eval appreciated soft bite sized texture for solids (8) Hypothyroid: TSH compensated cont synthroid (9) Chronic kidney disease, stage 3a: Cr stable and at baseline (10) Hypertension: elevated titrate beta reta 02/13 (11) Cognitive impairment: baseline mental status? records suggest "short term memory" loss. suspect, at least, mild cognitive impairment. (12) DVT prophylaxis: eliquis Total Time Total Time Spent Total Time Spent (In Minutes): greater than 30 minutes were required to prepare discharge Discharge Plan Discharge Items Patient Disposition: Personal Longterm Reason For Visit: PNEUMONIA Discharge Diagnosis: uti interstitial pneumonitis Discharge Goals: Decrease discomfort and Diagnostic testing Activity: Resume your previous activity Non-emergency contact: Primary Care Provider Call non-emergency contact if: you have any medication questions Follow-up/Referrals: Charles Blanchard MD [Primary Care Provider] - Diet: Regular Diet Texture: Dental soft (bite-sized) Diet Comment: aspiration precautions Addtl Provider Instructions: please complete antibiotics, and follow up with primary care in one week, you have an inflammatory lung condition and will need to wear your oxygen at all times until your out pt doctor or facility practice specialist tells you otherwise Please eat carefully and slowly, small amounts, sitting upright and clearing mouth between bites Prescriptions: New prednisone 10 mg tablet 10 mg PO UD Qty: 40 RF: 0 levofloxacin [Levaquin] 750 mg tablet 750 mg PO Q48H 4 Days Qty: 4 RF: 0 Oxygen Home Liters Per Minute .ROUTE .MEDSUPPLY Qty: 1 RF: 0 metoprolol tartrate 50 mg tablet 50 mg PO BID Qty: 60 RF: 0 Continued multivitamin Tablet 1 tab PO DAILY RF: 0 omega-3 fatty acids 1,000 mg Capsule 1,000 mg PO DAILY RF: 0 levothyroxine 75 mcg Tablet 75 mcg PO DAILY RF: 0 telmisartan 80 mg Tablet 80 mg PO BID RF: 0 pravastatin 20 mg Tablet 20 mg PO HS RF: 0 darifenacin 7.5 mg Tablet Extended Release 24 Hr 7.5 mg PO DAILY RF: 0 calcium carbonate-vitamin D3 [Os-Nixon 500 + D3] 500 mg(1,250mg) -200 unit Tablet 1 tab PO DAILY RF: 0 aspirin [Ecotrin Low Strength] 81 mg Tablet,Delayed Release (Dr/Ec) 81 mg PO QAM Qty: 30 RF: 0 latanoprost 0.005 % Drops 1 drp OPB HS Qty: 15 RF: 0 docusate sodium 100 mg Capsule 100 mg PO BID RF: 0 losartan 100 mg Tablet 100 mg PO DAILY RF: 0 Eliquis 2.5 mg Tablet 2.5 mg PO BID RF: 0 sennosides [Senna Lax] 8.6 mg Tablet 8.6 mg PO DAILY@1200 PRN (Reason: Constipation) RF: 0 acetaminophen 325 mg Tablet 650 mg PO Q4H PRN (Reason: Pain) RF: 0 polyethylene glycol 3350 [Miralax] 17 gram Powder In Packet 17 g PO DAILY@1200 PRN (Reason: Constipation) RF: 0 magnesium hydroxide [Milk of Magnesia] 400 mg/5 mL Suspension 30 ml PO DAILY PRN (Reason: Constipation) RF: 0 bisacodyl 10 mg Suppository 10 mg MI DAILY PRN (Reason: Constipation) RF: 0 Fleet Enema 19-7 gram/118 mL Enema 118 ml MI DAILY PRN (Reason: Constipation) RF: 0 Stand-Alone Forms: [facility] Discharge Orders: Discharge Order (Routine); Ordered 02/17/19 Ordered By: Cesar Hearn Admission Data Admit Date/Time: 02/11/19 20:48 Attending Provider: Cesar Hearn Admit Provider: Britney Hamilton Primary Care Provider: Charles Blanchard Other Providers: Tima Garsia Jonathan R Service: Medical
== END 2019-02-17 16:10 | disposition home or self-care (01) | DRG 689 ==
LOC: ED 15:53 → SUATTDRO 20:48 → 4W 20:48 → 4E 02-14 18:43

== ENCOUNTER 2019-02-20 19:49 | Inpatient (IN) ==
[2019-02-20 20:23] LABS: Basophils # (auto) 0.01 K/uL (0-0.2); Basophils % (auto) 0.1 %; Eosinophils # (auto) 0.02 K/uL (0-0.5); Eosinophils % (auto) 0.2 %; Hematocrit (blood only) 36.9 % (37-47); Hemoglobin 12.3 g/dL (12.0-16.0); Lymphocytes # (auto) 1.61 K/uL (1.2-3.4); Lymphocytes % (auto) 15.4 %; Mean Corpuscular Hgb Conc 33.3 g/dL (32-36); Mean Corpuscular Volume 92.7 fL (80-100); Mean Platelet Volume 9.7 fL (7.4-10.4); Monocytes # (auto) 0.61 K/uL (0.11-0.59); Monocytes % (auto) 5.8 %; Neutrophils # (auto) 8.13 K/uL (1.4-6.5); Neutrophils % (auto) 77.5 %; Platelet Count 345 K/uL (130-400); RDW Coefficient of Variation 14.7 % (11.5-14.5); RDW Standard Deviation 49.3 fL (36.4-46.3); Red Blood Count 3.98 M/uL (4.2-5.4); White Blood Count 10.48 K/uL (4.8-10.8)
[2019-02-20 20:24] LABS: Appearance Urine Clear (Clear); Bacteria Urine Automated Negative (Negative); Bilirubin Urine Negative (Negative); Blood Urine Negative (Negative); Color Urine Dark Yellow; Epithelial Cell Urine Auto >30 /lpf (0-5); Glucose Urine UA Negative (Negative); Ketones Urine Negative (Negative); Leukocyte Esterase Urine Negative (Negative); Nitrite Urine Negative (Negative); Protein Urine 3+ (Negative); RBC Urine Automated 0-4 /hpf (0-4); Specific Gravity Urine 1.025 (1.000-1.030); Urobilinogen Urine Negative (Negative); pH Urine 5.5 (4.5-7.5)
[2019-02-20 20:30] LABS: BUN Creatinine Ratio 28.1 (10-20); Calcium 10.2 mg/dl (8.5-10.1); Creatinine Clr Calc Pharmacy 27.7 ml/min; Est GFR (African American) 50.3; Est GFR (Non-African American) 43.4; Potassium 3.9 mmol/L (3.5-5.1)
[2019-02-20 20:33] LABS: Albumin Globulin Ratio 0.7 (0.9-2); Bilirubin,Total 0.9 mg/dl (0.2-1); Globulin 4.3 gm/dl (2.5-4.0); Total Protein 7.3 gm/dl (6.4-8.2)
[2019-02-20] MEDS ORDERED: SODIUM CHLORIDE 0.9% 1000ML 1,000 ML IV SCH (21:30)
--- NOTE | 2019-02-20 21:44 | CT Scan Report ---
CT head/brain wo con CT DOSE: 537.48 mGy.cm HISTORY: Mental status change ams, htn TECHNIQUE: Multiaxial CT images of the head were performed without the use of intravenous contrast. A dose lowering technique was utilized adhering to the principles of ALARA. Comparison: 02/11/2019 Findings: The paranasal sinuses and mastoid air cells are clear. The calvarium and skull base are int act. The ventricles and sulci are within normal limits. There is no mass, hematoma, midline shift, or acute infarct. Impression: No acute intracranial abnormality. Chronic and age-related change The above report was generated using voice recognition software. It may contain grammatical, syntax or spelling errors. Electronically signed by: Dwaine Chaney M.D. 02/20/2019 9:43 PM
[2019-02-20 22:14] LABS: Troponin I 0.029 ng/ml (0-0.045)
[2019-02-20] MEDS ORDERED: LABETALOL HCL IV 5 MG/ML 20ML IV STA (22:39)
[2019-02-20] MEDS ORDERED: LORazepam 0.5 MG/1 ML VIAL IV STA (22:51)
[2019-02-20] MEDS ORDERED: FUROSEMIDE 40 MG/4 ML VIAL IV STA (23:27)
[2019-02-20] MEDS ORDERED: PIPERACILL/TAZOBAC CONSULT ACTIVE PRN (23:27)
[2019-02-20] MEDS ORDERED: PIPERACILLIN/TAZOBACTAM 4.5 GM/120 ML BAG IV ONE (23:27)
--- NOTE | 2019-02-20 23:32 | Emergency Department Note ---
Entered by Jamia Rooney acting as a scribe for Pretty Thomson DO History of Present Illness General Chief complaint: Confusion Time Seen by Provider: 02/20/19 20:58 Source: patient and family Limitations: no limitations History of Present Illness Onset (ago): hour(s) (earlier today) Location: head Severity: similar to prior episodes Pain Consistency: + other (worsening) Maximum Pain Intensity: 0 Current Pain Intensity: 0 Quality: + other (confusion) Associated symptoms: + denies other symptoms (pain, dizziness, lightheadedness, vision change), + headaches and + other (high blood pressure, hallucinations); no chest pain, no nausea/vomiting and no shortness of breath The patient is an 88 year female who presents to the ED complaining of confusion that worsened earlier today. Her family, at bedside, states that she was released from a week long hospital stay 4 days ago. They note that she was admitted for a UTI, and she is taking Levaquin with which she was released. Her family reports that this episode is similar to her past episodes of UTI, noting that she usually has hallucinations with UTIs. They complain that she has been experiencing hallucinations today. The family complains that her blood pressure "aaliyah rocketed" today. She complains of a "slight" headache above her left eye. The patient denies any pain, dizziness, lightheadedness, vision change, nausea/vomiting, chest pain, and new SOB. She denies any pain. Her family notes that she wears oxygen at baseline. Patient with prior history of aspiration, did have a swallow eval at her last admission. HPI Limited due to altered mental status and mostly provided by sons at bedside. Home Medications Home Medications Medication Instructions Recorded Confirmed Type calcium carbonate-vitamin D3 1 tab PO DAILY 12/16/18 02/20/19 History [[place] 500 + D3] darifenacin 7.5 mg PO DAILY 12/16/18 02/20/19 History levothyroxine 75 mcg PO DAILY 12/16/18 02/20/19 History multivitamin 1 tab PO DAILY 12/16/18 02/20/19 History omega-3 fatty acids 1,000 mg PO DAILY 12/16/18 02/20/19 History pravastatin 20 mg PO HS 12/16/18 02/20/19 History telmisartan 80 mg PO BID 12/16/18 02/20/19 History aspirin [Ecotrin Low Strength] 81 mg PO QAM #30 tab 12/20/18 02/20/19 Rx latanoprost 1 drp OPB HS #15 ml 12/20/18 02/20/19 Rx Eliquis 2.5 mg PO BID 02/11/19 02/20/19 History Fleet Enema 118 ml GA DAILY PRN 02/11/19 02/20/19 History acetaminophen 650 mg PO Q4H PRN 02/11/19 02/20/19 History bisacodyl 10 mg GA DAILY PRN 02/11/19 02/20/19 History docusate sodium 100 mg PO BID 02/11/19 02/20/19 History losartan 100 mg PO DAILY 02/11/19 02/20/19 History magnesium hydroxide [Milk of 30 ml PO DAILY PRN 02/11/19 02/20/19 History Magnesia] polyethylene glycol 3350 [Miralax] 17 g PO DAILY@1200 PRN 02/11/19 02/20/19 History sennosides [Senna Lax] 8.6 mg PO DAILY@1200 PRN 02/11/19 02/20/19 History metoprolol tartrate 50 mg PO BID #60 tab 02/17/19 02/20/19 Rx dorzolamide-timolol [Cosopt] 1 drp OPB BID 02/20/19 02/20/19 History prednisone 10 mg PO DAILY 02/20/19 02/20/19 History Allergies Allergy/AdvReac Type Severity Reaction Status Date / Time No Known Allergies Allergy Unverified 02/20/19 20:35 Past Med/Surg History Medical History Cognitive impairment Aortic valve vegetation DVT prophylaxis Chronic kidney disease, stage 3a Acute diastolic (congestive) heart failure (Acute) Acute respiratory failure with hypoxia (Acute) Urinary incontinence Hypothyroid Altered mental status (Acute) Hypertension (Acute) PNA (pneumonia) (Acute) Leukocytosis (Acute) Hx of glaucoma (Chronic) CVA (cerebral vascular accident) Carotid stenosis, bilateral Dysphagia (Acute) Short-term memory loss Hyperlipidemia Atrial fibrillation (Chronic) Cerebrovascular accident, embolic (Acute) Urinary tract infection (Chronic) Atrial fibrillation with rapid ventricular response (Chronic) Heart disease (Chronic) Hypertension (Chronic) Family History Other Family history non-contributory Social History Preferred Language: Sami Communication Ability: Impaired Communication Ability Comment: pt is confused Wrapper Dipper Required: No Beliefs That Will Affect Care: None marital status: / Current Living Situation: Personal Care Facility current occupational status: retired Feels Safe at Home: Yes Safety Concerns: Feels Safe At This Time Smoking Status: Never smoker Hx Alcohol Use: No Hx Substance Use: No Review of Systems See HPI for pertinent positives & negatives. and A total of 10 systems reviewed and were otherwise negative Physical Exam Vital Signs Vital Signs - 24 hr 02/20/19 23:55 02/20/19 23:56 02/21/19 00:00 Pulse Rate 78 79 Pulse Rate [Right Finger] 79 Pulse Rate from SpO2 Sensor 81 82 Respiratory Rate 20 24 20 Respiratory Effort / Characteristics Non-Labored Respiratory Depth Normal Respiratory Pattern Regular Blood Pressure 196/111 H Blood Pressure [Left Arm] 196/111 H Blood Pressure Mean 139 Blood Pressure Mean [Left Arm] 139 Blood Pressure Position [Left Arm] Lying Pulse Oximetry 97 96 95 Oxygen Delivery Method Nasal Cannula Oxygen Flow Rate 2 02/21/19 00:01 02/21/19 00:21 02/21/19 00:22 Pulse Rate 80 91 H 93 H Pulse Rate [Right Finger] Pulse Rate from SpO2 Sensor 87 91 H 83 Respiratory Rate 19 23 17 Respiratory Effort / Characteristics Respiratory Depth Respiratory Pattern Blood Pressure 178/117 H 104/76 Blood Pressure [Left Arm] Blood Pressure Mean 137 85 Blood Pressure Mean [Left Arm] Blood Pressure Position [Left Arm] Pulse Oximetry 93 95 94 Oxygen Delivery Method Oxygen Flow Rate 02/21/19 00:30 02/21/19 01:00 02/21/19 01:01 Pulse Rate 87 104 H 80 Pulse Rate [Right Finger] Pulse Rate from SpO2 Sensor 89 81 82 Respiratory Rate 20 16 22 Respiratory Effort / Characteristics Respiratory Depth Respiratory Pattern Blood Pressure 191/121 H 180/94 H Blood Pressure [Left Arm] Blood Pressure Mean 144 122 Blood Pressure Mean [Left Arm] Blood Pressure Position [Left Arm] Pulse Oximetry 93 97 97 Oxygen Delivery Method Oxygen Flow Rate GENERAL: alert, well appearing, well nourished, no distress, non-toxic EYE EXAM: normal conjunctiva, PERRL and EOM's grossly intact OROPHARYNX: no exudate, no erythema, lips, buccal mucosa, and tongue normal and mucous membranes are dry NECK: supple, no nuchal rigidity, no adenopathy, non-tender LUNGS: Coarse breath sounds bilaterally. No overt wheezes, rhonchi, or rales. HEART: no murmurs, S1 normal and S2 normal ABDOMEN: abdomen soft, non-tender, normo-active bowel sounds, no masses, no rebound or guarding. BACK: Back is symmetrical on inspection and there is no deformity, no midline tenderness, no CVA tenderness. SKIN: no rashes and no bruising UPPER EXTREMITIES: upper extremities are grossly normal. Normal pulses bilaterally. LOWER EXTREMITIES: No pitting edema. Full range of motion bilaterally, normal p ulses bilaterally. NEURO EXAM: Normal sensorium, cranial nerves II-XII grossly intact, normal speech, no gross weakness of arms, no gross weakness of legs. Patient confused. Answers simple questions. Awake and alert. Course 211: The patient was evaluated in room B10. A complete history and physical exam was performed. 2333: I reassessed the patient. She was talking to people that were not in the room. Blood pressure was improved after addition of labetalol. 0120: I spoke with Dr. Hairston, [facility] hospitalist, about the patients case. He will further evaluate the patient. Consultations Consultation #1: I spoke with Dr. Hairston, [facility] hospitalist, about the patients case. He will further evaluate the patient. Time: 01:20 Administered Medications Apixaban (Eliquis) 2.5 mg PO BID [facility] Stop: 03/23/19 08:59 Last Admin: 02/21/19 20:27 Dose: 2.5 mg Documented by: [id number] Admin: 02/21/19 14:09 Dose: 2.5 mg Documented by: [id number] Aspirin (Ecotrin Ectab) 81 mg PO QAM [facility] Stop: 03/23/19 08:59 Last Admin: 02/21/19 14:09 Dose: 81 mg Documented by: [id number] Docusate Sodium (Colace) 100 mg PO BID [facility] Stop: 03/23/19 08:59 Last Admin: 02/21/19 20:26 Dose: 100 mg Documented by: [id number] Admin: 02/21/19 14:09 Dose: 100 mg Documented by: [id number] Dorzolamide/Timolol (Cosopt) 1 drops OPB BID [facility] Stop: 03/23/19 08:59 Last Admin: 02/21/19 20:24 Dose: 1 drops Documented by: [id number] Admin: 02/21/19 08:47 Dose: 1 drops Documented by: [id number] Fish Oil ([place]-3 (Purified Fish Oil)) 1 gm PO DAILY [facility] Stop: 03/23/19 08:59 Last Admin: 02/21/19 14:10 Dose: 1 gm Documented by: [id number] Sodium Chloride (Nss 1000ml) 1,000 mls @ 80 mls/hr IV .[id number] [facility] Stop: 03/23/19 02:43 Last Admin: 02/21/19 17:15 Dose: 80 mls/hr Documented by: [id number] Infusion: 02/21/19 17:15 Dose: 0 mls/hr Documented by: [id number] Admin: 02/21/19 03:45 Dose: 80 mls/hr Documented by: [id number] Piperacillin Sod/Tazobactam (Sod 3.375 gm/ Dextrose) 115 mls @ 28.75 mls/hr IV Q8H [facility]; Protocol Stop: 02/28/19 05:59 Last Admin: 02/21/19 22:10 Dose: 28.8 mls/hr Documented by: [id number] Infusion: 02/21/19 20:23 Dose: 28.8 mls/hr Documented by: [id number] Admin: 02/21/19 15:39 Dose: 28.8 mls/hr Documented by: [id number] Infusion: 02/21/19 08:59 Dose: 0 mls/hr Documented by: [id number] Admin: 02/21/19 04:59 Dose: 28.8 mls/hr Documented by: [id number] Latanoprost (Xalatan Oph) 1 drops OPB HS [facility] Stop: 03/23/19 20:59 Last Admin: 02/21/19 20:30 Dose: 1 drops Documented by: [id number] Levothyroxine Sodium (Synthroid) 75 mcg PO DAILYBB [facility] Stop: 03/23/19 06:29 Last Admin: 02/21/19 04:59 Dose: 75 mcg Documented by: [id number] Metoprolol Tartrate (Lopressor) 50 mg PO BID [facility] Stop: 03/23/19 03:59 Last Admin: 02/21/19 20:27 Dose: 50 mg Documented by: [id number] Admin: 02/21/19 14:09 Dose: 50 mg Documented by: [id number] Admin: 02/21/19 04:59 Dose: 50 mg Documented by: [id number] Miscellaneous (Order Awaiting Action) 1 ea N/A QS [facility] Stop: 03/23/19 07:59 Last Admin: 02/21/19 15:40 Dose: Not Given Documented by: [id number] Admin: 02/21/19 14:09 Dose: Not Given Documented by: [id number] Pravastatin Sodium (Pravachol) 20 mg PO HS [facility] Stop: 03/23/19 20:59 Last Admin: 02/21/19 20:28 Dose: 20 mg Documented by: [id number] Telmisartan (Micardis) 80 mg PO BID [facility] Stop: 03/23/19 08:59 Last Admin: 02/21/19 20:28 Dose: 80 mg Documented by: [id number] Admin: 02/21/19 14:12 Dose: 80 mg Documented by: [id number] Discontinued Medications Furosemide (Lasix) 40 mg IV NOW STA Stop: 02/20/19 23:28 Last Admin: 02/21/19 00:01 Dose: 40 mg Documented by: [id number] Sodium Chloride (Nss 1000ml) 1,000 mls @ 125 mls/hr IV .Q8H [facility] Stop: 03/22/19 21:29 Last Infusion: 02/21/19 02:19 Dose: 0 mls/hr Documented by: [id number] Admin: 02/20/19 21:34 Dose: 125 mls/hr Documented by: [id number] Lorazepam (Ativan) 0.5 mg in 1 mls @ 1 mls/min IV NOW STA Stop: 02/20/19 22:52 Last Admin: 02/20/19 22:57 Dose: 1 mls/min Documented by: [id number] Piperacillin Sod/Tazobactam Sod (Zosyn) 4.5 gm in 120 mls @ 240 mls/hr IV NOW ONE Stop: 02/20/19 23:56 Last Infusion: 02/21/19 01:13 Dose: 0 mls/hr Documented by: [id number] Admin: 02/21/19 00:42 Dose: 240 mls/hr Documented by: [id number] Potassium Chloride (K Shay / Wtr) 10 meq in 100 mls @ 100 mls/hr IV Q1H [facility] Stop: 02/21/19 13:29 Last Infusion: 02/21/19 16:40 Dose: 0 mls/hr Documented by: [id number] Admin: 02/21/19 15:40 Dose: 100 mls/hr Documented by: [id number] Infusion: 02/21/19 15:38 Dose: 0 mls/hr Documented by: [id number] Admin: 02/21/19 14:08 Dose: 100 mls/hr Documented by: [id number] Infusion: 02/21/19 14:08 Dose: 0 mls/hr Documented by: [id number] Admin: 02/21/19 12:10 Dose: 100 mls/hr Documented by: [id number] Infusion: 02/21/19 10:32 Dose: 0 mls/hr Documented by: [id number] Admin: 02/21/19 09:32 Dose: 100 mls/hr Documented by: [id number] Labetalol HCl (Normodyne) 10 mg IV NOW STA Stop: 02/20/19 22:40 Last Admin: 02/20/19 22:48 Dose: 10 mg Documented by: [id number] Cosigned by: [id number] Nitroglycerin (Nitro-Bid 2%) 1 inch EXT NOW STA Stop: 02/20/19 23:34 Last Admin: 02/20/19 23:52 Dose: 1 inch Documented by: [id number] Medical Decision Making Differential Diagnosis Differential diagnosis includes: metabolic, infection, hypoglycemia, electrolyte abnormalities, cardiac sources, intracerebral event, toxicologic, neurologic, as well as others were entertained. Medical Records Attestation: I reviewed the patient's medical records. Home Medications Current Medication List: was personally reviewed by me Laboratory Data Attestation: I reviewed the patient's lab results. Result diagrams: 02/20/19 19:58 02/21/19 06:58 Lab Results 02/20/19 02/20/19 02/20/19 Range/Units 19:58 19:58 19:58 WBC 10.48 (4.8-10.8) K/uL RBC 3.98 L (4.2-5.4) M/uL Hgb 12.3 (12.0-16.0) g/dL Hct 36.9 L (37-47) % MCV 92.7 (80-100) fL MCH 30.9 (25-34) pg MCHC 33.3 (32-36) g/dL RDW Std Deviation 49.3 H (36.4-46.3) fL RDW Coeff of Nicole 14.7 H (11.5-14.5) % Plt Count 345 (130-400) K/uL MPV 9.7 (7.4-10.4) fL Immature Gran % (Auto) 1.0 % Neut % (Auto) 77.5 % Lymph % (Auto) 15.4 % [place] % (Auto) 5.8 % Eos % (Auto) 0.2 % Baso % (Auto) 0.1 % Immature Gran # (Auto) 0.10 H (0.00-0.02) K/uL Neut # (Auto) 8.13 H (1.4-6.5) K/uL Lymph # (Auto) 1.61 (1.2-3.4) K/uL [place] # (Auto) 0.61 H (0.11-0.59) K/uL Eos # (Auto) 0.02 (0-0.5) K/uL Baso # (Auto) 0.01 (0-0.2) K/uL Sodium 139 (136-145) mmol/L Potassium 3.9 (3.5-5.1) mmol/L Chloride 104 (98-107) mmol/L Carbon Dioxide 28 (21-32) mmol/L Anion Gap 8.0 (3-11) BUN 32 H (7-18) mg/dl Creatinine 1.13 (0.6-1.2) mg/dl Est Cr Clr Drug Dosing 27.7 ml/min Est GFR ( Amer) 50.3 Est GFR (Non-Af Amer) 43.4 BUN/Creatinine Ratio 28.1 H (10-20) Glucose 150 H (70-99) mg/dl Calcium 10.2 H (8.5-10.1) mg/dl Total Bilirubin 0.9 (0.2-1) mg/dl AST 20 (15-37) U/L ALT 22 (12-78) U/L Alkaline Phosphatase 95 (45-117) U/L Troponin I 0.029 (0-0.045) ng/ml NT-Pro-B Natriuret Pep 9837 H (0-1800) pg/ml Total Protein 7.3 (6.4-8.2) gm/dl Albumin 3.0 L (3.4-5.0) gm/dl Globulin 4.3 H (2.5-4.0) gm/dl Albumin/Globulin Ratio 0.7 L (0.9-2) Procalcitonin (0-0.5) ng/ml Urine Color Urine Appearance (Clear) Urine pH (4.5-7.5) Ur Specific [place] (1.000-1.030) Urine Protein (Negative) Urine Glucose (UA) (Negative) Urine Ketones (Negative) Urine Blood (Negative) Urine Nitrite (Negative) Urine Bilirubin (Negative) Urine Urobilinogen (Negative) Ur Leukocyte Esterase (Negative) Urine WBC (Auto) (0-5) /hpf Urine RBC (Auto) (0-4) /hpf U Hyaline Cast (Auto) (0-5) /lpf U Epithel Cells (Auto) (0-5) /lpf Urine Bacteria (Auto) (Negative) 02/20/19 02/20/19 Range/Units 19:58 20:07 WBC (4.8-10.8) K/uL RBC (4.2-5.4) M/uL Hgb (12.0-16.0) g/dL Hct (37-47) % MCV (80-100) fL MCH (25-34) pg MCHC (32-36) g/dL RDW Std Deviation (36.4-46.3) fL RDW Coeff of Nicole (11.5-14.5) % Plt Count (130-400) K/uL MPV (7.4-10.4) fL Immature Gran % (Auto) % Neut % (Auto) % Lymph % (Auto) % [place] % (Auto) % Eos % (Auto) % Baso % (Auto) % Immature Gran # (Auto) (0.00-0.02) K/uL Neut # (Auto) (1.4-6.5) K/uL Lymph # (Auto) (1.2-3.4) K/uL [place] # (Auto) (0.11-0.59) K/uL Eos # (Auto) (0-0.5) K/uL Baso # (Auto) (0-0.2) K/uL Sodium (136-145) mmol/L Potassium (3.5-5.1) mmol/L Chloride (98-107) mmol/L Carbon Dioxide (21-32) mmol/L Anion Gap (3-11) BUN (7-18) mg/dl Creatinine (0.6-1.2) mg/dl Est Cr Clr Drug Dosing ml/min Est GFR ( Amer) Est GFR (Non-Af Amer) BUN/Creatinine Ratio (10-20) Glucose (70-99) mg/dl Calcium (8.5-10.1) mg/dl Total Bilirubin (0.2-1) mg/dl AST (15-37) U/L ALT (12-78) U/L Alkaline Phosphatase (45-117) U/L Troponin I (0-0.045) ng/ml NT-Pro-B Natriuret Pep (0-1800) pg/ml Total Protein (6.4-8.2) gm/dl Albumin (3.4-5.0) gm/dl Globulin (2.5-4.0) gm/dl Albumin/Globulin Ratio (0.9-2) Procalcitonin 0.05 (0-0.5) ng/ml Urine Color Dark Yellow Urine Appearance Clear (Clear) Urine pH 5.5 (4.5-7.5) Ur Specific [place] 1.025 (1.000-1.030) Urine Protein 3+ H (Negative) Urine Glucose (UA) Negative (Negative) Urine Ketones Negative (Negative) Urine Blood Negative (Negative) Urine Nitrite Negative (Negative) Urine Bilirubin Negative (Negative) Urine Urobilinogen Negative (Negative) Ur Leukocyte Esterase Negative (Negative) Urine WBC (Auto) 1-5 (0-5) /hpf Urine RBC (Auto) 0-4 (0-4) /hpf U Hyaline Cast (Auto) 5-10 H (0-5) /lpf U Epithel Cells (Auto) >30 H (0-5) /lpf Urine Bacteria (Auto) Negative (Negative) Imaging Data Attestation: I personally reviewed and interpreted this imaging study as follows: My Impression: XR CHEST 2V: Cardiomegaly. Increased interstitial markings bilaterally, right greater than left. Small bilateral pleural effusions. No wide mediastinum. Radiologist's Impression: Radiology results as stated below per my review and the radiologist's interpretation: CT head/brain wo con CT DOSE: 537.48 mGy.cm HISTORY: Mental status change ams, htn TECHNIQUE: Multiaxial CT images of the head were performed without the use of intravenous contrast. A dose lowering technique was utilized adhering to the principles of ALARA. Comparison: 02/11/2019 Findings: The paranasal sinuses and mastoid air cells are clear. The calvarium and skull base are intact. The ventricles and sulci are within normal limits. There is no mass, hematoma, midline shift, or acute infarct. Impression: No acute intracranial abnormality. Chronic and age-related change The above report was generated using voice recognition software. It may contain grammatical, syntax or spelling errors. Electronically signed by: Dwaine Chaney M.D. 02/20/2019 9:43 PM ECG Data Attestation: I personally reviewed and interpreted this ECG as follows: Indication: other (confusion) Rate (beats per minute): 86 Rhythm: atrial fibrillation Findings: + other (normal axis, normal QRS, prolonged QTC) and + T-wave inversion (in 3 and AVF); no ST elevation Blood Pressure Blood Pressure Findings: Elevated blood pressure Blood Pressure Disposition: further management by hospitalist SANKET Narrative Patient here with increased confusion and elevated blood pressure. Family concerned about recurrent or evolving infection as these have previously present ed as confusion of the patient. Patient was found to have elevated blood pressure here and did eventually require a dose of labetalol. Patient's head CT reassuring and no focal neuro deficits noted on exam. Patient's labs reassuring. Chest x-ray was abnormal and concerning for possible aspiration versus pulmonary edema. Patient with elevated BNP here which may be due to pulmonary edema or pneumonia. Patient afebrile, however has still been taking Levaquin recently for prior pneumonia. Unclear if patient has truly failing outpatient management or if there are other contributing factors such as ongoing aspiration. Patient appears clinically mildly dehydrated and appears this way on labs also. No evidence of ACS. Patient here was hallucinating which family insists is not normal and typically presents with her infections. No evidence of bacteremia/sepsis at this time. Patient was given a dose of Zosyn to cover for possible aspirations. No other acute infectious etiology noted. Patient not overtly hypoxic while in the emergency room, was placed on nasal cannula due to reported shortness of breath and did appear improved. Impression & Plan Altered mental status, Hypertension, Acute dyspnea, Atrial fibrillation, Pneumonia, Acute hypokalemia Discharge Plan Visit Data *Final* Discharge Date/Time: 02/21/19 02:17 Chief Complaint: Confusion ED Provider: Pretty Thomson Discharge Problem: Altered mental status, Hypertension, Acute dyspnea, Atrial fibrillation, Pneumonia, Acute hypokalemia Patient Disposition: Admitted As Inpatient Discharge Instructions Interventions: ED Discharge Assessment Last Done: 02/21/19 02:17 Discharge Problem: Altered mental status Qualifiers: Altered mental status type: unspecified Qualified Code(s): R41.82 - Altered mental status, unspecified Hypertension Qualifiers: Hypertension type: essential hypertension Qualified Code(s): I10 - Essential (primary) hypertension Atrial fibrillation Qualifiers: Atrial fibrillation type: chronic Qualified Code(s): I48.2 - Chronic atrial fibrillation Pneumonia Qualifiers: Pneumonia type: due to unspecified organism Laterality: bilateral Lung loc ation: unspecified part of lung Qualified Code(s): J18.9 - Pneumonia, unspecified organism The scribe's documentation has been prepared under my direction and personally reviewed by me in its entirety. I confirm that the note above accurately reflects all work, treatment, procedures, and medical decision making performed by me.
[2019-02-20] MEDS ORDERED: NITROGLYCERIN 2% OINTMENT 30GM TUBE EXT STA (23:33)
--- NOTE | 2019-02-21 00:09 | History & Physical Report ---
Date of Service February 21, 2019 Assessment & Plan (1) Metabolic encephalopathy: 88 yo F with CVA, AFib, HTN, HLD, Hypothyroid, urinary incontinence presenting with worsening confusion Patient arrived afebrile , BP elevated, maintaining pulse ox on 2 L, with no leukocytosis, bmp unremarkable, UA unremarkable, CXR with bilateral opacities ( no radiology read available) Patient was given Zosyn 4.5 mg, IV lasix 40 mg, Ativan, 10 mg Labetolol IV - possibly secondary to aspiration event, hypoxia given known aspiration risk. UTI is unlikely given unremarkable UA. - Start Zosyn empirically for suspected aspiration - IV NS - F/u Blood cx, F/u urine cx, F/u Cxr report (2) Urinary tract infection: recently admitted with possible UTI, AMS urine cx showed alpha strep , a likely contaminant UA on this encounter unremarkable although patient was discharges on levaquin (3) Atrial fibrillation: rate controlled Continue Metoprolol anticoagulated with Eliquis (4) Dysphagia: likely contributor to aspiration Speech eval ordered to re-assess aspiration risk NPO pending recommendations (5) Hypothyroid: F/u TSH Continue Synthroid (6) Chronic kidney disease, stage 3a: Cr stable continue to monitor (7) Hypertension: elevated BP on arrival Continue Metoprolol, Telmisartan Losartan appears on med list, it was not prescribed by PCP unclear if provider aware patient was already on an ARB (8) DVT prophylaxis: Continue Eliquis History of Present Illness Chief Complaint: Metabolic Encephalopathy Primary Care Provider: Charles Blanchard MD 88 yo F with CVA, AFib, HTN, HLD, Hypothyroid, urinary incontinence presenting with worsening confusion. History is per chart review and report from ED physician. Patient is a poor historian due to mental status. SHe is uncertain why she was brought into hospital. She denies chest pain, sob, n/v, diarrhea, fevers, chills, urinary frequency, urgency. Patient was recently admitted 02/11- 02/17 for altered mental status. Initially, there was concern for bilateral pneumonia on CXR and patient was started on Zosyn IV. 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 Urine cx showed alpha strep. Patient was discharged on 4 days of Levaquin. During admission she had speech evaluation which showed aspiration event. Today, Patient arrived afebrile , BP elevated, maintaining pulse ox on 2 L, with no leukocytosis, bmp unremarkable, UA unremarkable, CXR with bilateral opacities ( no radiology read available) Patient was given Zosyn 4.5 mg, IV lasix 40 mg, Ativan, 10 mg Labetolol. Allergies Allergy/AdvReac Type Severity Reaction Status Date / Time No Known Allergies Allergy Unverified 02/20/19 20:35 Home Medications Home Medications Medication Instructions Recorded Confirmed Type calcium carbonate-vitamin D3 1 tab PO DAILY 12/16/18 02/20/19 History [Os-Nixon 500 + D3] darifenacin 7.5 mg PO DAILY 12/16/18 02/20/19 History levothyroxine 75 mcg PO DAILY 12/16/18 02/20/19 History multivitamin 1 tab PO DAILY 12/16/18 02/20/19 History omega-3 fatty acids 1,000 mg PO DAILY 12/16/18 02/20/19 History pravastatin 20 mg PO HS 12/16/18 02/20/19 History telmisartan 80 mg PO BID 12/16/18 02/20/19 History aspirin [Ecotrin Low Strength] 81 mg PO QAM #30 tab 12/20/18 02/20/19 Rx latanoprost 1 drp OPB HS #15 ml 12/20/18 02/20/19 Rx Eliquis 2.5 mg PO BID 02/11/19 02/20/19 History Fleet Enema 118 ml IN DAILY PRN 02/11/19 02/20/19 History acetaminophen 650 mg PO Q4H PRN 02/11/19 02/20/19 History bisacodyl 10 mg IN DAILY PRN 02/11/19 02/20/19 History docusate sodium 100 mg PO BID 02/11/19 02/20/19 History losartan 100 mg PO DAILY 02/11/19 02/20/19 History magnesium hydroxide [Milk of 30 ml PO DAILY PRN 02/11/19 02/20/19 History Magnesia] polyethylene glycol 3350 [Miralax] 17 g PO DAILY@1200 PRN 02/11/19 02/20/19 History sennosides [Senna Lax] 8.6 mg PO DAILY@1200 PRN 02/11/19 02/20/19 History metoprolol tartrate 50 mg PO BID #60 tab 02/17/19 02/20/19 Rx dorzolamide-timolol [Cosopt] 1 drp OPB BID 02/20/19 02/20/19 History prednisone 10 mg PO DAILY 02/20/19 02/20/19 History Past Med/Surg History Medical History Cognitive impairment Aortic valve vegetation DVT prophylaxis Chronic kidney disease, stage 3a Acute diastolic (congestive) heart failure (Acute) Acute respiratory failure with hypoxia (Acute) Urinary incontinence Hypothyroid Altered mental status (Acute) Hypertension (Acute) PNA (pneumonia) (Acute) Leukocytosis (Acute) Hx of glaucoma (Chronic) CVA (cerebral vascular accident) Carotid stenosis, bilateral Dysphagia (Acute) Short-term memory loss Hyperlipidemia Atrial fibrillation (Chronic) Cerebrovascular accident, embolic (Acute) Urinary tract infection (Chronic) Atrial fibrillation with rapid ventricular response (Chronic) Heart disease (Chronic) Hypertension (Chronic) Family History Other Family history non-contributory Social History Preferred Language: Welsh Communication Ability: Impaired Communication Ability Comment: pt is confused Dietician Required: No Beliefs That Will Affect Care: None marital status: / Current Living Situation: Personal Care Facility current occupational status: retired Feels Safe at Home: Yes Safety Concerns: Feels Safe At This Time Smoking Status: Never smoker Hx Alcohol Use: No Hx Substance Use: No Review of Systems Review of Systems: Unobtainable due to cognitive status Physical Exam Physical Exam: General Adult Exam GENERAL APPEARANCE: alert, oriented x 1 ( person only) and cooperative, and appears to be in no acute distress. HEAD: normocephalic. EYES: PERRL, EOMI vision is grossly intact. EARS: hearing grossly intact. NOSE: No nasal discharge. NECK: Neck supple, non-tender without lymphadenopathy CARDIAC: Normal S1 and S2. No S3, S4 or murmurs. Rhythm is regular LUNGS: Clear to auscultation and percussion without rales, rhonchi, wheezing or diminished breath sounds. ABDOMEN: Positive bowel sounds. Soft, nondistended, nontender. No guarding or rebound. No masses. MUSKULOSKELETAL: Adequately aligned spine. ROM intact spine and extremities. No joint erythema or tenderness. Normal muscular development. Normal gait. BACK: Examination of the spine reveals normal gait and posture, no spinal deformity, symmetry of spinal muscles, without tenderness, decreased range of motion or muscular spasm. EXTREMITIES: No significant deformity or joint abnormality. No edema. LOWER EXTREMITY: no edema NEUROLOGICAL: CN II-XII intact. Strength and sensation symmetric and intact throughout. Reflexes 2+ throughout. Cerebellar testing normal. SKIN: Skin normal color, texture and turgor with no lesions or eruptions. Results & Data Vital Signs (Past 12 Hours) Vital Signs Temp Pulse Pulse Resp BP BP Pulse Ox 02/20/19 23:55 79 20 196/111 H 97 02/20/19 22:49 74 21 193/103 H 97 02/20/19 19:49 36.4 C L 92 H 16 203/116 H 96 Code Status & VTE Plan Code Status Full code VTE Prophylaxis Plan VTE Prophylaxis will be ordered: Yes Supervising Physician Co-Signing Physician Notes 88 y/o F Hx CVA, AF, HTN, HLD, Hypothyroid, urinary incontinence presents with worsening confusion. Recent treatment for UTI and presumed aspiration PNM. She was afebrile on arrival. A UA and CXR are equivocal. OE Confused, elderly F. No distress S1,2 irr Limited lung exam NT, ND No CCE P: Pt placed on Zosyn to cover both aspiration pnm and potential UTI She will receive IVF and we will consult PT/OT AM The pt takes Eliquis for AF Cont Synthroid She takes daily prednisone so that if she becomes hypotensive we should commence stress testing. PG Care Time/CCT Total # of Minutes Spent Total Time Spent with Patient: Total time spent is greater than 50% in coordination of care (as documented) at patient's floor/unit and/or counseling patient: (1) Atrial fibrillation Atrial fibrillation type: chronic Qualified Code(s): I48.2 - Chronic atrial fibrillation (2) Dysphagia Dysphagia type: unspecified Qualified Code(s): R13.10 - Dysphagia, unspecified (3) Hypothyroid Hypothyroidism type: acquired Qualified Code(s): E03.9 - Hypothyroidism, unspecified (4) Hypertension Hypertension type: essential hypertension Qualified Code(s): I10 - Essential (primary) hypertension
[2019-02-21] MEDS ORDERED: ONDANSETRON INJ 2 MG/ML 2 ML VIAL IV PRN (02:44)
[2019-02-21] MEDS ORDERED: ACETAMINOPHEN 325 MG TAB PO PRN (02:44)
[2019-02-21] MEDS ORDERED: PIPERACILL/TAZOBAC CONSULT ACTIVE PRN (02:44)
[2019-02-21] MEDS ORDERED: ALUMINUM/MAGNESIUM SUSP 30 ML UDC PO PRN (02:44)
[2019-02-21] MEDS ORDERED: MAGNESIUM HYDROXIDE SUSP 30 ML UDC PO PRN (02:44)
[2019-02-21] MEDS: SODIUM CHLORIDE 0.9% 1000ML 1,000 ML IV SCH ×2 (03:45→17:15)
[2019-02-21] MEDS: PIPERACILLIN/TAZOBACTAM 3.375 GM in DEXTROSE 5% 100 ML IV SCH ×3 (04:59→22:10)
[2019-02-21] MEDS: METOPROLOL TARTRATE 50 MG TAB PO SCH ×3 (04:59→20:27)
[2019-02-21] MEDS: LEVOTHYROXINE SODIUM 75 MCG TABLET PO SCH (04:59)
--- NOTE | 2019-02-21 06:35 | XRay Report ---
XR chest 2V routine CLINICAL HISTORY: recent pneumonia COMPARISON STUDY: 02/15/2019 FINDINGS: The heart is mildly enlarged. There is dense calcification of mitral valve annulus. Bilater al interstitial pulmonary opacities remain similar given the differences in technique. Trace pleural effusions are suspected.[ IMPRESSION: Stable cardiomegaly and bilateral interstitial pulmonary opacities. Suspected trace pleur al effusions. Electronically signed by: Joe Hurd M.D. 02/21/2019 6:34 AM
[2019-02-21 08:26] LABS: Albumin Level 2.6 gm/dl (3.4-5.0); BUN Creatinine Ratio 28.4 (10-20); Calcium 9.1 mg/dl (8.5-10.1); Creatinine Clr Calc Pharmacy 30.2 ml/min; Est GFR (African American) 56.9; Est GFR (Non-African American) 49.1; Potassium 2.9 mmol/L (3.5-5.1)
[2019-02-21 08:37] LABS: Albumin Globulin Ratio 0.6 (0.9-2); Globulin 4.1 gm/dl (2.5-4.0); Total Protein 6.7 gm/dl (6.4-8.2)
[2019-02-21] MEDS: DORZOLAMIDE/TIMOLOL 22.3/6.8MG/ML 10 ML BTL OPB SCH ×2 (08:47→20:24)
[2019-02-21] MEDS: POTASSIUM CHLORIDE / WTR 10 MEQ/100 ML PLCT IV SCH ×4 (09:32→15:40)
[2019-02-21] MEDS: APIXABAN 2.5 MG TAB PO SCH ×2 (14:09→20:27)
[2019-02-21] MEDS: DOCUSATE SODIUM 100 MG CAP PO SCH ×2 (14:09→20:26)
[2019-02-21] MEDS: ASPIRIN 81 MG ECTAB PO SCH (14:09)
[2019-02-21] MEDS: OMEGA-3 (PURIFIED FISH OIL) 1 GM CAP PO SCH (14:10)
[2019-02-21] MEDS: TELMISARTAN 40 MG TAB PO SCH ×2 (14:12→20:28)
[2019-02-21] MEDS: PRAVASTATIN SOD 20 MG TAB PO SCH (20:28)
[2019-02-21] MEDS: LATANOPROST 0.005% OP SOLN 2.5 ML BTL OPB SCH (20:30)
[2019-02-22] MEDS: PIPERACILLIN/TAZOBACTAM 3.375 GM in DEXTROSE 5% 100 ML IV SCH ×3 (05:37→21:49)
[2019-02-22] MEDS: SODIUM CHLORIDE 0.9% 1000ML 1,000 ML IV SCH ×2 (05:37→19:00)
[2019-02-22] MEDS: LEVOTHYROXINE SODIUM 75 MCG TABLET PO SCH (05:38)
[2019-02-22 05:59] LABS: Basophils # (auto) 0.03 K/uL (0-0.2); Basophils % (auto) 0.3 %; Eosinophils # (auto) 0.91 K/uL (0-0.5); Eosinophils % (auto) 9.8 %; Hematocrit (blood only) 34.3 % (37-47); Hemoglobin 11.1 g/dL (12.0-16.0); Immature Granulocytes # (auto) 0.07 K/uL (0.00-0.02); Immature Granulocytes % (auto) 0.8 %; Lymphocytes # (auto) 2.21 K/uL (1.2-3.4); Lymphocytes % (auto) 23.8 %; Mean Corpuscular Hgb Conc 32.4 g/dL (32-36); Mean Corpuscular Volume 93.7 fL (80-100); Mean Platelet Volume 9.4 fL (7.4-10.4); Monocytes # (auto) 0.73 K/uL (0.11-0.59); Monocytes % (auto) 7.9 %; Neutrophils # (auto) 5.32 K/uL (1.4-6.5); Neutrophils % (auto) 57.4 %; Platelet Count 294 K/uL (130-400); RDW Coefficient of Variation 14.9 % (11.5-14.5); RDW Standard Deviation 49.9 fL (36.4-46.3); Red Blood Count 3.66 M/uL (4.2-5.4); White Blood Count 9.27 K/uL (4.8-10.8)
[2019-02-22 06:39] LABS: Albumin Globulin Ratio 0.7 (0.9-2); Albumin Level 2.3 gm/dl (3.4-5.0); BUN Creatinine Ratio 25.8 (10-20); Bilirubin,Total 0.6 mg/dl (0.2-1); Calcium 8.1 mg/dl (8.5-10.1); Creatinine Clr Calc Pharmacy 26.5 ml/min; Est GFR (African American) 48.7; Globulin 3.4 gm/dl (2.5-4.0); Magnesium 1.7 mg/dl (1.8-2.4); Potassium 3.6 mmol/L (3.5-5.1); Total Protein 5.7 gm/dl (6.4-8.2)
[2019-02-22] MEDS: DOCUSATE SODIUM 100 MG CAP PO SCH ×2 (08:31→20:01)
[2019-02-22] MEDS: DORZOLAMIDE/TIMOLOL 22.3/6.8MG/ML 10 ML BTL OPB SCH ×2 (08:31→20:01)
[2019-02-22] MEDS: ASPIRIN 81 MG ECTAB PO SCH (08:32)
[2019-02-22] MEDS: APIXABAN 2.5 MG TAB PO SCH ×2 (08:32→20:01)
[2019-02-22] MEDS: METOPROLOL TARTRATE 50 MG TAB PO SCH ×2 (08:32→20:01)
[2019-02-22] MEDS: OMEGA-3 (PURIFIED FISH OIL) 1 GM CAP PO SCH (08:33)
[2019-02-22] MEDS: TELMISARTAN 40 MG TAB PO SCH ×2 (08:33→20:01)
--- NOTE | 2019-02-22 08:44 | Communication Note ---
Date of Service: February 21, 2019 Patient seen and examined in the AM. Patient remains somewhat confused. D/W speech, patient is high risk of aspirating. Will need to have discussion with family regarding goals of care.
[2019-02-22] MEDS ORDERED: MAGNESIUM SULFATE / D5W 1 GM/100 ML BAG IV ONE (14:15)
[2019-02-22] MEDS: PRAVASTATIN SOD 20 MG TAB PO SCH (20:01)
[2019-02-22] MEDS: LATANOPROST 0.005% OP SOLN 2.5 ML BTL OPB SCH (20:01)
--- NOTE | 2019-02-22 22:27 | Hospitalist Progress Note ---
Date of Service February 22, 2019 Assessment & Plan (1) Metabolic encephalopathy: 88 yo F with CVA, AFib, HTN, HLD, Hypothyroid, urinary incontinence presenting with worsening confusion Patient arrived afebrile , BP elevated, maintaining pulse ox on 2 L, with no leukocytosis, bmp unremarkable, UA unremarkable, CXR with bilateral opacities ( no radiology read available) Patient was given Zosyn 4.5 mg, IV lasix 40 mg, Ativan, 10 mg Labetolol IV - possibly secondary to aspiration event, hypoxia given known aspiration risk. UTI is unlikely given unremarkable UA. - Start Zosyn empirically for suspected aspiration - IV NS - F/u Blood cx, F/u urine cx, F/u Cxr report On 02/22: Patient has improved in this regard. (2) Urinary tract infection: recently admitted with possible UTI, AMS urine cx showed alpha strep , a likely contaminant UA on this encounter unremarkable although patient was discharges on levaquin Doubt this is aplaying a role. On zosyn for possible aspiration pneumonia (3) Atrial fibrillation: rate controlled Continue Metoprolol anticoagulated with Eliquis (4) Dysphagia: likely contributor to aspiration Resumed previous speech recommendations. Informed son, patient is high risk. Patient's son is open to discussing goals of care with palliative care. (5) Hypothyroid: F/u TSH Continue Synthroid (6) Chronic kidney disease, stage 3a: Cr stable continue to monitor (7) Hypertension: elevated BP on arrival Continue Metoprolol, Telmisartan Losartan appears on med list, it was not prescribed by PCP unclear if provider aware patient was already on an ARB (8) DVT prophylaxis: Continue Eliquis Spent 35 minutes in management of patient. Subjective Patient reports feeling better. Patient is back to her baseline. Main concern as per son was her hypertension. D/W son if he was interested in goals of care given that she is a high risk of aspration, given that we had a discussion with speech. We can continue the recommendations that were provided but she may continue to aspirate. The son is interested in discussing with palliative care goals of care, as she has had multiple admissions. Review of Systems Review of Systems: All systems reviewed & are unremarkable except as noted in HPI & below Physical Exam Physical Exam: General Adult Exam GENERAL APPEARANCE: alert, oriented x 1 ( person only) and cooperative, and appears to be in no acute distress. NECK: Neck supple, non-tender without lymphadenopathy CARDIAC: Normal S1 and S2. No S3, S4 or murmurs. Rhythm is regular LUNGS: Clear to auscultation and percussion without rales, rhonchi, wheezing or diminished breath sounds. ABDOMEN: Positive bowel sounds. Soft, nondistended, nontender. No guarding or rebound. No masses. MUSKULOSKELETAL: Adequately aligned spine. ROM intact spine and extremities. No joint erythema or tenderness. Normal muscular development. EXTREMITIES: No significant deformity or joint abnormality. No edema. LOWER EXTREMITY: no edema NEUROLOGICAL: CN II-XII intact. Strength and sensation symmetric and intact throughout. SKIN: Skin normal color, texture and turgor with no lesions or eruptions. Results & Data Vital Signs (Past 12 Hours) Vital Signs Temp Pulse Resp BP BP Pulse Ox 02/22/19 19:59 87 143/90 H 02/22/19 16:05 36.7 C 74 21 138/84 96 PG Care Time/CCT Total # of Minutes Spent Total Time Spent with Patient: Total time spent is greater than 50% in coordination of care (as documented) at patient's floor/unit and/or counseling patient: (1) Atrial fibrillation Atrial fibrillation type: chronic Qualified Code(s): I48.2 - Chronic atrial fibrillation (2) Dysphagia Dysphagia type: unspecified Qualified Code(s): R13.10 - Dysphagia, unspecified (3) Hypothyroid Hypothyroidism type: acquired Qualified Code(s): E03.9 - Hypothyroidism, unspecified (4) Hypertension Hypertension type: essential hypertension Qualified Code(s): I10 - Essential (primary) hypertension
[2019-02-23] MEDS: LEVOTHYROXINE SODIUM 75 MCG TABLET PO SCH (04:59)
[2019-02-23] MEDS: PIPERACILLIN/TAZOBACTAM 3.375 GM in DEXTROSE 5% 100 ML IV SCH ×2 (04:59→14:07)
[2019-02-23] MEDS: SODIUM CHLORIDE 0.9% 1000ML 1,000 ML IV SCH (07:45)
[2019-02-23] MEDS: DORZOLAMIDE/TIMOLOL 22.3/6.8MG/ML 10 ML BTL OPB SCH (07:47)
[2019-02-23] MEDS: DOCUSATE SODIUM 100 MG CAP PO SCH (07:47)
[2019-02-23] MEDS: ASPIRIN 81 MG ECTAB PO SCH (07:48)
[2019-02-23] MEDS: METOPROLOL TARTRATE 50 MG TAB PO SCH (07:48)
[2019-02-23] MEDS: TELMISARTAN 40 MG TAB PO SCH (07:48)
[2019-02-23] MEDS: APIXABAN 2.5 MG TAB PO SCH (07:48)
[2019-02-23] MEDS: OMEGA-3 (PURIFIED FISH OIL) 1 GM CAP PO SCH (07:50)
[2019-02-23 08:01] LABS: Hematocrit (blood only) 34.3 % (37-47); Mean Corpuscular Hgb Conc 32.1 g/dL (32-36); Mean Platelet Volume 9.3 fL (7.4-10.4); Platelet Count 295 K/uL (130-400); RDW Coefficient of Variation 15.1 % (11.5-14.5); RDW Standard Deviation 51.6 fL (36.4-46.3); Red Blood Count 3.61 M/uL (4.2-5.4); White Blood Count 11.78 K/uL (4.8-10.8)
[2019-02-23 08:02] LABS: Basophils # (auto) 0.04 K/uL (0-0.2); Basophils % (auto) 0.3 %; Eosinophils # (auto) 1.04 K/uL (0-0.5); Eosinophils % (auto) 8.8 %; Immature Granulocytes # (auto) 0.08 K/uL (0.00-0.02); Immature Granulocytes % (auto) 0.7 %; Lymphocytes # (auto) 2.11 K/uL (1.2-3.4); Lymphocytes % (auto) 17.9 %; Monocytes # (auto) 0.77 K/uL (0.11-0.59); Monocytes % (auto) 6.5 %; Neutrophils # (auto) 7.74 K/uL (1.4-6.5); Neutrophils % (auto) 65.8 %; RBC Morphology Unremarkable
[2019-02-23 08:08] LABS: Albumin Level 2.4 gm/dl (3.4-5.0); BUN Creatinine Ratio 25.2 (10-20); Calcium 8.4 mg/dl (8.5-10.1); Creatinine Clr Calc Pharmacy 33.4 ml/min; Est GFR (African American) 64.4; Est GFR (Non-African American) 55.6; Potassium 3.7 mmol/L (3.5-5.1)
[2019-02-23 08:11] LABS: Albumin Globulin Ratio 0.7 (0.9-2); Bilirubin,Total 0.5 mg/dl (0.2-1); Globulin 3.5 gm/dl (2.5-4.0); Total Protein 5.9 gm/dl (6.4-8.2)
--- NOTE | 2019-02-23 10:37 | Palliative Care Consultation ---
Date of Consultation February 23, 2019 Assessment & Plan (1) Goals of care, counseling/discussion: -88 year old female patient with PMH CVA, AFib, HTN, HLD, hypothyroidism, urinary incontinence presented from [facility] with worsening confusion. Patient arrived afebrile, BP elevated, maintaining pulse ox on 2 L, with no leukocytosis. Her bmp was unremarkable, UA negative, CXR with bilateral opacities. Patient was given Zosyn 4.5 mg, IV lasix 40 mg, Ativan, and 10 mg Labetolol IV. Patient was just recently admitted to hospital for possible UTI, AMS, and hypoxia. She was discharged on 02/17 back to [facility] on abx. The hypoxia had no definitive cause, thought to possibly be an element of interstitial lung disease. She was set up with home oxygen by our rn case manager hospice and has apparently been doing well, walking with a walker and has some physical therapy. During that admission, patient was also seen by speech therapy for possible aspiration. She had a video swallow study done on 02/14 which showed some dysphagia and aspiration risk, but no overt aspiration. Upon arrival during this admission, it was thought that she may have had an unwitnessed aspiration event, but no evidence of that. Speech saw her again during this admission and recommends aspiration precautions and diet modification (alternate solids and liquids, extra gravies/sauces, etc). Patient's mental status has improved as of yesterday 02/22. Given patient's readmission and continued aspiration risk, palliative care is consulted to discuss goals of care. -Met with patient in room 250. She is awake and alert. Oriented to person and place. Stated she was in "[facility]." She could not tell me why she was in the hospital or what had happened. She also thought it was July 2016. Patient stated that her son, Kenyon, is her surrogate decision maker if she is not able. We were unable to have a [facility] conversation due to her mental status and poor insight into the situation. When I asked if she has ever had trouble swallowing or told she has trouble swallowing she said "Not that I know of." -Called both numbers we have for her son Kenyon. No answer and voicemails are generic with no identifying information, so I did not leave a message. I will try back at a later time. -Patient does seem to have some mild cognitive impairment at baseline, according to documentation. Her palliative performance scale remains at about 60%-- indicating some disease burden but not severe. The issue is that if she is in fact aspirating, this will put her at risk for further pneumonitis/pneumonia, hospitalizations, decline, etc. If aspiration is in fact the issue, risk for more rapid decline is higher. Would like to discuss with patient's son about how this can progress and what to expect. As patient's decision maker, Kenyon will need to know how to react if aspiration does in fact continue occur-- would she want a feeding tube, continued hospitalizations, etc. -I did find a living will on file that states if patient is end-stage, she would not want any heroic or life-prolonging measures. She is currently a full code. She is obviously not end-stage at this point, but I do think it's worth discussing code status with her son/POA at this point. If she had a major aspiration event, or any other serious event such as cardiac or respiratory arrest, would he want patient to undergo resuscitative measures? -For now, patient is improved and we are continuing supportive care. Plan is for her to return to [facility] as far as I know. -We will continue to follow to discuss goals of care. (2) Altered mental status: Altered mental status type: unspecified Qualified Code(s): R41.82 - Altered mental status, unspecified (3) Dysphagia: Dysphagia type: unspecified Qualified Code(s): R13.10 - Dysphagia, unspecified (4) Hypertension: History of Present Illness Reason for Consultation: Goals of care Requesting Physician: Dr. Garsia Attending Physician: Tima Garsia History of Present Illness This 88 year old female patient with PMH CVA, AFib, HTN, HLD, hypothyroidism, urinary incontinence presented from [facility] personal jail with worsening confusion. Patient arrived afebrile, BP elevated, maintaining pulse ox on 2 L, with no leukocytosis. Her bmp was unremarkable, UA negative, CXR with bilateral opacities. Patient was given Zosyn 4.5 mg, IV lasix 40 mg, Ativan, and 10 mg Labetolol IV. Patient was just recently admitted to hospital for possible UTI, AMS, and hypoxia. She was discharged on 02/17 back to [facility] on abx. The hypoxia had no definitive cause, thought to possibly be an element of interstitial lung disease. She was set up with home oxygen by our rn case manager hospice and has apparently been doing well, walking with a walker and has some physical therapy. During that admission, patient was also seen by speech therapy for possible aspiration. She had a video swallow study done on 02/14 which showed some dysphagia and aspiration risk, but no overt aspiration. Upon arrival during this admission, it was thought that she may have had an unwitnessed aspiration event, but no evidence of that. Speech saw her again during this admission and recommends aspiration precautions and diet modification (alternate solids and liquids, extra gravies/sauces, etc). Patient's mental status has improved as of yesterday 02/22. Given patient's readmission and continued aspiration risk, palliative care is consulted to discuss goals of care. Thank you kindly for this consult. I will follow as needed. Allergies Allergy/AdvReac Type Severity Reaction Status Date / Time No Known Allergies Allergy Unverified 02/20/19 20:35 Home Medications Home Medications Medication Instructions Recorded Confirmed Type calcium carbonate-vitamin D3 1 tab PO DAILY 12/16/18 02/20/19 History [Os-[place]ixon 500 + D3] darifenacin 7.5 mg PO DAILY 12/16/18 02/20/19 History levothyroxine 75 mcg PO DAILY 12/16/18 02/20/19 History multivitamin 1 tab PO DAILY 12/16/18 02/20/19 History omega-3 fatty acids 1,000 mg PO DAILY 12/16/18 02/20/19 History pravastatin 20 mg PO HS 12/16/18 02/20/19 History telmisartan 80 mg PO BID 12/16/18 02/20/19 History aspirin [Ecotrin Low Strength] 81 mg PO QAM #30 tab 12/20/18 02/20/19 Rx latanoprost 1 drp OPB HS #15 ml 12/20/18 02/20/19 Rx Eliquis 2.5 mg PO BID 02/11/19 02/20/19 History Fleet Enema 118 ml NE DAILY PRN 02/11/19 02/20/19 History acetaminophen 650 mg PO Q4H PRN 02/11/19 02/20/19 History bisacodyl 10 mg NE DAILY PRN 02/11/19 02/20/19 History docusate sodium 100 mg PO BID 02/11/19 02/20/19 History losartan 100 mg PO DAILY 02/11/19 02/20/19 History magnesium hydroxide [Milk of 30 ml PO DAILY PRN 02/11/19 02/20/19 History Magnesia] polyethylene glycol 3350 [Miralax] 17 g PO DAILY@1200 PRN 02/11/19 02/20/19 History sennosides [Senna Lax] 8.6 mg PO DAILY@1200 PRN 02/11/19 02/20/19 History metoprolol tartrate 50 mg PO BID #60 tab 02/17/19 02/20/19 Rx dorzolamide-timolol [Cosopt] 1 drp OPB BID 02/20/19 02/20/19 History prednisone 10 mg PO DAILY 02/20/19 02/20/19 History Patient History Medical History Cognitive impairment Aortic valve vegetation DVT prophylaxis Chronic kidney disease, stage 3a Acute diastolic (congestive) heart failure (Acute) Acute respiratory failure with hypoxia (Acute) Urinary incontinence Hypothyroid Altered mental status (Acute) Hypertension (Acute) PNA (pneumonia) (Acute) Leukocytosis (Acute) Hx of glaucoma (Chronic) CVA (cerebral vascular accident) Carotid stenosis, bilateral Dysphagia (Acute) Short-term memory loss Hyperlipidemia Atrial fibrillation (Chronic) Cerebrovascular accident, embolic (Acute) Urinary tract infection (Chronic) Atrial fibrillation with rapid ventricular response (Chronic) Heart disease (Chronic) Hypertension (Chronic) Family History Other Family history non-contributory Social History Preferred Language: American Communication Ability: Impaired Communication Ability Comment: pt is confused 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 Beliefs That Will Affect Care: None marital status: / Current Living Situation: Personal Care Facility current occupational status: retired Feels Safe at Home: Yes Safety Concerns: Feels Safe At This Time Smoking Status: Never smoker Hx Alcohol Use: No Hx Substance Use: No Review of Systems Ear, Nose, Mouth, Throat: no dysphagia (patient does not note that she has any trouble swallowing) Respiratory: no cough and no dyspnea Cardiovascular: no chest pain Gastrointestinal: no abdominal pain and no nausea Musculoskeletal: no pain reported Physical Exam Constitutional: well developed and well nourished; no acute distress ENMT: external ear and nose normal, oropharynx normal Neck: normal visual inspection Respiratory: normal respiratory effort, lungs clear to auscultation Cardiovascular: Rate/Rhythm: regular rate and + irregularly irregular Vessels: dorsalis pedis pulses present Extremities: no edema Gastrointestinal (Abdomen): Inspection/Auscultation: abdomen normal to inspection and normal bowel sounds; abdomen not distended Percus earline/Palpation: abdomen soft; abdomen nontender Skin: no rashes, warm and dry Neurologic: moves all extremities and awake Psychiatric: Orientation: alert, oriented to person and oriented to place; + not oriented to time Insight: + poor insight Results & Data Vital Signs (Past 12 Hours) Vital Signs Temp Pulse Resp BP BP Pulse Ox 02/23/19 07:01 36.3 C L 80 18 164/78 H 100 02/22/19 22:50 36.8 C 74 21 143/97 H 96 Time Spent Midlevel 50 minutes with >50% of the time spent at bedside with patient discussing condition and GOC, as well as collaborating with physician and case management to discuss case.
--- NOTE | 2019-03-03 10:44 | Discharge Summary ---
Date of Service February 23, 2019 Admission HPI Per Admitting Provider 88 yo F with CVA, AFib, HTN, HLD, Hypothyroid, urinary incontinence presenting with worsening confusion. History is per chart review and report from ED physician. Patient is a poor historian due to mental status. SHe is uncertain why she was brought into hospital. She denies chest pain, sob, n/v, diarrhea, fevers, chills, urinary frequency, urgency. Patient was recently admitted 02/11- 02/17 for altered mental status. Initially, there was concern for bilateral pneumonia on CXR and patient was started on Zosyn IV. 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 Urine cx showed alpha strep. Patient was discharged on 4 days of Levaquin. During admission she had speech evaluation which showed aspiration event. Today, Patient arrived afebrile , BP elevated, maintaining pulse ox on 2 L, with no leukocytosis, bmp unremarkable, UA unremarkable, CXR with bilateral opacities ( no radiology read available) Patient was given Zosyn 4.5 mg, IV lasix 40 mg, Ativan, 10 mg Labetolol. Principal Diagnosis metabolic encephalopathy Discharge Exam GENERAL APPEARANCE: alert, oriented x 1 ( person only) and cooperative, and appears to be in no acute distress. NECK: Neck supple, non-tender without lymphadenopathy CARDIAC: Normal S1 and S2. No S3, S4 or murmurs. Rhythm is regular LUNGS: Clear to auscultation and percussion without rales, rhonchi, wheezing or diminished breath sounds. ABDOMEN: Positive bowel sounds. Soft, nondistended, nontender. No guarding or rebound. No masses. MUSKULOSKELETAL: Adequately aligned spine. ROM intact spine and extremities. No joint erythema or tenderness. Normal muscular development. EXTREMITIES: No significant deformity or joint abnormality. No edema. LOWER EXTREMITY: no edema NEUROLOGICAL: CN II-XII intact. Strength and sensation symmetric and intact throughout. SKIN: Skin normal color, texture and turgor with no lesions or eruptions. Discharge Data Allergies Allergy/AdvReac Type Severity Reaction Status Date / Time No Known Allergies Allergy Unverified 02/20/19 20:35 Consultations 02/20/19 23:34 ED Decision to Admit Stat 02/21/19 02:44 Consult Case Management - Discharge Planning Routine 02/22/19 14:54 Consult Palliative Care Routine Ordered Studies 02/20/19 21:19 CT head/brain wo con Stat Hospital Course (1) Metabolic encephalopathy: 88 yo F with CVA, AFib, HTN, HLD, Hypothyroid, urinary incontinence presenting with worsening confusion Patient arrived afebrile , BP elevated, maintaining pulse ox on 2 L, with no leukocytosis, bmp unremarkable, UA unremarkable, CXR with bilateral opacities ( no radiology read available) Patient was given Zosyn 4.5 mg, IV lasix 40 mg, Ativan, 10 mg Labetolol IV - possibly secondary to aspiration event, hypoxia given known aspiration risk. UTI is unlikely given unremarkable UA. - Start Zosyn empirically for suspected aspiration - IV NS - F/u Blood cx, F/u urine cx, F/u Cxr report On 02/22: Patient has improved in this regard. On 02/23 Patient was dicscharged. Palliative care consult was also completed as concern that patient is high risk of aspirating. Currently patient appears to have somewhat a good quality of life, but she is at high of getting ill again due to her aspiration risk. If this becomes more of an issue, patient may need to consider hospice. (2) Urinary tract infection: recently admitted with possible UTI, AMS urine cx showed alpha strep , a likely contaminant UA on this encounter unremarkable although patient was discharges on levaquin Doubt this is aplaying a role. On zosyn for possible aspiration pneumonia. Will discharge on augmentin (3) Atrial fibrillation: rate controlled Continue Metoprolol anticoagulated with Eliquis (4) Dysphagia: likely contributor to aspiration Resumed previous speech recommendations. Informed son, patient is high risk. Patient's son is open to discussing goals of care with palliative care. (5) Hypothyroid: F/u TSH Continue Synthroid (6) Chronic kidney disease, stage 3a: Cr stable continue to monitor (7) Hypertension: elevated BP on arrival Continue Metoprolol, Telmisartan Losartan appears on med list, it was not prescribed by PCP unclear if provider aware patient was already on an ARB . Added a clacium channel reta to her regimen. Recommend followup with pcp to reassess BP. (8) DVT prophylaxis: Continue Eliquis Total Time Total Time Spent Total Time Spent (In Minutes): 32 Total Time Includes: Examination of the Patient, Discharge Planning, Medication Reconciliation and Communication With Other Providers Discharge Plan Discharge Items Patient Disposition: Personal [facility] Reason For Visit: METABOLIC ENCEPHALOPATHY Discharge Diagnosis: metabolic encephalopathy Discharge Goals: Decrease discomfort Activity: Resume your previous activity Non-emergency contact: Primary Care Provider Call non-emergency contact if: you have any medication questions Follow-up/Referrals: Charles Blanchard MD [Primary Care Provider] - 03/01/19 2:10 pm (A follow up appt. has been made for you for March 01 at 2:10pm with Dr. Blanchard.) Diet: Heart Healthy Addtl Provider Instructions: You were seen for elevated blood pressure. Will discharge on antibiotics for possible aspiration pneumonia, and amlodipine in addition to your normal blood pressure medicine. Recommend PCP followup within 1 week Prescriptions: New amlodipine 2.5 mg tablet 2.5 mg PO QPM Qty: 30 RF: 0 amoxicillin-pot clavulanate 875-125 mg tablet 1 tab PO BID Qty: 10 RF: 0 amlodipine 2.5 mg tablet 2.5 mg PO HS Qty: 30 RF: 0 amoxicillin-pot clavulanate 875-125 mg tablet 1 tab PO BID Qty: 10 RF: 0 Continued multivitamin Tablet 1 tab PO DAILY RF: 0 omega-3 fatty acids 1,000 mg Capsule 1,000 mg PO DAILY RF: 0 levothyroxine 75 mcg Tablet 75 mcg PO DAILY RF: 0 telmisartan 80 mg Tablet 80 mg PO BID RF: 0 pravastatin 20 mg Tablet 20 mg PO HS RF: 0 darifenacin 7.5 mg Tablet Extended Release 24 Hr 7.5 mg PO DAILY RF: 0 calcium carbonate-vitamin D3 [Os-Nixon 500 + D3] 500 mg(1,250mg) -200 unit Tablet 1 tab PO DAILY RF: 0 aspirin [Ecotrin Low Strength] 81 mg Tablet,Delayed Release (Dr/Ec) 81 mg PO QAM Qty: 30 RF: 0 latanoprost 0.005 % Drops 1 drp OPB HS Qty: 15 RF: 0 dorzolamide-timolol [Cosopt] 22.3-6.8 mg/mL drops 1 drp OPB BID RF: 0 prednisone 10 mg tablet 10 mg PO DAILY RF: 0 docusate sodium 100 mg Capsule 100 mg PO BID RF: 0 Eliquis 2.5 mg Tablet 2.5 mg PO BID RF: 0 sennosides [Senna Lax] 8.6 mg Tablet 8.6 mg PO DAILY@1200 PRN (Reason: Constipation) RF: 0 acetaminophen 325 mg Tablet 650 mg PO Q4H PRN (Reason: Pain) RF: 0 polyethylene glycol 3350 [Miralax] 17 gram Powder In Packet 17 g PO DAILY@1200 PRN (Reason: Constipation) RF: 0 magnesium hydroxide [Milk of Magnesia] 400 mg/5 mL Suspension 30 ml PO DAILY PRN (Reason: Constipation) RF: 0 bisacodyl 10 mg Suppository 10 mg [place] DAILY PRN (Reason: Constipation) RF: 0 Fleet Enema 19-7 gram/118 mL Enema 118 ml [place] DAILY PRN (Reason: Constipation) RF: 0 metoprolol tartrate 50 mg tablet 50 mg PO BID Qty: 60 RF: 0 Discontinued losartan 100 mg Tablet 100 mg PO DAILY RF: 0 Stand-Alone Forms: [facility] Discharge Orders: Discharge Order (Routine); Ordered 02/23/19 Ordered By: Tima Garsia Admission Data Admit Date/Time: 02/21/19 01:20 Attending Provider: Tima Garsia Admit Provider: Km Hairston Primary Care Provider: Charles Blanchard Other Providers: Km Hairston ; Nida Rios Service: Medical Other Interventions: Discharge Summary Assessment (RN) Last Done: 02/23/19 16:41 DC Date/Time DO NOT enter until pt leaves facility: 02/23/19 18:17
== END 2019-02-23 18:17 | disposition home or self-care (01) | DRG 177 ==
LOC: ED 19:49 → 2W 02-21 01:20 → SUATTDRO 02-21 01:20 → 2W 02-21 02:17
DX: R13.10 Dysphagia, unspecified; I48.91 Unspecified atrial fibrillation; Z79.82 Long term (current) use of aspirin; G93.41 Metabolic encephalopathy; I12.9 Hypertensive chronic kidney disease with stage 1 through stage 4 chronic kidney disease, or unspecified chronic kidney disease; J69.0 Pneumonitis due to inhalation of food and vomit; Z51.5 Encounter for palliative care; N18.3 Chronic kidney disease, stage 3 (moderate); E03.9 Hypothyroidism, unspecified

== ENCOUNTER 2019-04-27 00:07 | Inpatient (IN) ==
[2019-04-27] MEDS ORDERED: HydrALAZINE HCL 20 MG/ML VIAL IV STA (00:26)
[2019-04-27 00:57] LABS: Basophils # (auto) 0.09 K/uL (0-0.2); Eosinophils % (auto) 3.2 %; Hematocrit (blood only) 37.6 % (37-47); Immature Granulocytes # (auto) 0.04 K/uL (0.00-0.02); Immature Granulocytes % (auto) 0.4 %; Lymphocytes # (auto) 2.84 K/uL (1.2-3.4); Lymphocytes % (auto) 30.1 %; Mean Corpuscular Hgb Conc 31.9 g/dL (32-36); Mean Corpuscular Volume 92.6 fL (80-100); Mean Platelet Volume 9.3 fL (7.4-10.4); Monocytes # (auto) 0.79 K/uL (0.11-0.59); Monocytes % (auto) 8.4 %; Neutrophils # (auto) 5.39 K/uL (1.4-6.5); Neutrophils % (auto) 56.9 %; Platelet Count 316 K/uL (130-400); RDW Coefficient of Variation 16.2 % (11.5-14.5); RDW Standard Deviation 53.5 fL (36.4-46.3); Red Blood Count 4.06 M/uL (4.2-5.4); White Blood Count 9.45 K/uL (4.8-10.8)
[2019-04-27] MEDS ORDERED: FUROSEMIDE 40 MG/4 ML VIAL IV STA (01:08)
[2019-04-27 01:14] LABS: Appearance Urine Cloudy (Clear); Bacteria Urine Automated 2+ (Negative); Bilirubin Urine Negative (Negative); Blood Urine Negative (Negative); Cast Urine Automated 0 /lpf (0-5); Color Urine Yellow; Epithelial Cell Urine Auto 20-30 /lpf (0-5); Glucose Urine UA Negative (Negative); Ketones Urine Negative (Negative); Leukocyte Esterase Urine Negative (Negative); Nitrite Urine Negative (Negative); RBC Urine Automated 0-4 /hpf (0-4); Specific Gravity Urine 1.016 (1.000-1.030); Urobilinogen Urine Negative (Negative); pH Urine 7.5 (4.5-7.5)
[2019-04-27 01:17] LABS: Albumin Level 3.2 gm/dl (3.4-5.0); BUN Creatinine Ratio 29.1 (10-20); Calcium 9.2 mg/dl (8.5-10.1); Creatinine Clr Calc Pharmacy 42.3 ml/min; Est GFR (African American) 84.6; Magnesium 2.1 mg/dl (1.8-2.4)
[2019-04-27 01:27] LABS: Albumin Globulin Ratio 0.8 (0.9-2); Globulin 4.1 gm/dl (2.5-4.0); Total Protein 7.3 gm/dl (6.4-8.2)
[2019-04-27 01:30] LABS: Protein Urine 2+ (Negative)
[2019-04-27 01:40] LABS: T4 Free Thyroxine 1.12 ng/dl (0.8-1.6)
[2019-04-27] MEDS ORDERED: AMLODIPINE BESYLATE 5 MG TAB PO ONE (02:15)
--- NOTE | 2019-04-27 02:19 | Emergency Department Note ---
Entered by Winston Gregory acting as a scribe for History of Present Illness General Chief complaint: Hypertension Stated complaint: hypertension, low pulse ox Time Seen by Provider: 04/27/19 00:10 Source: patient and family History of Present Illness Onset (ago): hour(s) (this evening) Location: chest Pain Consistency: + constant Quality: + other (HTN) Exacerbated By: + other (possibly missing her medication) Associated symptoms: + denies other symptoms (vomiting, visual changes); no chest pain and no headaches The patient is an 89 y/o female who presents to the ED w/ CC of constant hypertension beginning this evening. The patient states she is not sure why her blood pressure is this high, and she thinks she has been taking her medication. She reports she lives in [place] at the [facility]. The patient notes that although taking her medication, she does not think she took it this evening. She states she does not know how it was discovered that she had low b lood pressure. The patient denies headaches, chest pain, recent illness, vomiting, and visual changes. The patient's son states she has been having trouble with her oxygen for the past few weeks, and she wears oxygen all the time. He reports she was evaluated by the PCP the other day because she was complain of pain in her back. The son notes that was when her O2 level was noticed to be low, so she was brought to the ED. He states she had chest, back, and spine x-rays that were not able to find the source of the patient's pain. The son reports the images showed she had arthritis, and that was it. He notes 4-5 months ago, she had several TIAs. The son states since then, she is going downhill. He reports he visited her today, and she had intense pain again and was not able to walk to the bathroom by herself. Home Medications Home Medications Medication Instructions Recorded Confirmed Type calcium carbonate-vitamin D3 1 tab PO DAILY 12/16/18 04/27/19 History [Os-Nixon 500 + D3] darifenacin 7.5 mg PO DAILY 12/16/18 04/27/19 History levothyroxine 75 mcg PO DAILY 12/16/18 04/27/19 History multivitamin 1 tab PO DAILY 12/16/18 04/27/19 History omega-3 fatty acids 1,000 mg PO DAILY 12/16/18 04/27/19 History pravastatin 20 mg PO HS 12/16/18 04/27/19 History telmisartan 80 mg PO BID 12/16/18 04/27/19 History aspirin [Ecotrin Low Strength] 81 mg PO QAM #30 tab 12/20/18 04/27/19 Rx latanoprost 1 drp OPB HS #15 ml 12/20/18 04/27/19 Rx Eliquis 2.5 mg PO BID 02/11/19 04/27/19 History acetaminophen 650 mg PO Q4H PRN 02/11/19 04/27/19 History bisacodyl 10 mg [place] DAILY PRN 02/11/19 04/27/19 History docusate sodium 100 mg PO BID 02/11/19 04/27/19 History magnesium hydroxide [Milk of 30 ml PO DAILY PRN 02/11/19 04/27/19 History Magnesia] polyethylene glycol 3350 [Miralax] 17 g PO DAILY@1200 PRN 02/11/19 04/27/19 History sennosides [Senna Lax] 8.6 mg PO DAILY@1200 PRN 02/11/19 04/27/19 History metoprolol tartrate 50 mg PO BID #60 tab 02/17/19 04/27/19 Rx prednisone 10 mg PO DAILY 02/20/19 04/27/19 History amlodipine 2.5 mg PO QPM #30 tab 02/23/19 04/27/19 Rx losartan 100 mg PO DAILY 04/24/19 04/27/19 History Allergies Allergy/AdvReac Type Severity Reaction Status Date / Time No Known Allergies Allergy Unverified 04/27/19 01:53 Past Med/Surg History Medical History Cognitive impairment Aortic valve vegetation DVT prophylaxis Chronic kidney disease, stage 3a Acute diastolic (congestive) heart failure (Acute) Acute respiratory failure with hypoxia (Acute) Urinary incontinence Hypothyroid Altered mental status (Acute) Hypertension (Acute) PNA (pneumonia) (Acute) Leukocytosis (Acute) Hx of glaucoma (Chronic) CVA (cerebral vascular accident) Carotid stenosis, bilateral Dysphagia (Acute) Short-term memory loss Hyperlipidemia Atrial fibrillation (Chronic) Cerebrovascular accident, embolic (Acute) Urinary tract infection (Chronic) Atrial fibrillation with rapid ventricular response (Chronic) Heart disease (Chronic) Hypertension (Chronic) Surgical History No pertinent past surgical history Family History Other Family history non-contributory Social History Preferred Language: Syriac Communication Ability: Impaired [employer]ball [employer] Required: No Beliefs That Will Affect Care: None marital status: / Current Living Situation: Personal Care Facility current occupational status: retired Feels Safe at Home: Yes Smoking Status: Never smoker Hx Alcohol Use: No Hx Substance Use: No Review of Systems See HPI for pertinent positives & negatives. and A total of 10 systems reviewed and were otherwise negative Physical Exam Vital Signs Vital Signs - 24 hr 04/27/19 00:22 04/27/19 00:49 04/27/19 01:14 Temperature 37.2 C Temperature Source Oral Sepsis Recent Fever Within 48 Hours No Sepsis Action Taken by Nursing No Action Required Pulse Rate 83 80 88 Pulse Rate [Right Finger] Pulse Rate from SpO2 Sensor 80 85 Pulse Rhythm Regular Pulse Strength Normal Respiratory Rate 25 H 28 H 24 Respiratory Effort / Characteristics Non-Labored Respiratory Depth Normal Respiratory Pattern Regular Blood Pressure 213/139 H 179/118 H 150/116 H Blood Pressure [Right Arm] Blood Pressure Mean 163 138 127 Blood Pressure Mean [Right Arm] Blood Pressure Position Sitting Blood Pressure Position [Right Arm] Pulse Oximetry 88 L 92 94 Oxygen Delivery Method Nasal Cannula Nasal Cannula Oxygen Flow Rate 2 4 04/27/19 01:15 04/27/19 01:30 04/27/19 02:00 Temperature Temperature Source Sepsis Recent Fever Within 48 Hours Sepsis Action Taken by Nursing Pulse Rate 84 77 Pulse Rate [Right Finger] 87 Pulse Rate from SpO2 Sensor 89 82 Pulse Rhythm Pulse Strength Respiratory Rate 20 23 26 H Respiratory Effort / Characteristics Non-Labored Spontaneous Respiratory Depth Normal Respiratory Pattern Regular Blood Pressure 148/71 H 163/94 H Blood Pressure [Right Arm] 150/116 H Blood Pressure Mean 96 117 Blood Pressure Mean [Right Arm] 127 Blood Pressure Position Blood Pressure Position [Right Arm] Lying Pulse Oximetry 94 95 93 Oxygen Delivery Method Nasal Cannula Oxygen Flow Rate 4 Vital signs reviewed. Noted to be HTN. On nasal canula O2. General: Well-appearing older female, in no significant distress. HEENT: No scleral icterus, PERRLA, neck supple. Atraumatic. Cardiovascular: Regular rate and rhythm, no extra sounds. Pulmonary: Right greater than left coarse breath sounds, normal work of breathing. Abdomen: Soft, nontender, nondistended, positive bowel sounds. Musculoskeletal: Atraumatic, no peripheral edema. No pain with ROM of the bilateral knees and hips. Able to sit forward without difficulty or pain. Neurologic: Patient awake alert. Answers some question appropriately. Hard of hearing. Skin: Warm, dry, no rash Course 0024: Past medical records reviewed. The patient was evaluated in room A11B. A complete history and physical examination was performed. 0124: Upon reevaluation, the patient is resting comfortably. I discussed laboratory and radiographic results with the patient and her family. They sarai balized agreement of the treatment plan. The patient will be evaluated for further management and care. 0208: Dr. Diaz, [facility] Hospitalist will evaluate the patient for further management and care. Administered Medications Acetaminophen (Tylenol) 650 mg PO Q4H PRN PRN Reason: Fever Or Pain Stop: 05/27/19 03:07 Last Admin: 04/27/19 03:58 Dose: 650 mg Documented by: [id number] Levothyroxine Sodium (Synthroid) 75 mcg PO DAILYBB [facility] Stop: 05/27/19 06:29 Last Admin: 04/27/19 05:32 Dose: 75 mcg Documented by: [id number] Discontinued Medications Amlodipine Besylate (Norvasc) 2.5 mg PO NOW ONE Stop: 04/27/19 02:16 Last Admin: 04/27/19 02:46 Dose: 2.5 mg Documented by: [id number] Furosemide (Lasix) 40 mg IV NOW STA Stop: 04/27/19 01:09 Last Admin: 04/27/19 01:15 Dose: 40 mg Documented by: [id number] Hydralazine HCl (Hydralazine Hcl) 10 mg IV NOW STA Stop: 04/27/19 00:27 Last Admin: 04/27/19 00:57 Dose: 10 mg Documented by: [id number] Vancomycin HCl 1,500 mg/ (Sodium Chloride) 530 mls @ 200 mls/hr IV TODAY@0330 [facility] Stop: 04/27/19 06:08 Last Infusion: 04/27/19 06:20 Dose: 0 mls/hr Documented by: [id number] Admin: 04/27/19 03:41 Dose: 200 mls/hr Documented by: [id number] Piperacillin Sod/Tazobactam (Sod 3.375 gm/ Dextrose) 115 mls @ 230 mls/hr IV NOW ONE; Protocol Stop: 04/27/19 03:59 Last Infusion: 04/27/19 04:13 Dose: 0 mls/hr Documented by: [id number] Admin: 04/27/19 03:40 Dose: 230 mls/hr Documented by: [id number] Medical Decision Making Differential Diagnosis Differential diagnoses includes but is not limited to pneumonia, bronchitis, FLOW COORDINATOR D/Asthma exacerbation, pneumothorax, pulmonary embolism, congestive heart failure, acute coronary syndrome Medical Records Attestation: I reviewed the patient's medical records. Home Medications Current Medication List: was personally reviewed by me Laboratory Data Attestation: I reviewed the patient's lab results. Result diagrams: 04/27/19 00:45 04/27/19 00:45 Lab Results 04/27/19 04/27/19 04/27/19 Range/Units 00:45 00:45 01:00 WBC 9.45 (4.8-10.8) K/uL RBC 4.06 L (4.2-5.4) M/uL Hgb 12.0 (12.0-16.0) g/dL Hct 37.6 (37-47) % MCV 92.6 (80-100) fL MCH 29.6 (25-34) pg MCHC 31.9 L (32-36) g/dL RDW Std Deviation 53.5 H (36.4-46.3) fL RDW Coeff of Nicole 16.2 H (11.5-14.5) % Plt Count 316 (130-400) K/uL MPV 9.3 (7.4-10.4) fL Immature Gran % (Auto) 0.4 % Neut % (Auto) 56.9 % Lymph % (Auto) 30.1 % [place] % (Auto) 8.4 % Eos % (Auto) 3.2 % Baso % (Auto) 1.0 % Immature Gran # (Auto) 0.04 H (0.00-0.02) K/uL Neut # (Auto) 5.39 (1.4-6.5) K/uL Lymph # (Auto) 2.84 (1.2-3.4) K/uL [place] # (Auto) 0.79 H (0.11-0.59) K/uL Eos # (Auto) 0.30 (0-0.5) K/uL Baso # (Auto) 0.09 (0-0.2) K/uL Sodium 142 (136-145) mmol/L Potassium 4.0 (3.5-5.1) mmol/L Chloride 110 H (98-107) mmol/L Carbon Dioxide 26 (21-32) mmol/L Anion Gap 6.0 (3-11) BUN 21 H (7-18) mg/dl Creatinine 0.73 (0.6-1.2) mg/dl Est Cr Clr Drug Dosing 42.3 ml/min Est GFR ( Amer) 84.6 Est GFR (Non-Af Amer) 73.0 BUN/Creatinine Ratio 29.1 H (10-20) Glucose 114 H (70-99) mg/dl Calcium 9.2 (8.5-10.1) mg/dl Magnesium 2.1 (1.8-2.4) mg/dl Total Bilirubin 1.0 (0.2-1) mg/dl AST 58 H (15-37) U/L ALT 69 (12-78) U/L Alkaline Phosphatase 168 H (45-117) U/L Total Protein 7.3 (6.4-8.2) gm/dl Albumin 3.2 L (3.4-5.0) gm/dl Globulin 4.1 H (2.5-4.0) gm/dl Albumin/Globulin Ratio 0.8 L (0.9-2) TSH 6.230 H (0.300-4.500) uIu/ml Free T4 1.12 (0.8-1.6) ng/dl Urine Color Yellow Urine Appearance Cloudy A (Clear) Urine pH 7.5 (4.5-7.5) Ur Specific Walker 1.016 (1.000-1.030) Urine Protein 2+ H (Negative) Urine Glucose (UA) Negative (Negative) Urine Ketones Negative (Negative) Urine Blood Negative (Negative) Urine Nitrite Negative (Negative) Urine Bilirubin Negative (Negative) Urine Urobilinogen Negative (Negative) Ur Leukocyte Esterase Negative (Negative) Urine WBC (Auto) 1-5 (0-5) /hpf Urine RBC (Auto) 0-4 (0-4) /hpf U Hyaline Cast (Auto) 0 (0-5) /lpf U Epithel Cells (Auto) 20-30 H (0-5) /lpf Urine Bacteria (Auto) 2+ H (Negative) Imaging Data Attestation: I personally reviewed and interpreted this imaging study as follows: My Impression: XR chest 1V Portable: CHF, cardiomegaly. ECG Data Attestation: I personally reviewed and interpreted this ECG as follows: Indication: other (HTN) Rate (beats per minute): 76 Rhythm: atrial fibrillation Findings: + other (Right ventricular hypertrophy, poor quality baseline for interpretation, repolarization abnormality.) and + RBBB (incomplete); no ST depression, no ST elevation and no acute ischemic change Blood Pressure Blood Pressure Findings: Elevated blood pressure Blood Pressure Disposition: further management by hospitalist MDM Narrative This patient was evaluated and appeared to be in no significant distress. Physical examination reveals an elderly woman on nasal cannula oxygen. Chest x- ray is consistent with congestive heart failure. Patient was given 10 mg of IV hydralazine for marked hypertension as well as 40 mg of IV Lasix. It is unclear to me if the patient took her evening medications. She was given an additional 2.5 mg of p.o. amlodipine. EKG reveals no evidence of acute ischemia but the patient is in a rate controlled atrial fibrillation. Patient is anticoagulated with Eliquis chronically. Given the patient's hypertension CHF and hypoxia, she will be evaluated by the hospitalist service for admission and further management. Impression & Plan CHF (congestive heart failure), Hypertension, Hypoxia Critical Care Time Critical Care Time: Yes (30) I have personally spent greater than 30 minutes of critical care time in the direct management of this patient. This includes bedside care, interpretation of diagnostic studies, and testing, discussion with consultants, patient, and family members, and other required patient management activities. This 30 minutes is in excess of all separately billable procedures. Discharge Plan Visit Data *Final* Discharge Date/Time: 04/27/19 02:47 Chief Complaint: Hypertension Stated Complaint: hypertension, low pulse ox ED Provider: Marychuy Bartholomew Discharge Problem: CHF (congestive heart failure), Hypertension, Hypoxia Patient Disposition: Admitted As Inpatient Discharge Instructions Interventions: ED Discharge Assessment Last Done: 04/27/19 02:47 Discharge Problem: CHF (congestive heart failure) Qualifiers: Heart failure type: unspecified Heart failure chronicity: acute on chronic Qualified Code(s): I50.9 - Heart failure, unspecified Hypertension Qualifiers: Hypertension type: essential hypertension Qualified Code(s): I10 - Essential (primary) hypertension The scribe's documentation has been prepared under my direction and personally reviewed by me in its entirety. I confirm that the note above accurately reflects all work, treatment, procedures, and medical decision making performed by me.
[2019-04-27] MEDS ORDERED: VANCOMYCIN CONSULT ACTIVE PRN (03:08)
[2019-04-27] MEDS ORDERED: MAGNESIUM HYDROXIDE SUSP 30 ML UDC PO PRN ×2 (03:08)
[2019-04-27] MEDS ORDERED: POLYETHYLENE (MIRALAX) 17 GM PACK PO PRN ×2 (03:08→12:00)
[2019-04-27] MEDS ORDERED: ONDANSETRON INJ 2 MG/ML 2 ML VIAL IV PRN (03:08)
[2019-04-27] MEDS ORDERED: ACETAMINOPHEN 325 MG TAB PO PRN ×2 (03:08)
[2019-04-27] MEDS ORDERED: PIPERACILLIN/TAZOBACTAM 4.5 GM in DEXTROSE 5% 100 ML IV SCH (03:08)
[2019-04-27] MEDS ORDERED: ALUMINUM/MAGNESIUM SUSP 30 ML UDC PO PRN (03:08)
[2019-04-27] MEDS ORDERED: VANCOMYCIN HCL 1,000 MG in SODIUM CHLORIDE 0.9% 250 ML IV SCH (03:08)
[2019-04-27] MEDS ORDERED: BISACODYL 10 MG SUPP PR PRN (03:08)
[2019-04-27] MEDS ORDERED: PIPERACILL/TAZOBAC CONSULT ACTIVE PRN (03:08)
[2019-04-27] MEDS ORDERED: VANCOMYCIN HCL 1,500 MG in SODIUM CHLORIDE 0.9% 500 ML IV SCH (03:30)
[2019-04-27] MEDS ORDERED: PIPERACILLIN/TAZOBACTAM 3.375 GM in DEXTROSE 5% 100 ML IV ONE (03:30)
--- NOTE | 2019-04-27 04:28 | History & Physical Report ---
Date of Service April 27, 2019 Assessment & Plan (1) Acute respiratory failure with hypoxia: Secondary to combination of acute CHF and probable aspiration pneumonia, both of which will be treated. Present on Admission?: Yes (2) CHF (congestive heart failure): Given Lasix 40 mg IV in the ED, and will continue every morning. Present on Admission?: Yes (3) Aspiration pneumonia: Place on vancomycin IV, Zosyn IV and DuoNeb's Present on Admission?: Yes (4) Metabolic encephalopathy: Metabolic encephalopathy contributing to underlying cognitive impairment, with worsening interaction. Discussed with family reassessment after treatment is completed. 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 Continue treatment of hypertension, hyperlipidemia Present on Admission?: Yes (6) Chronic kidney disease, stage 3a: Creatinine stable at 0.73. Present on Admission?: Yes (7) Atrial fibrillation: Atrial fibrillation/hypertension- Continue amlodipine, aspirin, Eliquis, losartan and metoprolol tartrate. Hold telmisartan, as patient is already on losartan. Present on Admission?: Yes (8) Hypertension: See above Present on Admission?: Yes (9) Hypothyroid: Continue levothyroxine 75 mcg by mouth daily Present on Admission?: Yes History of Present Illness Chief Complaint: The patient presents to the emergency department with family after family was called by her [facility] due to concerns regarding low pulse ox and elevated blood pressure. Primary Care Provider: Charles Blanchard MD The patient herself was not able to contribute significantly to HPI or review of systems due to baseline dementia. The patient is a 89-year old female resident of [facility], who is brought to the emergency department by family due to concerns regarding low pulse ox and elevated blood pressure recorded earlier in the day there. The patient had initially been brought by family to the ED on 04/24/2019 due to shortness of breath. Work-up at that time included a chest x-ray that was normal and laboratories that were normal. During her work-up in the ED tonight, chest x-ray is significantly worse, showing a mixture of CHF and probable aspiration pneumonia, and oxygenation is showing more hypoxia as well. Her son no longer feels that she is able to be taking care of at just the personal usp level such as Nicholas, and has asked questions about changing her type of residents after discharge to that of assisted living. Allergies Allergy/AdvReac Type Severity Reaction Status Date / Time No Known Allergies Allergy Unverified 04/27/19 01:53 Home Medications Home Medications Medication Instructions Recorded Confirmed Type calcium carbonate-vitamin D3 1 tab PO DAILY 12/16/18 04/27/19 History [[place] 500 + D3] darifenacin 7.5 mg PO DAILY 12/16/18 04/27/19 History levothyroxine 75 mcg PO DAILY 12/16/18 04/27/19 History multivitamin 1 tab PO DAILY 12/16/18 04/27/19 History omega-3 fatty acids 1,000 mg PO DAILY 12/16/18 04/27/19 History pravastatin 20 mg PO HS 12/16/18 04/27/19 History telmisartan 80 mg PO BID 12/16/18 04/27/19 History aspirin [Ecotrin Low Strength] 81 mg PO QAM #30 tab 12/20/18 04/27/19 Rx latanoprost 1 drp OPB HS #15 ml 12/20/18 04/27/19 Rx Eliquis 2.5 mg PO BID 02/11/19 04/27/19 History acetaminophen 650 mg PO Q4H PRN 02/11/19 04/27/19 History bisacodyl 10 mg VT DAILY PRN 02/11/19 04/27/19 History docusate sodium 100 mg PO BID 02/11/19 04/27/19 History magnesium hydroxide [Milk of 30 ml PO DAILY PRN 02/11/19 04/27/19 History Magnesia] polyethylene glycol 3350 [Miralax] 17 g PO DAILY@1200 PRN 02/11/19 04/27/19 History sennosides [Senna Lax] 8.6 mg PO DAILY@1200 PRN 02/11/19 04/27/19 History metoprolol tartrate 50 mg PO BID #60 tab 02/17/19 04/27/19 Rx prednisone 10 mg PO DAILY 02/20/19 04/27/19 History amlodipine 2.5 mg PO QPM #30 tab 02/23/19 04/27/19 Rx losartan 100 mg PO DAILY 08/19/19 08/22/19 History Past Med/Surg History Medical History Cognitive impairment Aortic valve vegetation DVT prophylaxis Chronic kidney disease, stage 3a Acute diastolic (congestive) heart failure (Acute) Acute respiratory failure with hypoxia (Acute) Urinary incontinence Hypothyroid Altered mental status (Acute) Hypertension (Acute) PNA (pneumonia) (Acute) Leukocytosis (Acute) Hx of glaucoma (Chronic) CVA (cerebral vascular accident) Carotid stenosis, bilateral Dysphagia (Acute) Short-term memory loss Hyperlipidemia Atrial fibrillation (Chronic) Cerebrovascular accident, embolic (Acute) Urinary tract infection (Chronic) Atrial fibrillation with rapid ventricular response (Chronic) Heart disease (Chronic) Hypertension (Chronic) Surgical History No pertinent past surgical history Family History Other Family history non-contributory Social History Preferred Language: Qatari Communication Ability: Impaired It Infrastructure Architect Required: No Beliefs That Will Affect Care: None marital status: / Current Living Situation: Personal Care Facility current occupational status: retired Feels Safe at Home: Yes Smoking Status: Never smoker Hx Alcohol Use: No Hx Substance Use: No Review of Systems Review of Systems: Unobtainable due to cognitive status Physical Exam Physical Exam: The patient is awake, alert and oriented 1, well developed and well nourished, normocephalic and atraumatic, lying in bed and in no acute distress. HEENT--PERRL, EOMI, mucous membranes and oropharynx dry. Patient is frequently clearing her throat. Neck--supple. No JVD. No bruits. Thyroid normal, trachea midline, no adenopathy. Heart--normal S1 and S2. No murmurs, rubs or gallops. Lungs--coarse breath sounds bilaterally, with scattered wheezes. No respiratory distress, no accessory muscle use. Abdomen--normal bowel sounds and soft. Nontender. Nondistended. Extremities--no cyanosis or clubbing. No edema. There are good distal pulses b/l. Dermatologic--normal skin turgor, normal color, no abnormal lymph nodes, no rash. Neurologic--cranial nerves II through XII grossly intact. Rheumatologic--normal range of motion. Psychiatric--dementia with normal affect Results & Data Vital Signs (Past 12 Hours) Vital Signs Temp Pulse Pulse Resp BP BP Pulse Ox 04/27/19 03:15 98.2 F 86 24 168/100 H 96 04/27/19 02:31 87 26 H 154/82 H 94 04/27/19 02:00 77 26 H 163/94 H 93 04/27/19 01:30 84 23 148/71 H 95 04/27/19 01:15 87 20 150/116 H 94 04/27/19 01:14 88 24 150/116 H 94 04/27/19 00:49 80 28 H 179/118 H 92 04/27/19 00:22 99.0 F 83 25 H 213/139 H 88 L Laboratory Results Laboratory Results WBC 9.45 K/uL (4.8-10.8) 04/27/19 00:45 RBC 4.06 M/uL (4.2-5.4) L 04/27/19 00:45 Hgb 12.0 g/dL (12.0-16.0) 04/27/19 00:45 Hct 37.6 % (37-47) 04/27/19 00:45 MCV 92.6 fL (80-100) 04/27/19 00:45 MCH 29.6 pg (25-34) 04/27/19 00:45 MCHC 31.9 g/dL (32-36) L 04/27/19 00:45 RDW Std Deviation 53.5 fL (36.4-46.3) H 04/27/19 00:45 RDW Coeff of Nicole 16.2 % (11.5-14.5) H 04/27/19 00:45 Plt Count 316 K/uL (130-400) 04/27/19 00:45 MPV 9.3 fL (7.4-10.4) 04/27/19 00:45 Immature Gran % (Auto) 0.4 % 04/27/19 00:45 Neut % (Auto) 56.9 % 04/27/19 00:45 Lymph % (Auto) 30.1 % 04/27/19 00:45 [place] % (Auto) 8.4 % 04/27/19 00:45 Eos % (Auto) 3.2 % 04/27/19 00:45 Baso % (Auto) 1.0 % 04/27/19 00:45 Immature Gran # (Auto) 0.04 K/uL (0.00-0.02) H 04/27/19 00:45 Neut # (Auto) 5.39 K/uL (1.4-6.5) 04/27/19 00:45 Lymph # (Auto) 2.84 K/uL (1.2-3.4) 04/27/19 00:45 [place] # (Auto) 0.79 K/uL (0.11-0.59) H 04/27/19 00:45 Eos # (Auto) 0.30 K/uL (0-0.5) 04/27/19 00:45 Baso # (Auto) 0.09 K/uL (0-0.2) 04/27/19 00:45 Sodium 142 mmol/L (136-145) 04/27/19 00:45 Potassium 4.0 mmol/L (3.5-5.1) 04/27/19 00:45 Chloride 110 mmol/L (98-107) H 04/27/19 00:45 Carbon Dioxide 26 mmol/L (21-32) 04/27/19 00:45 Anion Gap 6.0 (3-11) 04/27/19 00:45 BUN 21 mg/dl (7-18) H 04/27/19 00:45 Creatinine 0.73 mg/dl (0.6-1.2) 04/27/19 00:45 Est Cr Clr Drug Dosing 42.3 ml/min 04/27/19 00:45 Est GFR ( Amer) 84.6 04/27/19 00:45 Est GFR (Non-Af Amer) 73.0 04/27/19 00:45 BUN/Creatinine Ratio 29.1 (10-20) H 04/27/19 00:45 Glucose 114 mg/dl (70-99) H 04/27/19 00:45 Calcium 9.2 mg/dl (8.5-10.1) 04/27/19 00:45 Magnesium 2.1 mg/dl (1.8-2.4) 04/27/19 00:45 Total Bilirubin 1.0 mg/dl (0.2-1) 04/27/19 00:45 AST 58 U/L (15-37) H 04/27/19 00:45 ALT 69 U/L (12-78) 04/27/19 00:45 Alkaline Phosphatase 168 U/L (45-117) H 04/27/19 00:45 Total Protein 7.3 gm/dl (6.4-8.2) 04/27/19 00:45 Albumin 3.2 gm/dl (3.4-5.0) L 04/27/19 00:45 Globulin 4.1 gm/dl (2.5-4.0) H 04/27/19 00:45 Albumin/Globulin Ratio 0.8 (0.9-2) L 04/27/19 00:45 TSH 6.230 uIu/ml (0.300-4.500) H 04/27/19 00:45 Free T4 1.12 ng/dl (0.8-1.6) 04/27/19 00:45 Urine Color Yellow 04/27/19 01:00 Urine Appearance Cloudy (Clear) A 04/27/19 01:00 Urine pH 7.5 (4.5-7.5) 04/27/19 01:00 Ur Specific [place] 1.016 (1.000-1.030) 04/27/19 01:00 Urine Protein 2+ (Negative) H 04/27/19 01:00 Urine Glucose (UA) Negative (Negative) 04/27/19 01:00 Urine Ketones Negative (Negative) 04/27/19 01:00 Urine Blood Negative (Negative) 04/27/19 01:00 Urine Nitrite Negative (Negative) 04/27/19 01:00 Urine Bilirubin Negative (Negative) 04/27/19 01:00 Urine Urobilinogen Negative (Negative) 04/27/19 01:00 Ur Leukocyte Esterase Negative (Negative) 04/27/19 01:00 Urine WBC (Auto) 1-5 /hpf (0-5) 04/27/19 01:00 Urine RBC (Auto) 0-4 /hpf (0-4) 04/27/19 01:00 U Hyaline Cast (Auto) 0 /lpf (0-5) 04/27/19 01:00 U Epithel Cells (Auto) 20-30 /lpf (0-5) H 04/27/19 01:00 Urine Bacteria (Auto) 2+ (Negative) H 04/27/19 01:00 Code Status & VTE Plan Code Status DNR/DNI VTE Prophylaxis Plan VTE Prophylaxis will be ordered: Yes PG Care Time/CCT Total # of Minutes Spent Total Time Spent with Patient: Total time spent is greater than 50% in coordination of care (as documented) at patient's floor/unit and/or counseling patient: (1) CHF (congestive heart failure) Heart failure chronicity: acute on chronic Heart failure type: unspecified Qualified Code(s): I50.9 - Heart failure, unspecified (2) Atrial fibrillation Atrial fibrillation type: chronic Qualified Code(s): I48.2 - Chronic atrial fibrillation (3) Hypothyroid Hypothyroidism type: acquired Qualified Code(s): E03.9 - Hypothyroidism, unspecified (4) Hypertension Hypertension type: essential hypertension Qualified Code(s): I10 - Essential (primary) hypertension
[2019-04-27] MEDS: LEVOTHYROXINE SODIUM 75 MCG TABLET PO SCH (05:32)
--- NOTE | 2019-04-27 06:42 | XRay Report ---
XR chest 1V portable CLINICAL HISTORY: weakness COMPARISON STUDY: Chest CT February 16, 2019. Chest radiograph April 24, 2019. FINDINGS: Cardiomegaly and extensive mitral calcification is again noted. There is no pneumothorax. T here are small bilateral pleural effusions. Interstitial thickening and bilateral opacities have prog ressed. IMPRESSION: 1. Progression of interstitial thickening and bilateral opacities which favors pulmonary edema. 2. Small bilateral pleural effusions. Electronically signed by: Taras Ahuja M.D. 04/27/2019 6:40 AM
[2019-04-27] MEDS: ALBUT/IPRATROP 3MG/0.5MG NEB 3 ML VIAL NEB SCH ×4 (07:27→19:06)
[2019-04-27] MEDS: ASPIRIN 81 MG ECTAB PO SCH (08:26)
[2019-04-27] MEDS: FUROSEMIDE 40 MG in SYRINGE 0 ML IV SCH (08:26)
[2019-04-27] MEDS: predniSONE 10 MG TABLET PO SCH (08:27)
[2019-04-27] MEDS: LOSARTAN POTASSIUM 50 MG TAB PO SCH (08:27)
[2019-04-27] MEDS: APIXABAN 2.5 MG TAB PO SCH ×2 (08:28→20:37)
[2019-04-27] MEDS: METOPROLOL TARTRATE 50 MG TAB PO SCH ×2 (08:28→20:37)
[2019-04-27] MEDS: MULTIVITAMIN TAB PO SCH (08:28)
[2019-04-27] MEDS: CALCIUM 600MG + VIT D 400 IU TAB PO SCH (08:28)
[2019-04-27] MEDS: DOCUSATE SODIUM 100 MG CAP PO SCH ×2 (08:30→20:44)
[2019-04-27] MEDS ORDERED: PIPERACILLIN/TAZOBACTAM 3.375 GM in DEXTROSE 5% 100 ML IV SCH (09:00)
[2019-04-27] MEDS ORDERED: SENNA 8.6 MG TAB PO PRN (12:00)
--- NOTE | 2019-04-27 16:43 | Family Medicine Progress Note ---
Date of Service April 27, 2019 Assessment & Plan (1) CHF (congestive heart failure): 89 y/o F with PMH Dementia, HTN, hypothyroid, CHF, CKD III, A fib with recent ED visit on 04/24 for SOB with unremarkable workup presents from [facility] with concerns for low pulse ox found to have significantly worse CXR favouring CHF exacerbation. Acute respiratory failure with hypoxia -2/2 acute CHF -CXR: Progression of interstitial thickening and bilateral opacities which fa vors pulmonary edema. Small bilateral pleural effusions. -on admit, thought to have ?aspiration pneumonia and started on vancomycin IV, Zosyn IV. 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 -Metabolic encephalopathy contributing to underlying cognitive impairment, with worsening interaction -CM working on snf placement for higher level of care CKD III -Creatinine stable HTN/Atrial fibrillation -Continue amlodipine 2.5 mg, aspirin 81mg, Eliquis 2.5 mg BID, losartan 100 mg and metoprolol tartrate 50 mg BID. Holding telmisartan, as patient is already on losartan Hypothyroid -Continue levothyroxine 75 mcg FEN/GI: HH Diet DVT Prophylaxis: Apixaban DNR/DNI Dispo: PCU Tele. CM working on snf placement Supervising Physician Co-Signing Physician Notes I personally examined the patient and verified all beatty points of history and exam, discussed case, and agree with decision making with Dr Hollins. No meaningful HPI or review of systems obtainable. Son present and understanding of the patient's condition, working towards SNF placement. Case discussed with son and case management simultaneously. Input greatly appreciated. Vitals noted, in general she is awake and but does not appear to be oriented. No distress. HEENT normocephalic atraumatic mucous membranes moist. Breathing unlabored no accessory muscle use good effort. Acute hypoxic respiratory failureappears to have been related to HFpEFnow improving with diuresis. Continue gentle diuresis, appears to be approaching baseline Dementiaappears to need a higher level of care. PT/OT eval and treat, case management input appreciated. DVT prophylaxisapixaban. Stable for MedSurg Subjective 89 y.o F found in bed this AM in NAD. Pt with baseline dementia, but notes feels overall better since admission, breathing improved. Has no acute concerns or complaints. Spoke with and CM about placement into snf from [facility] for higher level of care. Review of Systems Review of Systems: All systems reviewed & are unremarkable except as noted in HPI & below Physical Exam Constitutional: WD/WN, vitals as above Eyes: PERRL, conjunctivae normal, anicteric sclerae ENMT: external ear and nose normal, oropharynx normal Respiratory: mild crackles at bases b/l some scattered wheezes Cardiovascular: RRR, no murmur, no edema Gastrointestinal (Abdomen): normal bowel sounds, soft, nontender, no hepatosplenomegaly Skin: no rashes, warm and dry Psychiatric: dementia Results & Data Vital Signs (Past 12 Hours) Vital Signs Temp Pulse Pulse Resp BP BP Pulse Ox 04/27/19 15:55 36.8 C 83 20 133/84 94 04/27/19 11:14 36.6 C 79 21 121/80 94 04/27/19 11:07 80 18 95 04/27/19 08:06 36.5 C 93 H 21 141/81 H 96 04/27/19 07:34 90 20 94 04/27/19 07:30 84 04/27/19 05:06 162/84 H 97 04/27/19 04:48 94 H Laboratory Results Laboratory Results - last 24 hr 04/27/19 04/27/19 04/27/19 00:45 00:45 01:00 WBC 9.45 RBC 4.06 L Hgb 12.0 Hct 37.6 MCV 92.6 MCH 29.6 MCHC 31.9 L RDW Std Deviation 53.5 H RDW Coeff of Nicole 16.2 H Plt Count 316 MPV 9.3 Immature Gran % (Auto) 0.4 Neut % (Auto) 56.9 Lymph % (Auto) 30.1 [place] % (Auto) 8.4 Eos % (Auto) 3.2 Baso % (Auto) 1.0 Immature Gran # (Auto) 0.04 H Neut # (Auto) 5.39 Lymph # (Auto) 2.84 [place] # (Auto) 0.79 H Eos # (Auto) 0.30 Baso # (Auto) 0.09 Sodium 142 Potassium 4.0 Chloride 110 H Carbon Dioxide 26 Anion Gap 6.0 BUN 21 H Creatinine 0.73 Est Cr Clr Drug Dosing 42.3 Est GFR ( Amer) 84.6 Est GFR (Non-Af Amer) 73.0 BUN/Creatinine Ratio 29.1 H Glucose 114 H Calcium 9.2 Magnesium 2.1 Total Bilirubin 1.0 AST 58 H ALT 69 Alkaline Phosphatase 168 H Total Protein 7.3 Albumin 3.2 L Globulin 4.1 H Albumin/Globulin Ratio 0.8 L TSH 6.230 H Free T4 1.12 Urine Color Yellow Urine Appearance Cloudy A Urine pH 7.5 Ur Specific [place] 1.016 Urine Protein 2+ H Urine Glucose (UA) Negative Urine Ketones Negative Urine Blood Negative Urine Nitrite Negative Urine Bilirubin Negative Urine Urobilinogen Negative Ur Leukocyte Esterase Negative Urine WBC (Auto) 1-5 Urine RBC (Auto) 0-4 U Hyaline Cast (Auto) 0 U Epithel Cells (Auto) 20-30 H Urine Bacteria (Auto) 2+ H Nasal Screen MRSA (PCR) 04/27/19 03:13 WBC RBC Hgb Hct MCV MCH MCHC RDW Std Deviation RDW Coeff of Nicole Plt Count MPV Immature Gran % (Auto) Neut % (Auto) Lymph % (Auto) [place] % (Auto) Eos % (Auto) Baso % (Auto) Immature Gran # (Auto) Neut # (Auto) Lymph # (Auto) [place] # (Auto) Eos # (Auto) Baso # (Auto) Sodium Potassium Chloride Carbon Dioxide Anion Gap BUN Creatinine Est Cr Clr Drug Dosing Est GFR ( Amer) Est GFR (Non-Af Amer) BUN/Creatinine Ratio Glucose Calcium Magnesium Total Bilirubin AST ALT Alkaline Phosphatase Total Protein Albumin Globulin Albumin/Globulin Ratio TSH Free T4 Urine Color Urine Appearance Urine pH Ur Specific [place] Urine Protein Urine Glucose (UA) Urine Ketones Urine Blood Urine Nitrite Urine Bilirubin Urine Urobilinogen Ur Leukocyte Esterase Urine WBC (Auto) Urine RBC (Auto) U Hyaline Cast (Auto) U Epithel Cells (Auto) Urine Bacteria (Auto) Nasal Screen MRSA (PCR) Negative Medications Administered Current Inpatient Medications Acetaminophen (Tylenol) 650 mg PO Q4H PRN PRN Reason: Fever Or Pain Stop: 05/27/19 03:07 Last Admin: 04/27/19 03:58 Dose: 650 mg Documented by: Al Hydrox/Mg Hydrox/Simethicone (Maalox) 15 ml PO Q4H PRN PRN Reason: Dyspepsia Stop: 05/27/19 03:07 Albuterol (Duoneb) 3 ml NEB QIDR [facility] Stop: 05/27/19 06:59 Last Admin: 04/27/19 15:06 Dose: Not Given Documented by: Amlodipine Besylate (Norvasc) 2.5 mg PO QPM [facility] Stop: 05/27/19 20:59 Apixaban (Eliquis) 2.5 mg PO BID [facility] Stop: 05/27/19 08:59 Last Admin: 04/27/19 08:28 Dose: 2.5 mg Documented by: Aspirin (Ecotrin Ectab) 81 mg PO QAM [facility] Stop: 05/27/19 08:59 Last Admin: 04/27/19 08:26 Dose: 81 mg Documented by: Bisacodyl (Dulcolax) 10 mg IN DAILY PRN PRN Reason: Constipation Stop: 05/27/19 03:07 Docusate Sodium (Colace) 100 mg PO BID [facility] Stop: 05/27/19 08:59 Last Admin: 04/27/19 08:30 Dose: 100 mg Documented by: Furosemide 40 mg/ Syringe 4 mls @ 4 mls/min IV QAM [facility] Stop: 05/27/19 08:59 Last Admin: 04/27/19 08:26 Dose: 4 mls/min Documented by: Latanoprost (Xalatan Oph) 1 drops OPB HS [facility] Stop: 05/27/19 20:59 Levothyroxine Sodium (Synthroid) 75 mcg PO DAILYBB [facility] Stop: 05/27/19 06:29 Last Admin: 04/27/19 05:32 Dose: 75 mcg Documented by: Losartan Potassium (Cozaar) 100 mg PO DAILY [facility] Stop: 05/27/19 08:59 Last Admin: 04/27/19 08:27 Dose: 100 mg Documented by: Magnesium Hydroxide (Milk Of Magnesia) 30 ml PO Q12H PRN PRN Reason: Constipation Stop: 05/27/19 03:07 Metoprolol Tartrate (Lopressor) 50 mg PO BID [facility] Stop: 05/27/19 08:59 Last Admin: 04/27/19 08:28 Dose: 50 mg Documented by: Miscellaneous (Order Awaiting Action) 1 ea N/A QS [facility] Stop: 05/27/19 07:59 Last Admin: 04/27/19 15:27 Dose: Not Given Documented by: Multivitamins (Multivitamin Tab) 1 tab PO DAILY [place] Stop: 05/27/19 08:59 Last Admin: 04/27/19 08:28 Dose: 1 tab Documented by: Multivitamins/Minerals (Caltrate Plus) 1 tab PO DAILY [place] Stop: 05/27/19 08:59 Last Admin: 04/27/19 08:28 Dose: 1 tab Documented by: Ondansetron HCl (Zofran) 4 mg IV Q6H PRN PRN Reason: Nausea Stop: 05/27/19 03:07 Polyethylene Glycol (Miralax Powder Packet) 17 gm PO DAILY@1200 PRN PRN Reason: Constipation Stop: 05/27/19 11:59 Pravastatin Sodium (Pravachol) 20 mg PO HS [facility] Stop: 05/27/19 20:59 Prednisone (Prednisone) 10 mg PO DAILY [facility] Stop: 05/27/19 08:59 Last Admin: 04/27/19 08:27 Dose: 10 mg Documented by: Sennosides (Senokot) 8.6 mg PO DAILY@1200 PRN PRN Reason: Constipation Stop: 05/27/19 11:59 PG Care Time/CCT Total # of Minutes Spent Total Time Spent with Patient: Total time spent is greater than 50% in coordination of care (as documented) at patient's floor/unit and/or counseling patient: Resident Activity Tracking Resident Involvement: Resident Care Provided Care Provided: Adult Hospital Medicine (1) CHF (congestive heart failure) Heart failure chronicity: acute on chronic Heart failure type: unspecified Qualified Code(s): I50.9 - Heart failure, unspecified
[2019-04-27] MEDS: AMLODIPINE BESYLATE 5 MG TAB PO SCH (20:37)
[2019-04-27] MEDS: PRAVASTATIN SOD 20 MG TAB PO SCH (20:38)
[2019-04-27] MEDS: LATANOPROST 0.005% OP SOLN 2.5 ML BTL OPB SCH (21:41)
[2019-04-28] MEDS: LEVOTHYROXINE SODIUM 75 MCG TABLET PO SCH (05:48)
[2019-04-28 07:15] LABS: Basophils # (auto) 0.05 K/uL (0-0.2); Basophils % (auto) 0.4 %; Eosinophils # (auto) 0.32 K/uL (0-0.5); Eosinophils % (auto) 2.5 %; Hematocrit (blood only) 37.2 % (37-47); Hemoglobin 12.3 g/dL (12.0-16.0); Immature Granulocytes # (auto) 0.03 K/uL (0.00-0.02); Immature Granulocytes % (auto) 0.2 %; Lymphocytes # (auto) 3.02 K/uL (1.2-3.4); Lymphocytes % (auto) 23.7 %; Mean Corpuscular Hgb Conc 33.1 g/dL (32-36); Mean Corpuscular Volume 91.9 fL (80-100); Mean Platelet Volume 9.2 fL (7.4-10.4); Monocytes # (auto) 1.34 K/uL (0.11-0.59); Monocytes % (auto) 10.5 %; Neutrophils # (auto) 7.99 K/uL (1.4-6.5); Neutrophils % (auto) 62.7 %; Platelet Count 320 K/uL (130-400); RDW Coefficient of Variation 16.2 % (11.5-14.5); RDW Standard Deviation 53.2 fL (36.4-46.3); Red Blood Count 4.05 M/uL (4.2-5.4); White Blood Count 12.75 K/uL (4.8-10.8)
[2019-04-28] MEDS: ALBUT/IPRATROP 3MG/0.5MG NEB 3 ML VIAL NEB SCH ×4 (07:35→19:36)
[2019-04-28] MEDS: CALCIUM 600MG + VIT D 400 IU TAB PO SCH (07:58)
[2019-04-28] MEDS: APIXABAN 2.5 MG TAB PO SCH ×2 (07:59→21:14)
[2019-04-28] MEDS: DOCUSATE SODIUM 100 MG CAP PO SCH ×2 (07:59→21:38)
[2019-04-28] MEDS: LOSARTAN POTASSIUM 50 MG TAB PO SCH (07:59)
[2019-04-28] MEDS: ASPIRIN 81 MG ECTAB PO SCH (07:59)
[2019-04-28 08:00] LABS: BUN Creatinine Ratio 34.6 (10-20); Calcium 9.1 mg/dl (8.5-10.1); Creatinine Clr Calc Pharmacy 27.9 ml/min; Est GFR (African American) 51.5; Est GFR (Non-African American) 44.5
[2019-04-28] MEDS: predniSONE 10 MG TABLET PO SCH (08:00)
[2019-04-28] MEDS: FUROSEMIDE 40 MG in SYRINGE 0 ML IV SCH (08:00)
[2019-04-28] MEDS: MULTIVITAMIN TAB PO SCH (08:00)
[2019-04-28] MEDS: METOPROLOL TARTRATE 50 MG TAB PO SCH ×2 (08:00→21:13)
[2019-04-28] MEDS: POTASSIUM CHLORIDE / WTR 10 MEQ/100 ML PLCT IV SCH ×4 (09:32→14:46)
--- NOTE | 2019-04-28 15:35 | Family Medicine Progress Note ---
Date of Service April 28, 2019 Assessment & Plan (1) CHF (congestive heart failure): 89 y/o F with PMH Dementia, HTN, hypothyroid, CHF, CKD III, A fib with recent ED visit on 04/24 for SOB with unremarkable workup presents from [facility] with concerns for low pulse ox found to have significantly worse CXR favouring CHF exacerbation. Acute respiratory failure with hypoxia -2/2 acute CHF, HFpEF -CXR: Progression of interstitial thickening and bilateral opacities which favors pulmonary edema. Small bilateral pleural effusions. -on admit, thought to have ?aspiration pneumonia and started on vancomycin IV, Zosyn IV. 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 -Metabolic encephalopathy contributing to underlying cognitive impairment, with worsening interaction -CM working on snf placement for higher level of care CKD III -Creatinine stable HTN/Atrial fibrillation -Continue amlodipine 2.5 mg, aspirin 81mg, Eliquis 2.5 mg BID, losartan 100 mg and metoprolol tartrate 50 mg BID. Holding telmisartan, as patient is already on losartan Hypothyroid -Continue levothyroxine 75 mcg FEN/GI: HH Diet DVT Prophylaxis: Apixaban DNR/DNI Dispo: PCU Tele. CM working on snf placement. Family prefers [facility] Supervising Physician Co-Signing Physician Notes I personally examined the patient and verified all beatty points of history and exam, discussed case, and agree with decision making with Dr Hollins. No meaningful HPI or review of systems obtainable. Updated other son who is at the bedside. Later case management notes family has decided to return her to personal care. Vitals noted, in general she is awake and but does not appear to be oriented. No distress. HEENT normocephalic atraumatic mucous membranes moist. Breathing unlabored no accessory muscle use good effort. Acute hypoxic respiratory failureappears to have been related to HFpEFtransition to oral diuretics. Dementiafamily has now decided to return her to her current level of personal care. DVT prophylaxisapixaban. Subjective 89 y.o F found in bed this AM in NAD. Pt with baseline dementia, but notes feels overall better since admission, breathing improved. Has no acute concerns or complaints. Spoke with son and CM about placement into snf from [facility] for higher level of care. In the process currently. Review of Systems Review of Systems: All systems reviewed & are unremarkable except as noted in HPI & below Physical Exam Constitutional: WD/WN, vitals as above Eyes: PERRL, conjunctivae normal, anicteric sclerae ENMT: external ear and nose normal, oropharynx normal Respiratory: mild crackles at bases. Upper lung gonzalez CTAB Cardiovascular: RRR, no murmur, no edema Gastrointestinal (Abdomen): normal bowel sounds, soft, nontender, no hepat osplenomegaly Skin: no rashes, warm and dry Psychiatric: dementia Results & Data Vital Signs (Past 12 Hours) Vital Signs Temp Pulse Resp BP Pulse Ox 04/28/19 15:03 66 16 96 04/28/19 10:47 76 18 97 04/28/19 07:39 66 18 95 04/28/19 07:26 36.5 C 64 18 137/83 98 Laboratory Results Laboratory Results - last 24 hr 04/28/19 04/28/19 06:23 06:23 WBC 12.75 H RBC 4.05 L Hgb 12.3 Hct 37.2 MCV 91.9 MCH 30.4 MCHC 33.1 RDW Std Deviation 53.2 H RDW Coeff of Nicole 16.2 H Plt Count 320 MPV 9.2 Immature Gran % (Auto) 0.2 Neut % (Auto) 62.7 Lymph % (Auto) 23.7 [place] % (Auto) 10.5 Eos % (Auto) 2.5 Baso % (Auto) 0.4 Immature Gran # (Auto) 0.03 H Neut # (Auto) 7.99 H Lymph # (Auto) 3.02 [place] # (Auto) 1.34 H Eos # (Auto) 0.32 Baso # (Auto) 0.05 Sodium 142 Potassium 3.0 L D Chloride 105 Carbon Dioxide 31 Anion Gap 6.0 BUN 38 H D Creatinine 1.10 D Est Cr Clr Drug Dosing 27.9 Est GFR ( Amer) 51.5 Est GFR (Non-Af Amer) 44.5 BUN/Creatinine Ratio 34.6 H Glucose 82 Calcium 9.1 Medications Administered Current Inpatient Medications Acetaminophen (Tylenol) 650 mg PO Q4H PRN PRN Reason: Fever Or Pain Stop: 05/27/19 03:07 Last Admin: 04/27/19 03:58 Dose: 650 mg Documented by: Al Hydrox/Mg Hydrox/Simethicone (Maalox) 15 ml PO Q4H PRN PRN Reason: Dyspepsia Stop: 05/27/19 03:07 Albuterol (Duoneb) 3 ml NEB QIDR [facility] Stop: 05/27/19 06:59 Last Admin: 04/28/19 15:02 Dose: 3 ml Documented by: Amlodipine Besylate (Norvasc) 2.5 mg PO QPM [facility] Stop: 05/27/19 20:59 Last Admin: 04/27/19 20:37 Dose: 2.5 mg Documented by: Apixaban (Eliquis) 2.5 mg PO BID [facility] Stop: 05/27/19 08:59 Last Admin: 04/28/19 07:59 Dose: 2.5 mg Documented by: Aspirin (Ecotrin Ectab) 81 mg PO QAM [facility] Stop: 05/27/19 08:59 Last Admin: 04/28/19 07:59 Dose: 81 mg Documented by: Bisacodyl (Dulcolax) 10 mg HI DAILY PRN PRN Reason: Constipation Stop: 05/27/19 03:07 Docusate Sodium (Colace) 100 mg PO BID [facility] Stop: 05/27/19 08:59 Last Admin: 04/28/19 07:59 Dose: 100 mg Documented by: Furosemide (Lasix) 40 mg PO QAM [facility] Stop: 05/29/19 08:59 Latanoprost (Xalatan Oph) 1 drops OPB HS [facility] Stop: 05/27/19 20:59 Last Admin: 04/27/19 21:41 Dose: 1 drops Documented by: Levothyroxine Sodium (Synthroid) 75 mcg PO DAILYBB [facility] Stop: 05/27/19 06:29 Last Admin: 04/28/19 05:48 Dose: 75 mcg Documented by: Losartan Potassium (Cozaar) 100 mg PO DAILY [facility] Stop: 05/27/19 08:59 Last Admin: 04/28/19 07:59 Dose: 100 mg Documented by: Magnesium Hydroxide (Milk Of Magnesia) 30 ml PO Q12H PRN PRN Reason: Constipation Stop: 05/27/19 03:07 Metoprolol Tartrate (Lopressor) 50 mg PO BID [facility] Stop: 05/27/19 08:59 Last Admin: 04/28/19 08:00 Dose: 50 mg Documented by: Miscellaneous (Order Awaiting Action) 1 ea N/A QS [facility] Stop: 05/27/19 07:59 Last Admin: 04/28/19 07:53 Dose: Not Given Documented by: Multivitamins (Multivitamin Tab) 1 tab PO DAILY [facility] Stop: 05/27/19 08:59 Last Admin: 04/28/19 08:00 Dose: 1 tab Documented by: Multivitamins/Minerals (Caltrate Plus) 1 tab PO DAILY [facility] Stop: 05/27/19 08:59 Last Admin: 04/28/19 07:58 Dose: 1 tab Documented by: Ondansetron HCl (Zofran) 4 mg IV Q6H PRN PRN Reason: Nausea Stop: 05/27/19 03:07 Polyethylene Glycol (Miralax Powder Packet) 17 gm PO DAILY@1200 PRN PRN Reason: Constipation Stop: 05/27/19 11:59 Pravastatin Sodium (Pravachol) 20 mg PO HS [facility] Stop: 05/27/19 20:59 Last Admin: 04/27/19 20:38 Dose: 20 mg Documented by: Prednisone (Prednisone) 10 mg PO DAILY [facility] Stop: 05/27/19 08:59 Last Admin: 04/28/19 08:00 Dose: 10 mg Documented by: Sennosides (Senokot) 8.6 mg PO DAILY@1200 PRN PRN Reason: Constipation Stop: 05/27/19 11:59 PG Care Time/CCT Total # of Minutes Spent Total Time Spent with Patient: Total time spent is greater than 50% in coordination of care (as documented) at patient's floor/unit and/or counseling patient: Resident Activity Tracking Resident Involvement: Resident Care Provided Care Provided: Adult Hospital Medicine (1) CHF (congestive heart failure) Heart failure chronicity: acute on chronic Heart failure type: unspecified Qualified Code(s): I50.9 - Heart failure, unspecified
[2019-04-28] MEDS: AMLODIPINE BESYLATE 5 MG TAB PO SCH (21:14)
[2019-04-28] MEDS: PRAVASTATIN SOD 20 MG TAB PO SCH (21:15)
[2019-04-28] MEDS: LATANOPROST 0.005% OP SOLN 2.5 ML BTL OPB SCH (21:16)
[2019-04-29] MEDS: LEVOTHYROXINE SODIUM 75 MCG TABLET PO SCH (05:48)
[2019-04-29] MEDS: ALBUT/IPRATROP 3MG/0.5MG NEB 3 ML VIAL NEB SCH ×3 (07:02→15:16)
[2019-04-29 07:03] LABS: Basophils # (auto) 0.06 K/uL (0-0.2); Basophils % (auto) 0.5 %; Eosinophils # (auto) 0.34 K/uL (0-0.5); Eosinophils % (auto) 2.7 %; Hematocrit (blood only) 36.7 % (37-47); Hemoglobin 11.8 g/dL (12.0-16.0); Immature Granulocytes # (auto) 0.03 K/uL (0.00-0.02); Immature Granulocytes % (auto) 0.2 %; Lymphocytes # (auto) 3.45 K/uL (1.2-3.4); Lymphocytes % (auto) 27.1 %; Mean Corpuscular Hgb Conc 32.2 g/dL (32-36); Mean Corpuscular Volume 91.5 fL (80-100); Mean Platelet Volume 9.3 fL (7.4-10.4); Monocytes # (auto) 1.19 K/uL (0.11-0.59); Monocytes % (auto) 9.3 %; Neutrophils # (auto) 7.67 K/uL (1.4-6.5); Neutrophils % (auto) 60.2 %; Platelet Count 323 K/uL (130-400); RDW Coefficient of Variation 16.1 % (11.5-14.5); Red Blood Count 4.01 M/uL (4.2-5.4); White Blood Count 12.74 K/uL (4.8-10.8)
[2019-04-29 07:37] LABS: Creatinine Clr Calc Pharmacy 25.8 ml/min; Est GFR (African American) 46.9; Est GFR (Non-African American) 40.4; Potassium 3.6 mmol/L (3.5-5.1)
[2019-04-29] MEDS: LOSARTAN POTASSIUM 50 MG TAB PO SCH (07:41)
[2019-04-29] MEDS: APIXABAN 2.5 MG TAB PO SCH (07:41)
[2019-04-29] MEDS: DOCUSATE SODIUM 100 MG CAP PO SCH (07:41)
[2019-04-29] MEDS: ASPIRIN 81 MG ECTAB PO SCH (07:41)
[2019-04-29] MEDS: CALCIUM 600MG + VIT D 400 IU TAB PO SCH (07:41)
[2019-04-29] MEDS: predniSONE 10 MG TABLET PO SCH (07:42)
[2019-04-29] MEDS: METOPROLOL TARTRATE 50 MG TAB PO SCH (07:42)
[2019-04-29] MEDS: MULTIVITAMIN TAB PO SCH (07:42)
[2019-04-29] MEDS ORDERED: FUROSEMIDE 40 MG TAB PO SCH (09:00)
--- NOTE | 2019-04-29 10:10 | Discharge Summary ---
Date of Service April 29, 2019 Admission HPI Per Admitting Provider The patient herself was not able to contribute significantly to HPI or review of systems due to baseline dementia. [facility] 89[facility] department by family due to concerns regarding low pulse ox and elevated blood pressure recorded earlier in the day there. The patient had initially been brought by family to the ED on 04/24/2019 due to shortness of breath. Work-up at that time included a chest x-ray that was normal and laboratories that were normal. During her work-up in the ED tonight, chest x-ray is significantly worse, [place] wing a mixture of CHF and probable aspiration pneumonia, and oxygenation is showing more hypoxia as well. Her son no longer feels that she is able to be taking care of at just the personal fdc level such as [facility], and has asked questions about changing her type of residents after discharge to that of assisted living. Admission Exam Per Admitting Provider The patient is awake, alert and oriented 1, well developed and well nourished, normocephalic and atraumatic, lying in bed and in no acute distress. HEENT--PERRL, EOMI, mucous membranes and oropharynx dry. Patient is frequently clearing her throat. Neck--supple. No JVD. No bruits. Thyroid normal, trachea midline, no adenopathy. Heart--normal S1 and S2. No murmurs, rubs or gallops. Lungs--coarse breath sounds bilaterally, with scattered wheezes. No respiratory distress, no accessory muscle use. Abdomen--normal bowel sounds and soft. Nontender. Nondistended. Extremities--no cyanosis or clubbing. No edema. There are good distal pulses b/l. Dermatologic--normal skin turgor, normal color, no abnormal lymph nodes, no rash. Neurologic--cranial nerves II through XII grossly intact. Rheumatologic--normal range of motion. Psychiatric--dementia with normal affect Principal Diagnosis CHF Exacerbation Discharge Exam General: Alert. No acute distress, laying bed. HEENT: NC/AT, PERRLA, EOMI, oropharynx moist. Chest: Nontender to palpation. CV: RRR, Normal s1, s2. No murmurs appreciated Resp: Breath sounds clear bilaterally on back, no increased effort of breathing. Abdomen: Soft, nontender, nondistended. No guarding. No organomegaly appreciated. Extremities: Trace edema in lower extremities bilaterally Discharge Data Allergies Allergy/AdvReac Type Severity Reaction Status Date / Time No Known Allergies Allergy Unverified 04/27/19 01:53 Consultations 04/27/19 01:19 ED Decision to Admit Stat 04/27/19 03:08 Consult Case Management - Discharge Planning Routine Hospital Course (1) CHF (congestive heart failure): 89 y/o F with PMH Dementia, HTN, hypothyroidism, CHF, CKD III, A fib who presented from [facility] with concerns for hypoxia. Chest XR on admission suggestive of a CHF exacerbation rather than a pneumonia. Admitted on Apr 27 and discharged on Apr 29. Acute respiratory failure with hypoxia -stable on discharge. -2/2 acute CHF, HFpEF -ECHO 04/27: LV hyperdynamic, no regional wall motion abnormalities noted, EF >70%, Moderate concentric LVH, Moderate Mitral/Tricuspid regurgitation -CXR: Progression of interstitial thickening and bilateral opacities which favors pulmonary edema. Small bilateral pleural effusions. -on admit, thought to have questionable aspiration pneumonia and started on vancomycin IV, Zosyn IV. Upon review of films, determined more likely acute CHF, so dc'd antibiotics -Lasix 40 mg IV qAM given and transitioned to PO 40mg. Discharged with 1 month supply of Lasix 40mg PO to be taken QAM. 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 -Metabolic encephalopathy contributing to underlying cognitive impairment, with worsening interaction -Discharged to snf for higher level of care CKD III -Creatinine stable HTN/Atrial fibrillation -Continue amlodipine 2.5 mg, aspirin 81mg, Eliquis 2.5 mg BID, losartan 100 mg and metoprolol tartrate 50 mg BID. -Holding telmisartan while hospitalized, as patient is already on losartan. -Advised on discharge to continue to hold telmisartan. Hypothyroid -Continue levothyroxine 75 mcg Total Time Total Time Spent Total Time Spent (In Minutes): Less than 30 Discharge Plan Discharge Items Patient Disposition: Transfer Residential Fac Reason For Visit: hypertension, low pulse ox Discharge Diagnosis: CHF Exacerbation Discharge Goals: Decrease discomfort, Improve disease control and Improve function Activity: Per 'Additional Instructions' section Non-emergency contact: Primary Care Provider Call non-emergency contact if: your symptoms worsen and you have a fever Follow-up/Referrals: Charles Blanchard MD [Primary Care Provider] - Diet: Heart Healthy and Low Sodium (2gm) Addtl Provider Instructions: Pt was admitted with acute respiratory failure with hypoxia secondary to acute CHF exacerbation. -Started on Lasix 40mg QAM to help with hypoxia secondary to CHF exacerbation. Continue administration. -Also given prescription for BMP to be drawn on May 03 for electrolyte and creatinine monitoring. -Continue to hold telmisartan given she is also on losartan (an ARB as well) and current BP level. 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 Prescriptions: New furosemide 40 mg Tablet 40 mg PO QAM Qty: 30 RF: 0 Continued multivitamin Tablet 1 tab PO DAILY RF: 0 omega-3 fatty acids 1,000 mg Capsule 1,000 mg PO DAILY RF: 0 levothyroxine 75 mcg Tablet 75 mcg PO DAILY RF: 0 pravastatin 20 mg Tablet 20 mg PO HS RF: 0 darifenacin 7.5 mg Tablet Extended Release 24 Hr 7.5 mg PO DAILY RF: 0 calcium carbonate-vitamin D3 [Os-[place] 500 + D3] 500 mg(1,250mg) -200 unit Tablet 1 tab PO DAILY RF: 0 aspirin [Ecotrin Low Strength] 81 mg Tablet,Delayed Release (Dr/Ec) 81 mg PO QAM Qty: 30 RF: 0 latanoprost 0.005 % Drops 1 drp OPB HS Qty: 15 RF: 0 prednisone 10 mg tablet 10 mg PO DAILY RF: 0 amlodipine 2.5 mg tablet 2.5 mg PO QPM Qty: 30 RF: 0 docusate sodium 100 mg Capsule 100 mg PO BID RF: 0 Eliquis 2.5 mg Tablet 2.5 mg PO BID RF: 0 sennosides [Senna Lax] 8.6 mg Tablet 8.6 mg PO DAILY@1200 PRN (Reason: Constipation) RF: 0 acetaminophen 325 mg Tablet 650 mg PO Q4H PRN (Reason: Fever Or Pain) RF: 0 polyethylene glycol 3350 [Miralax] 17 gram Powder In Packet 17 g PO DAILY@1200 PRN (Reason: Constipation) RF: 0 magnesium hydroxide [Milk of Magnesia] 400 mg/5 mL Suspension 30 ml PO DAILY PRN (Reason: Constipation) RF: 0 bisacodyl 10 mg Suppository 10 mg [place] DAILY PRN (Reason: Constipation) RF: 0 metoprolol tartrate 50 mg tablet 50 mg PO BID Qty: 60 RF: 0 losartan 100 mg tablet 100 mg PO DAILY RF: 0 Discontinued telmisartan 80 mg Tablet 80 mg PO BID RF: 0 Stand-Alone Forms: [facility] Discharge Orders: Discharge Order (Routine); Ordered 04/29/19 Ordered By: Debbi Lassiter Skilled Items Patient informed of condition?: Yes DNR: Yes Discharge Level of Care: Acute rehab Communicable Disease: No Discharge Prognosis: Stable Admission Data Admit Date/Time: 04/27/19 02:17 Attending Provider: Luis Scales Admit Provider: Sergei Diaz Primary Care Provider: Charles Blanchard Other Providers: Sergei Diaz Service: Medical Other Interventions: Discharge Summary Assessment (RN) Last Done: 04/29/19 13:17 DC Date/Time DO NOT enter until pt leaves facility: 04/29/19 16:12 Supervising Physician Co-Signing Physician Notes I personally examined the patient and verified all beatty points of history and exam, discussed case, and agree with decision making with Dr Lassiter. No meaningful HPI or review of systems obtainable. Stable for return to personal care Vitals noted, in general she is awake and but does not appear to be oriented. No distress. HEENT normocephalic atraumatic mucous membranes moist. Breathing unlabored no accessory muscle use good effort. Acute hypoxic respiratory failureappears to have been related to HFpEForal med regimen. Oral diuretics, follow basic metabolic panel, reintroduce afterload reduction as she tolerates. Dementiafamily has now decided to return her to her current level of personal care. Stable for discharge from the hospital DVT prophylaxisapixaban.
== END 2019-04-29 16:12 | disposition home or self-care (01) | DRG 291 ==
LOC: ED 00:07 → 2S 02:17 → SUATTDRO 02:17 → 2S 02:47 → 2N 18:11
DX: N18.3 Chronic kidney disease, stage 3 (moderate); J69.0 Pneumonitis due to inhalation of food and vomit; G31.84 Mild cognitive impairment of uncertain or unknown etiology; G93.41 Metabolic encephalopathy; Z66 Do not resuscitate; Z99.81 Dependence on supplemental oxygen; I13.0 Hypertensive heart and chronic kidney disease with heart failure and stage 1 through stage 4 chronic kidney disease, or unspecified chronic kidney disease; Z86.73 Personal history of transient ischemic attack (TIA), and cerebral infarction without residual deficits; R03.0 Elevated blood-pressure reading, without diagnosis of hypertension; M54.6 Pain in thoracic spine; J96.01 Acute respiratory failure with hypoxia; Z79.82 Long term (current) use of aspirin; Z79.01 Long term (current) use of anticoagulants; E03.9 Hypothyroidism, unspecified; I48.91 Unspecified atrial fibrillation